=== PATIENT | female | born 1935 | race Caucasian/White ===

== ENCOUNTER 2021-03-13 18:01 | Inpatient (IN) | payer MEDICARE, BC ==
--- NOTE | 2021-03-13 18:26 | ED ---
General Adult HPI - General Chief complaint: Abdominal Pain Stated complaint: Abdominal Pain Time Seen by Provider: 03/13/21 18:02 Source: patient, RN/MD (Case discussed with Dr. Burnett), EMS, RN notes reviewed, old records reviewed (Review of report from outside facility) Mode of arrival: EMS Limitations: no limitations - History of Present Illness Initial comments: Patient is a pleasant 85-year-old female presenting to the emergency Department with abdominal discomfort. Patient does have history of chronic abdominal problems. Onset of symptoms this time was around 4 days ago. Patient did have some vomiting and diarrhea. Discomfort was somewhat severe earlier. Patient has received pain medication and states discomfort is significantly improved and rated 4/10. No nausea at this time. Patient denies ever having fevers. Patient was seen at outside facility with computed tomography scan concerning for ulceration lower portion of the stomach with some local fluid and foci of free intraperitoneal air. patient did receive Rocephin and Flagyl. Patient had white blood cell count of 13 and hemoglobin of 12. - Related Data Allergies Allergy/AdvReac Type Severity Reaction Status Date / Time Penicillins Allergy Rash/Hives Verified 03/13/21 18:25 Sulfa (Sulfonamide Allergy Swelling Verified 03/13/21 18:25 Antibiotics) Review of Systems ROS Statement: Those systems with pertinent positive or pertinent negative responses have been documented in the HPI. ROS Other: All systems not noted in ROS Statement are negative. Constitutional: Denies: fever Eyes: Denies: eye pain ENT: Denies: ear pain Respiratory: Denies: cough Cardiovascular: Denies: chest pain Endocrine: Denies: fatigue Gastrointestinal: Reports: as per HPI, abdominal pain, nausea, vomiting, diarrhea Genitourinary: Denies: dysuria Musculoskeletal: Denies: back pain Skin: Denies: rash Neurological: Denies: weakness Past Medical History Past Medical History: Cancer Additional Past Medical History / Comment(s): Collitis, bladder cancer History of Any Multi-Drug Resistant Organisms: None Reported Past Surgical History: No Surgical Hx Reported Smoking Status: Current every day smoker Past Alcohol Use History: Daily Past Drug Use History: None Reported General Exam Limitations: no limitations General appearance: alert, in no apparent distress Head exam: Present: normocephalic Eye exam: Present: normal appearance Neck exam: Present: normal inspection Respiratory exam: Present: normal lung sounds bilaterally Cardiovascular Exam: Present: regular rate, normal rhythm GI/Abdominal exam: Present: soft, tenderness (Mild to moderate epigastric tenderness), normal bowel sounds. Absent: distended, guarding, rebound, rigid, pulsatile mass Extremities exam: Present: normal inspection Neurological exam: Present: alert Psychiatric exam: Present: normal affect, normal mood Skin exam: Present: normal color Course Vital Signs 03/13/21 18:02 Temperature 99.4 F Pulse Rate 93 Respiratory 18 Rate Blood Pressure 152/66 O2 Sat by Pulse 94 L Oximetry Medical Decision Making - Medical Decision Making Patient updated on plan. Case was discussed with Dr. Alexander who will admit. He requests IV antibiotics, nothing by mouth Disposition Clinical Impression: Abdominal pain, Gastric perforation Disposition: ADMITTED IP TO THIS HOSP Is patient prescribed a controlled substance at d/c from ED?: No Referrals: Yina Mancuso DO [Primary Care Provider] - 1-2 days Decision Time: 18:29
[2021-03-13] MEDS ORDERED: NALOXONE 0.4 MG/ML 1 ML VIAL IV PRN (18:30)
[2021-03-13] MEDS: SODIUM CHLORIDE 0.9% 1,000 ML IV SCH (19:29)
[2021-03-13] MEDS: HYDROmorphone 0.5 MG/0.5 ML SYRINGE IVP PRN (19:34)
[2021-03-13] MEDS: PANTOPRAZOLE 40 MG/10 ML VIAL IV SCH (19:35)
[2021-03-14] MEDS: metroNIDAZOLE-NS PMX 500 MG in SALINE 1 100ML.BAG IVPB SCH ×4 (00:16→17:02)
[2021-03-14] MEDS: SODIUM CHLORIDE 0.9% 1,000 ML IV SCH ×3 (00:16→22:16)
[2021-03-14] MEDS: ONDANSETRON 4 MG/2 ML VIAL IVP PRN ×2 (03:36→22:15)
[2021-03-14] MEDS: PANTOPRAZOLE 40 MG/10 ML VIAL IV SCH (08:55)
[2021-03-14] MEDS: HYDROmorphone 0.5 MG/0.5 ML SYRINGE IVP PRN ×2 (08:58→20:16)
[2021-03-14 11:25] LABS: ALT 10 U/L (4-34); AST 18 U/L (14-36); African American GFR (CKD) >90 (>60 ml/min/1.73 sqM); Albumin 3.1 g/dL (3.5-5.0); Albumin/Globulin Ratio 1.1; Alkaline Phosphatase 55 U/L (38-126); Anion Gap 5 mmol/L; Blood Urea Nitrogen 27 mg/dL (7-17); Calcium 8.9 mg/dL (8.4-10.2); Carbon Dioxide 26 mmol/L (22-30); Chloride 109 mmol/L (98-107); Globulin 2.7 g/dL; Glucose 78 mg/dL (74-99); Non-African American GFR(CKD) 84 (>60 ml/min/1.73 sqM); Potassium 3.8 mmol/L (3.5-5.1); Sodium 140 mmol/L (137-145); Total Bilirubin 0.6 mg/dL (0.2-1.3); Total Protein 5.8 g/dL (6.3-8.2)
[2021-03-14 11:47] LABS: Basophils # (A) 0.03 X 10*3/uL (0.00-0.10); Basophils % (A) 0.3 %; Eosinophils # (A) 0.07 X 10*3/uL (0.04-0.35); Eosinophils % (A) 0.8 %; HCT 32.4 % (37.2-46.3); HGB 10.6 g/dL (12.0-15.0); Immature Grans, Automated 0.4 %; Lymphocytes % (A) 9.7 %; MCH 31.3 pg (27.0-32.0); MCHC 32.7 g/dL (32.0-37.0); MCV 95.6 fL (80.0-97.0); Mean Platelet Volume 8.9 fL (9.5-12.2); Monocytes # (A) 0.59 X 10*3/uL (0.20-1.00); Monocytes % (A) 6.4 %; NRBC Per 100 WBC 0 /100 WBCS (0.0-0.0); Neutrophils # (A) 7.61 X 10*3/uL (1.80-7.70); Neutrophils % (A) 82.4 %; Platelet Count 302 X 10*3/uL (140-440); RBC 3.39 X 10*6/uL (4.10-5.20); RDW 12.5 % (11.5-14.5); WBC 9.24 X 10*3/uL (4.50-10.00)
--- NOTE | 2021-03-14 12:58 | P.GSHP ---
History of Present Illness H&P Date: 03/14/21 Chief Complaint: Epigastric pain This 85-year-old female who was transferred to the hospital for complaints of epigastric pain. Apparently her CAT scan showed some inflammatory changes around stomach. Today the patient feels better. She states her pain is improved. Past Medical History Past Medical History: Cancer Additional Past Medical History / Comment(s): Collitis, bladder cancer History of Any Multi-Drug Resistant Organisms: None Reported Past Surgical History: No Surgical Hx Reported Past Anesthesia/Blood Transfusion Reactions: No Reported Reaction Past Psychological History: Depression Smoking Status: Current every day smoker Past Alcohol Use History: Daily Additional Past Alcohol Use History / Comment(s): DRINKS 1 GLASS OF RED WINE WITH SUPPER DAILY Past Drug Use History: None Reported - Past Family History Father History Unknown: Yes Medications and Allergies Home Medications Medication Instructions Recorded Confirmed Type Budesonide [Budesonide EC] 3 mg PO DAILY 03/13/21 03/13/21 History Cholecalciferol [Vitamin D3 (25 50 mcg PO DAILY 03/13/21 03/13/21 History Mcg = 1000 Iu)] Citalopram Hydrobromide [CeleXA] 40 mg PO DAILY 03/13/21 03/13/21 History Cyanocobalamin (Vitamin B-12) 1,000 mcg PO DAILY 03/13/21 03/13/21 History [Vitamin B-12] Multivit-Min/Iron/Folic/Lutein 1 tab PO DAILY 03/13/21 03/13/21 History [Centrum Silver Women Tablet] Spiriva Respimat 1.25 Mcg/Act 1 puff INHALATION RT-DAILY 03/13/21 03/13/21 History Inhaler traZODone HCL 50 mg PO HS 03/13/21 03/13/21 History Allergies Allergy/AdvReac Type Severity Reaction Status Date / Time Penicillins Allergy Rash/Hives Verified 03/13/21 18:25 Sulfa (Sulfonamide Allergy Swelling Verified 03/13/21 18:25 Antibiotics) Surgical - Exam Vital Signs Temp Pulse Resp BP Pulse Ox 99.4 F 93 18 152/66 94 L 03/13/21 18:02 03/13/21 18:02 03/13/21 18:02 03/13/21 18:02 03/13/21 18:02 - General well developed, well nourished, no distress - Eyes PERRL - ENT normal pinna - Neck no masses - Respiratory normal expansion - Cardiovascular Rhythm: regular - Abdomen Abdomen: soft, non tender Results - Labs 03/14/21 07:39 03/14/21 07:39 Abnormal Lab Results - Last 24 Hours (Table) 03/14/21 03/14/21 Range/Units 07:39 07:39 RBC 3.39 L (4.10-5.20) X 10*6/uL Hgb 10.6 L (12.0-15.0) g/dL Hct 32.4 L (37.2-46.3) % MPV 8.9 L (9.5-12.2) fL Chloride 109 H (98-107) mmol/L BUN 27 H (7-17) mg/dL Total Protein 5.8 L (6.3-8.2) g/dL Albumin 3.1 L (3.5-5.0) g/dL Diabetes panel 03/14/21 Range/Units 07:39 Sodium 140 (137-145) mmol/L Potassium 3.8 (3.5-5.1) mmol/L Chloride 109 H (98-107) mmol/L Carbon Dioxide 26 (22-30) mmol/L BUN 27 H (7-17) mg/dL Creatinine 0.60 (0.52-1.04) mg/dL Glucose 78 (74-99) mg/dL Calcium 8.9 (8.4-10.2) mg/dL AST 18 (14-36) U/L ALT 10 (4-34) U/L Alkaline Phosphatase 55 (38-126) U/L Total Protein 5.8 L (6.3-8.2) g/dL Albumin 3.1 L (3.5-5.0) g/dL Calcium panel 03/14/21 Range/Units 07:39 Calcium 8.9 (8.4-10.2) mg/dL Albumin 3.1 L (3.5-5.0) g/dL Pituitary panel 03/14/21 Range/Units 07:39 Sodium 140 (137-145) mmol/L Potassium 3.8 (3.5-5.1) mmol/L Chloride 109 H (98-107) mmol/L Carbon Dioxide 26 (22-30) mmol/L BUN 27 H (7-17) mg/dL Creatinine 0.60 (0.52-1.04) mg/dL Glucose 78 (74-99) mg/dL Calcium 8.9 (8.4-10.2) mg/dL Adrenal panel 03/14/21 Range/Units 07:39 Sodium 140 (137-145) mmol/L Potassium 3.8 (3.5-5.1) mmol/L Chloride 109 H (98-107) mmol/L Carbon Dioxide 26 (22-30) mmol/L BUN 27 H (7-17) mg/dL Creatinine 0.60 (0.52-1.04) mg/dL Glucose 78 (74-99) mg/dL Calcium 8.9 (8.4-10.2) mg/dL Total Bilirubin 0.6 (0.2-1.3) mg/dL AST 18 (14-36) U/L ALT 10 (4-34) U/L Alkaline Phosphatase 55 (38-126) U/L Total Protein 5.8 L (6.3-8.2) g/dL Albumin 3.1 L (3.5-5.0) g/dL Assessment and Plan Assessment: History of epigastric pain. Patient will undergo computed tomography scan to evaluate for inflammatory changes and stomach.
[2021-03-14] MEDS: NICOTINE 14MG/24HR PATCH TRANSDERM SCH (17:02)
[2021-03-15] MEDS: metroNIDAZOLE-NS PMX 500 MG in SALINE 1 100ML.BAG IVPB SCH ×4 (00:37→17:19)
[2021-03-15] MEDS: NICOTINE 14MG/24HR PATCH TRANSDERM SCH (08:17)
[2021-03-15] MEDS: IOPAMIDOL CONTRAST (ORAL USE) VIAL PO PRN ×2 (08:18→08:56)
[2021-03-15] MEDS: SODIUM CHLORIDE 0.9% 1,000 ML IV SCH (08:23)
[2021-03-15] MEDS: PANTOPRAZOLE 40 MG/10 ML VIAL IV SCH (08:25)
[2021-03-15 09:08] LABS: Basophils # (A) 0.06 X 10*3/uL (0.00-0.10); Basophils % (A) 0.7 %; Eosinophils # (A) 0.07 X 10*3/uL (0.04-0.35); Eosinophils % (A) 0.9 %; HCT 36.5 % (37.2-46.3); HGB 11.7 g/dL (12.0-15.0); Immature Grans, Automated 0.2 %; Lymphocytes # (A) 0.92 X 10*3/uL (0.90-5.00); Lymphocytes % (A) 11.2 %; MCH 30.6 pg (27.0-32.0); MCHC 32.1 g/dL (32.0-37.0); MCV 95.5 fL (80.0-97.0); Mean Platelet Volume 8.5 fL (9.5-12.2); Monocytes % (A) 6.1 %; NRBC Per 100 WBC 0 /100 WBCS (0.0-0.0); Neutrophils # (A) 6.63 X 10*3/uL (1.80-7.70); Neutrophils % (A) 80.9 %; Platelet Count 365 X 10*3/uL (140-440); RBC 3.82 X 10*6/uL (4.10-5.20); RDW 12.7 % (11.5-14.5)
--- NOTE | 2021-03-15 10:59 | CT ---
EXAMINATION TYPE: CT abdomen pelvis w con DATE OF EXAM: 03/15/2021 COMPARISON: CT from outside institution 03/13/2021 HISTORY: GASTRIC INFLAMMATION CT DLP: 533.1 mGycm Automated exposure control for dose reduction was used. TECHNIQUE: Helical acquisition of images from the lung bases through the pelvis have been completed. CONTRAST: Performed with Oral Contrast and with IV Contrast, patient injected with 100 mL of Isovue 300. FINDINGS: Lack of intra-abdominal fat may limit the exam. There are anasarca changes as noted on prio r CT. Suspect there may be a gastric diverticulum extending towards the region of the splenic hilum, cystic focus with associated air-fluid level is present at the level of the gastric fundus, difficult to ex clude an ulcer, consider upper endoscopy. Stomach shows some thickening of the wall possibly due to l ack of distention LUNG BASES: No significant abnormality is appreciated. AORTA: Dense atheromatous calcifications are present within the aorta. LIVER/GB: There is a level present within the gallbladder which may represent bile and vicarious excr etion of contrast within the gallbladder or tumefactive sludge. The liver shows no mass, there is per iportal HALO formation however. PANCREAS: No significant abnormality is seen. SPLEEN: No significant abnormality is seen. ADRENALS: No significant abnormality is seen. KIDNEYS: Cystic focus is present associated with the right kidney as on prior, some associated soft t issue extends medially at this level, lesion is indeterminate, appearance may represent obstructed up per pole duplicated system, there is some cortical atrophy is level, loss of normal parenchyma, lower pole excretes contrast. Cortical cyst also associated with the upper pole the left kidney REPRODUCTIVE ORGANS: No significant abnormality is seen BOWEL: Colonic wall thickening?)J. FREE AIR: No Free Air visible. ASCITES: Small amount present within the abdomen about the liver and spleen, within the abdomen and pelvis. PELVIC ADENOPATHY: None visualized. RETROPERITONEAL ADENOPATHY: No Retroperitoneal Adenopathy visible. URINARY BLADDER: Urinary bladder shows a thickened wall. OSSEOUS STRUCTURES: Degenerative disc changes, facet arthropathy noted in the visualized spine. IMPRESSION: PERIPORTAL HALO CAN BE SEEN IN SUCH ENTITIES CONGESTIVE HEART FAILURE, CHOLANGITIS, PYELONEPHRITIS , HEPATITIS INDETERMINATE CYSTIC FOCUS WITH AIR-FLUID LEVEL IS NOTED MAY BE ASSOCIATED WITH THE CEPHA LAD ASPECT OF THE STOMACH. 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 Correlate to exclude cystitis. There is some mild ascites, anasarca change, additional finding s above
--- NOTE | 2021-03-15 12:26 | P.PN ---
Progress Note - Text Progress Note Date: 03/15/21 Patient maintained stable. She has some mild epigastric pain. CAT scan performed suspicious for a gastric ulcer. On exam vital signs are stable. Abdomen is soft. Patient undergo EGD in the a.m.
[2021-03-15] MEDS: HYDROmorphone 0.5 MG/0.5 ML SYRINGE IVP PRN (13:06)
[2021-03-15] MEDS ORDERED: IPRATROPIUM-ALBUTEROL 3 ML NEB INHALATION PRN (13:08)
--- NOTE | 2021-03-15 13:20 | P.CONS ---
History of Present Illness - Reason for Consult Hypertension management - History of Present Illness 85-year-old the a pleasant female came in with compensative diffuse abdominal pain sharp in nature along with the nausea has been going on for couple days, patient denied any diarrhea. Patient doesn't have any fever chills doesn't have any leukocytosis patient has a CT of the abdomen which showed some a proximal to the stomach because of which patient was admitted to general surgery and patient is presently on metronidazole and levofloxacin. Concern for peptic ulcer disease and perforation. Patient pain significant improved. Patient blood pressure is bit elevated today. Patient will undergo upper GI endoscopy tomorrow. REVIEW OF SYSTEMS: CONSTITUTIONAL: No fever, no malaise, no fatigue. HEENT: No recent visual problems or hearing problems. Denied any sore throat. CARDIOVASCULAR: No chest pain, orthopnea, PND, no palpitations, no syncope. PULMONARY: No shortness of breath, no cough, no hemoptysis. GASTROINTESTINAL: As mentioned in HPI NEUROLOGICAL: No headaches, no weakness, no numbness. HEMATOLOGICAL: Denies any bleeding or petechiae. GENITOURINARY: Denies any burning micturition, frequency, or urgency. MUSCULOSKELETAL/RHEUMATOLOGICAL: Denies any joint pain, swelling, or any muscle pain. ENDOCRINE: Denies any polyuria or polydipsia. The rest of the 14-point review of systems is negative. PHYSICAL EXAMINATION: GENERAL: The patient is alert and oriented x3, not in any acute distress. Well developed, well nourished. HEENT: Pupils are round and equally reacting to light. EOMI. No scleral icterus. No conjunctival pallor. Normocephalic, atraumatic. No pharyngeal erythema. No thyromegaly. CARDIOVASCULAR: S1 and S2 present. No murmurs, rubs, or gallops. PULMONARY: Chest is clear to auscultation, no wheezing or crackles. ABDOMEN: Firm minimal diffuse tenderness, nondistended, normoactive bowel sounds. No palpable organomegaly. MUSCULOSKELETAL: No joint swelling or deformity. EXTREMITIES: No cyanosis, clubbing, or pedal edema. NEUROLOGICAL: Gross neurological examination did not reveal any focal deficits. SKIN: No rashes. Assessment and plan -Possible peptic ulcer disease with concerns of present perforation: Continue present antibiotics rest of the management as per Gen. surgery -Hypertension patient was started on oral hydralazine -COPD without any acute exacerbation continue with albuterol inhalational -Continued nicotine use: Counseling was provided DVT prophylaxis: As per primary service Past Medical History Past Medical History: Cancer Additional Past Medical History / Comment(s): Collitis, bladder cancer History of Any Multi-Drug Resistant Organisms: None Reported Past Surgical History: No Surgical Hx Reported Past Anesthesia/Blood Transfusion Reactions: No Reported Reaction Past Psychological History: Depression Smoking Status: Current every day smoker Past Alcohol Use History: Daily Additional Past Alcohol Use History / Comment(s): DRINKS 1 GLASS OF RED WINE WITH SUPPER DAILY Past Drug Use History: None Reported - Past Family History Father History Unknown: Yes Medications and Allergies Home Medications Medication Instructions Recorded Confirmed Type Budesonide [Budesonide EC] 3 mg PO DAILY 03/13/21 03/13/21 History Cholecalciferol [Vitamin D3 (25 50 mcg PO DAILY 03/13/21 03/13/21 History Mcg = 1000 Iu)] Citalopram Hydrobromide [CeleXA] 40 mg PO DAILY 03/13/21 03/13/21 History Cyanocobalamin (Vitamin B-12) 1,000 mcg PO DAILY 03/13/21 03/13/21 History [Vitamin B-12] Multivit-Min/Iron/Folic/Lutein 1 tab PO DAILY 03/13/21 03/13/21 History [Centrum Silver Women Tablet] Spiriva Respimat 1.25 Mcg/Act 1 puff INHALATION RT-DAILY 03/13/21 03/13/21 History Inhaler traZODone HCL 50 mg PO HS 03/13/21 03/13/21 History Allergies Allergy/AdvReac Type Severity Reaction Status Date / Time Penicillins Allergy Rash/Hives Verified 03/13/21 18:25 Sulfa (Sulfonamide Allergy Swelling Verified 03/13/21 18:25 Antibiotics) Physical Exam Vitals: Vital Signs Temp Pulse Resp BP Pulse Ox 03/15/21 08:27 97.7 F 81 18 198/91 97 03/15/21 02:02 97.2 F L 79 17 179/84 94 L 03/14/21 20:06 97.5 F L 76 17 177/83 94 L 03/14/21 13:18 97.9 F 80 17 153/73 90 L Intake and Output 03/14/21 03/15/21 03/15/21 22:59 06:59 14:59 Intake Total 1320 Balance 1320 Intake: Intake, IV Titration 1320 Amount Sodium Chloride 0.9% 1, 1170 000 ml @ 130 mls/hr IV . Q7H42M REPLACED BY [facility] Rx#:[id number] cefTRIAXone 2 gm In 50 Sodium Chloride 0.9% 50 ml @ 100 mls/hr IVPB Q12HR [facility] Rx#:[id number] metroNIDAZOLE-NS PMX 500 100 mg In Saline 1 100ml.bag @ 100 mls/hr IVPB Q6HR REPLACED BY [facility] Rx#:[id number] Other: Voiding Method Toilet Toilet # Voids 3 Results CBC & Chem 7: 03/15/21 06:29 03/14/21 07:39 Labs: Abnormal Lab Results - Last 24 Hours (Table) 03/15/21 Range/Units 06:29 RBC 3.82 L (4.10-5.20) X 10*6/uL Hgb 11.7 L (12.0-15.0) g/dL Hct 36.5 L (37.2-46.3) % MPV 8.5 L (9.5-12.2) fL
[2021-03-15] MEDS: IPRATROPIUM 0.5 MG/2.5 ML NEBU INHALATION SCH ×2 (15:42→19:07)
[2021-03-15] MEDS ORDERED: hydrALAZINE HCL 25 MG TAB PO SCH (16:00)
[2021-03-15] MEDS: hydrALAZINE HCL 25 MG TAB PO SCH ×2 (17:21→19:31)
[2021-03-15] MEDS: traZODone HCL 50 MG TAB PO SCH (21:55)
[2021-03-16] MEDS: metroNIDAZOLE-NS PMX 500 MG in SALINE 1 100ML.BAG IVPB SCH ×5 (01:04→23:44)
[2021-03-16] MEDS: SODIUM CHLORIDE 0.9% 1,000 ML IV SCH ×5 (02:18→23:44)
[2021-03-16] MEDS: hydrALAZINE HCL 25 MG TAB PO SCH ×3 (08:24→22:29)
[2021-03-16] MEDS: CITALOPRAM HYDROBROMIDE 20 MG TAB PO SCH (08:24)
[2021-03-16] MEDS: NICOTINE 14MG/24HR PATCH TRANSDERM SCH (08:24)
[2021-03-16] MEDS: PANTOPRAZOLE 40 MG/10 ML VIAL IV SCH (08:25)
[2021-03-16] MEDS: IPRATROPIUM 0.5 MG/2.5 ML NEBU INHALATION SCH ×4 (08:54→20:01)
[2021-03-16 13:14] VITALS: BMI 17.9
[2021-03-16] MEDS ORDERED: PROPOFOL 10 MG/ML 20 ML VIAL IV ONE (14:13)
[2021-03-16] MEDS ORDERED: LIDOCAINE 1% INJ 10MG/ML (20 ML MDV) ONE (14:13)
[2021-03-16] MEDS ORDERED: IV FLUID CONTINUATION 1,000 ML IV ONE (14:14)
--- NOTE | 2021-03-16 14:28 | P.OP ---
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 She received IV sedation. The gastroscope placed oropharynx passed in the esophagus and stomach. Scope was placed into the antrum. In the midportion of the stomach there was a large ulcer seen. The ulcer was penetrated. There was a tunnel visualized from the ulcer. The area ulcer was biopsied. The scope was then withdrawn. Patient tolerated procedure well.
--- NOTE | 2021-03-16 14:29 | P.PN ---
Progress Note - Text Progress Note Date: 03/16/21 Large penetrating ulcer seen on EGD. The patient has a large tunnel within the ulcer. The patient will need partial gastrectomy due to the ulcer disease.
[2021-03-16] MEDS: HYDROmorphone 0.5 MG/0.5 ML SYRINGE IVP PRN (16:45)
[2021-03-16] MEDS ORDERED: hydrALAZINE HCL 25 MG TAB PO ONE (22:00)
[2021-03-16] MEDS: traZODone HCL 50 MG TAB PO SCH (22:28)
--- NOTE | 2021-03-17 00:30 | P.PN ---
Subjective Progress Note Date: 03/16/21 - Reason for Consult Hypertension management - History of Present Illness 85-year-old the a pleasant female came in with compensative diffuse abdominal pain sharp in nature along with the nausea has been going on for couple days, patient denied any diarrhea. Patient doesn't have any fever chills doesn't have any leukocytosis patient has a CT of the abdomen which showed some a proximal to the stomach because of which patient was admitted to general surgery and patient is presently on metronidazole and levofloxacin. Concern for peptic ulcer disease and perforation. Patient pain significant improved. Patient blood pressure is bit elevated today. Patient will undergo upper GI endoscopy tomorro w. 03/16/2021 Patient is seen in follow up this morning and continues with abdominal pain. General surgery as attending plans on EGD today and patient is currently NPO. Patient denies any nausea or vomiting. Patient reports to passing gas and having bowel movements and denies blood in the stool. Patient is continued on IV ceftriaxone and flagyl for concern for possible perforation. No new labs today and will repeat in the am. Review of systems: CONSTITUTIONAL: No fever, no malaise, no fatigue. CARDIOVASCULAR: No chest pain, orthopnea, PND, no palpitations, no syncope. PULMONARY: No shortness of breath, no cough, no hemoptysis. GASTROINTESTINAL: As mentioned in HPI NEUROLOGICAL: No headaches, no weakness, no numbness. GENITOURINARY: Denies any burning micturition, frequency, or urgency. MUSCULOSKELETAL/RHEUMATOLOGICAL: Denies any joint pain, swelling, or any muscle pain. Active Medications Albuterol/Ipratropium (Ipratropium-Albuterol 3 Ml Neb) 3 ml INHALATION RT-QID PRN PRN Reason: Shortness Of Breath Or Wheezing Citalopram Hydrobromide (Citalopram Hydrobromide 20 Mg Tab) 40 mg PO DAILY [facility] Last Admin: 03/16/21 08:24 Dose: 40 mg Documented by: Hydralazine HCl (Hydralazine Hcl 25 Mg Tab) 25 mg PO TID [facility] Last Admin: 03/16/21 22:29 Dose: Not Given Documented by: Hydromorphone HCl (Hydromorphone 0.5 Mg/0.5 Ml Syringe) 0.5 mg IVP Q3HR PRN PRN Reason: Moderate Pain Last Admin: 03/16/21 16:45 Dose: 0.5 mg Documented by: Ceftriaxone Sodium 2 gm/ (Sodium Chloride) 50 mls @ 100 mls/hr IVPB Q12HR [facility] Last Admin: 03/16/21 23:06 Dose: 100 mls/hr Documented by: Metronidazole 500 mg/ IV (Solution) 100 mls @ 100 mls/hr IVPB Q6HR [facility] Last Admin: 03/16/21 23:44 Dose: 100 mls/hr Documented by: Sodium Chloride (Saline 0.9%) 1,000 mls @ 75 mls/hr IV .[id number] [facility] Last Admin: 03/16/21 23:44 Dose: 75 mls/hr Documented by: Ipratropium [place] (Ipratropium 0.5 Mg/2.5 Ml Nebu) 0.5 mg INHALATION RT-QID [facility] Last Admin: 03/16/21 20:01 Dose: Not Given Documented by: Naloxone HCl (Naloxone 0.4 Mg/Ml 1 Ml Vial) 0.2 mg IV Q2M PRN PRN Reason: Opioid Reversal Nicotine (Nicotine 14mg/24hr Patch) 1 patch TRANSDERM DAILY [facility] Last Admin: 03/16/21 08:24 Dose: 1 patch Documented by: Ondansetron HCl (Ondansetron 4 Mg/2 Ml Vial) 4 mg IVP Q8HR PRN PRN Reason: Nausea And Vomiting Last Admin: 03/14/21 22:15 Dose: 4 mg Documented by: Pantoprazole Sodium (Pantoprazole 40 Mg/10 Ml Vial) 40 mg IV DAILY [facility] Last Admin: 03/16/21 08:25 Dose: 40 mg Documented by: Trazodone HCl (Trazodone Hcl 50 Mg Tab) 50 mg PO HS [facility] Last Admin: 03/16/21 22:28 Dose: 50 mg Documented by: PHYSICAL EXAMINATION: GENERAL: The patient is alert and oriented x3, not in any acute distress. Well developed, well nourished. HEENT: Pupils are round and equally reacting to light. EOMI. No scleral icterus. No conjunctival pallor. Normocephalic, atraumatic. No pharyngeal erythema. No thyromegaly. CARDIOVASCULAR: S1 and S2 present. No murmurs, rubs, or gallops. PULMONARY: Chest is clear to auscultation, no wheezing or crackles. ABDOMEN: Firm minimal diffuse tenderness, nondistended, normoactive bowel sounds. No palpable organomegaly. MUSCULOSKELETAL: No joint swelling or deformity. EXTREMITIES: No cyanosis, clubbing, or pedal edema. NEUROLOGICAL: Gross neurological examination did not reveal any focal deficits. SKIN: No rashes. Assessment and plan: -Possible peptic ulcer disease with concerns of possible perforation: Continue present antibiotics rest of the management as per Gen. surgery -status post EGD showing large penetrating ulcer with large tunneling within the ulcer. Patient is scheduled for partial gastrectomy on 03/18/21 -Hypertension patient continued on oral hydralazine -COPD without any acute exacerbation continue with albuterol inhalational treatments -Continued nicotine use: Counseling was provided -DVT prophylaxis: As per primary service -GI prophylaxis -Full code, no intubation Plan: Recommend to continue with current medication management. Continue gentle IV hydration and will repeat am labs. Continue IV antibiotics. Patient resumed on clear liquid diet and scheduled for partial gastrectomy on 03/18 secondary to peptic ulcer disease. Will continue to follow along with surgery during hospitalization. Thank you for this consultation. Objective - Vital Signs Vital signs: Vital Signs Temp 97.8 F 03/16/21 07:19 Pulse 80 03/16/21 07:19 Resp 19 03/16/21 07:19 BP 153/76 03/16/21 07:19 Pulse Ox 92 L 03/16/21 07:19 Intake & Output 03/15/21 03/16/21 03/16/21 18:59 06:59 18:59 Intake Total 150 Balance 150 Intake: Intake, IV Titration 150 Amount cefTRIAXone 2 gm In 50 Sodium Chloride 0.9% 50 ml @ 100 mls/hr IVPB Q12HR [facility] Rx#:[id number] metroNIDAZOLE-NS PMX 500 100 mg In Saline 1 100ml.bag @ 100 mls/hr IVPB Q6HR [facility] Rx#:[id number] Other: Voiding Method Toilet Toilet # Bowel Movements 1 - Labs CBC & Chem 7: 03/15/21 06:29 03/14/21 07:39 Labs: Abnormal Lab Results - Last 24 Hours (Table) 03/15/21 Range/Units 06:29 RBC 3.82 L (4.10-5.20) X 10*6/uL Hgb 11.7 L (12.0-15.0) g/dL Hct 36.5 L (37.2-46.3) % MPV 8.5 L (9.5-12.2) fL
[2021-03-17 06:24] LABS: Basophils % (A) 1 %; Eosinophils # (A) 0.1 k/uL (0-0.7); Eosinophils % (A) 2 %; HCT 38.8 % (34.0-46.0); Lymphocytes % (A) 13 %; MCH 31.9 pg (25.0-35.0); MCHC 33.5 g/dL (31.0-37.0); MCV 95.3 fL (80.0-100.0); Monocytes # (A) 0.5 k/uL (0-1.0); Monocytes % (A) 6 %; Neutrophils # (A) 5.8 k/uL (1.3-7.7); Neutrophils % (A) 77 %; Platelet Count 411 k/uL (150-450); RBC 4.07 m/uL (3.80-5.40); RDW 12.2 % (11.5-15.5); WBC 7.5 k/uL (3.8-10.6)
[2021-03-17] MEDS: metroNIDAZOLE-NS PMX 500 MG in SALINE 1 100ML.BAG IVPB SCH ×5 (06:28→23:41)
[2021-03-17 06:45] LABS: African American GFR (CKD) >90 (>60 ml/min/1.73 sqM); Anion Gap 4 mmol/L; Blood Urea Nitrogen 16 mg/dL (7-17); Calcium 8.5 mg/dL (8.4-10.2); Carbon Dioxide 23 mmol/L (22-30); Chloride 108 mmol/L (98-107); Glucose 79 mg/dL (74-99); Non-African American GFR(CKD) 89 (>60 ml/min/1.73 sqM); Potassium 3.5 mmol/L (3.5-5.1); Sodium 135 mmol/L (137-145)
[2021-03-17] MEDS: NICOTINE 14MG/24HR PATCH TRANSDERM SCH (08:26)
[2021-03-17] MEDS: hydrALAZINE HCL 25 MG TAB PO SCH (08:26)
[2021-03-17] MEDS: PANTOPRAZOLE 40 MG/10 ML VIAL IV SCH (08:27)
[2021-03-17] MEDS: CITALOPRAM HYDROBROMIDE 20 MG TAB PO SCH (08:27)
[2021-03-17] MEDS: IPRATROPIUM 0.5 MG/2.5 ML NEBU INHALATION SCH ×4 (09:34→20:20)
[2021-03-17] MEDS: hydrALAZINE HCL 50 MG TAB PO SCH ×3 (10:15→21:33)
--- NOTE | 2021-03-17 11:21 | P.PN ---
Subjective Progress Note Date: 03/17/21 - Reason for Consult Hypertension management - History of Present Illness 85-year-old the a pleasant female came in with compensative diffuse abdominal pain sharp in nature along with the nausea has been going on for couple days, patient denied any diarrhea. Patient doesn't have any fever chills doesn't have any leukocytosis patient has a CT of the abdomen which showed some a proximal to the stomach because of which patient was admitted to general surgery and patient is presently on metronidazole and levofloxacin. Concern for peptic ulcer disease and perforation. Patient pain significant improved. Patient blood pressure is bit elevated today. Patient will undergo upper GI endoscopy tomorro w. 03/16/2021 Patient is seen in follow up this morning and continues with abdominal pain. General surgery as attending plans on EGD today and patient is currently NPO. Patient denies any nausea or vomiting. Patient reports to passing gas and having bowel movements and denies blood in the stool. Patient is continued on IV ceftriaxone and flagyl for concern for possible perforation. No new labs today and will repeat in the am. 03/17/2021 Patient is seen and evaluated in follow-up and continues with abdominal pain. Patient underwent EGD yesterday which shows a large ulcer with tunneling and is scheduled to undergo partial gastrectomy with Dr. Santos. Plans were for surgery on Tuesday although patient is having large amounts of bloody stools and will be going to surgery today. Patient was made nothing by mouth. Risks versus benefits were discussed with the patient and patient is willing to proceed with intervention. Patient is an intermediate risk given her long extensive history of continued tobacco abuse although given the new findings and urgency with bleeding patient should go for surgical intervention today. Patient denies any chest pain or shortness of breath. Patient is afebrile. No reports of nausea or vomiting and patient is nothing by mouth for the procedure. Labs: WBC is 7.5, hemoglobin is 13.0, platelets are 411, sodium is 135, potassium is 3.5, BUN is 16, creatinine is 0.5, calcium is 8.5, C. diff testing was negative. Review of systems: CONSTITUTIONAL: No fever, no malaise, no fatigue. CARDIOVASCULAR: No chest pain, orthopnea, PND, no palpitations, no syncope. PULMONARY: No shortness of breath, no cough, no hemoptysis. GASTROINTESTINAL: As mentioned in HPI NEUROLOGICAL: No headaches, no weakness, no numbness. GENITOURINARY: Denies any burning micturition, frequency, or urgency. MUSCULOSKELETAL/RHEUMATOLOGICAL: Denies any joint pain, swelling, or any muscle pain. Active Medications Albuterol/Ipratropium (Ipratropium-Albuterol 3 Ml Neb) 3 ml INHALATION RT-QID PRN PRN Reason: Shortness Of Breath Or Wheezing Citalopram Hydrobromide (Citalopram Hydrobromide 20 Mg Tab) 40 mg PO DAILY [facility] Last Admin: 03/17/21 08:27 Dose: 40 mg Documented by: Hydralazine HCl (Hydralazine Hcl 50 Mg Tab) 50 mg PO TID [facility] Last Admin: 03/17/21 10:15 Dose: Not Given Documented by: Hydromorphone HCl (Hydromorphone 0.5 Mg/0.5 Ml Syringe) 0.5 mg IVP Q3HR PRN PRN Reason: Moderate Pain Last Admin: 03/16/21 16:45 Dose: 0.5 mg Documented by: Ceftriaxone Sodium 2 gm/ (Sodium Chloride) 50 mls @ 100 mls/hr IVPB Q12HR [facility] Last Admin: 03/17/21 08:27 Dose: 100 mls/hr Documented by: Metronidazole 500 mg/ IV (Solution) 100 mls @ 100 mls/hr IVPB Q6HR [facility] Last Admin: 03/17/21 06:28 Dose: 100 mls/hr Documented by: Sodium Chloride (Saline 0.9%) 1,000 mls @ 75 mls/hr IV .[id number] [facility] Last Admin: 03/16/21 23:44 Dose: 75 mls/hr Documented by: Ipratropium [place] (Ipratropium 0.5 Mg/2.5 Ml Nebu) 0.5 mg INHALATION RT-QID [facility] Last Admin: 03/17/21 09:34 Dose: Not Given Documented by: Naloxone HCl (Naloxone 0.4 Mg/Ml 1 Ml Vial) 0.2 mg IV Q2M PRN PRN Reason: Opioid Reversal Nicotine (Nicotine 14mg/24hr Patch) 1 patch TRANSDERM DAILY [facility] Last Admin: 03/17/21 08:26 Dose: 1 patch Documented by: Ondansetron HCl (Ondansetron 4 Mg/2 Ml Vial) 4 mg IVP Q8HR PRN PRN Reason: Nausea And Vomiting Last Admin: 03/14/21 22:15 Dose: 4 mg Documented by: Pantoprazole Sodium (Pantoprazole 40 Mg/10 Ml Vial) 40 mg IV DAILY [facility] Last Admin: 03/17/21 08:27 Dose: 40 mg Documented by: Trazodone HCl (Trazodone Hcl 50 Mg Tab) 50 mg PO HS [facility] Last Admin: 03/16/21 22:28 Dose: 50 mg Documented by: PHYSICAL EXAMINATION: GENERAL: The patient is alert and oriented x3, not in any acute distress. Well developed, well nourished. HEENT: Pupils are round and equally reacting to light. EOMI. No scleral icterus. No conjunctival pallor. Normocephalic, atraumatic. No pharyngeal erythema. No thyromegaly. CARDIOVASCULAR: S1 and S2 present. No murmurs, rubs, or gallops. PULMONARY: Chest is clear to auscultation, no wheezing or crackles. ABDOMEN: Firm minimal diffuse tenderness, nondistended, normoactive bowel sounds. No palpable organomegaly. MUSCULOSKELETAL: No joint swelling or deformity. EXTREMITIES: No cyanosis, clubbing, or pedal edema. NEUROLOGICAL: Gross neurological examination did not reveal any focal deficits. SKIN: No rashes. Assessment and plan: -Possible peptic ulcer disease with concerns of possible perforation: Continue present antibiotics rest of the management as per Gen. surgery. Plan is for partial gastrectomy today and patient is nothing by mouth -status post EGD showing large penetrating ulcer with large tunneling within the ulcer. Patient is scheduled for partial gastrectomy on 03/18/21 -Hypertension patient continued on oral hydralazine -COPD without any acute exacerbation continue with albuterol inhalational treatments -Continued nicotine use: Counseling was provided -DVT prophylaxis: As per primary service -GI prophylaxis -Full code, no intubation Plan: Recommend to continue with current medication management. Continue gentle IV hydration and will repeat am labs. Continue IV antibiotics. Per nursing staff patient having large bloody stools and is made nothing by mouth and is being scheduled for partial gastrectomy today with Dr. santos. Patient is intermediate risk given her extensive history of ongoing nicotine abuse although given the urgency and continued bleeding risk versus benefits were explained with the patient and patient is willing to proceed with the procedure. Patient should go for surgical intervention today. Will repeat a.m. labs and continue to monitor closely. Will continue to follow along with surgery during hospitalization. Thank you for this consultation. Objective - Vital Signs Vital signs: Vital Signs Temp 97.5 F L 03/17/21 08:00 Pulse 76 03/17/21 08:00 Resp 16 03/17/21 08:00 BP 173/79 03/17/21 08:00 Pulse Ox 94 L 03/17/21 08:00 Intake & Output 03/16/21 03/17/21 03/17/21 18:59 06:59 18:59 Intake Total 100 Balance 100 Weight 43.091 kg Intake: IV 100 Other: Voiding Method Toilet Toilet # Voids 2 1 # Bowel Movements 1 - Labs CBC & Chem 7: 03/17/21 05:03 03/17/21 05:03 Labs: Abnormal Lab Results - Last 24 Hours (Table) 03/17/21 03/17/21 Range/Units 03:00 05:03 Sodium 135 L (137-145) mmol/L Chloride 108 H (98-107) mmol/L Creatinine 0.50 L (0.52-1.04) mg/dL Stool Occult Blood Positive H (Negative)
--- NOTE | 2021-03-17 15:00 | ECHOF ---
Referral Reason:routine MEASUREMENTS -------- HEIGHT: 154.9 cm WEIGHT: 43.1 kg BP: 141/78 IVSd: 1.0 cm (0.6 - 1.1) LVIDd: 4.1 cm (3.9 - 5.3) LVPWd: 1.1 cm (0.6 - 1.1) EDV(Teich): 76 ml IVSs: 1.5 cm LVIDs: 3.0 cm LVPWs: 1.6 cm %IVS Thck: 40 % ESV(Teich): 35 ml EF(Teich): 54 % %FS: 28 % SV(Teich): 41 ml LA Diam: 3.1 cm (2.7 - 3.8) RVIDd: 2.3 cm (< 3.3) LALs A4C: 3.6 cm LAAs A4C: 10.8 cm LAESV A-L A4C: 28 ml LAESV MOD A4C: 23 ml LALs A2C: 5.1 cm LAAs A2C: 14.6 cm LAESV A-L A2C: 36 ml LAESV MOD A2C: 34 ml LAESV(A-L): 37 ml LAESV Index (A-L): 27.16 ml/m Ao Diam: 2.9 cm (2.0 - 3.7) AV Cusp: 1.9 cm (1.5 - 2.6) EPSS: 1.0 cm MV E David: 0.52 m/s MV DecT: 381 ms MV Dec [place]: 1.4 m/s MV A David: 1.00 m/s MV E/A Ratio: 0.52 MV PHT: 110 ms AV Vmax: 1.31 m/s AV maxP.82 mmHg AR Vmax: 3.24 m/s AR maxP.98 mmHg AR PHT: 494 ms AR Dec Time: 1704 ms AR Dec [place]: 1.9 m/s TR Vmax: 2.77 m/s TR maxP.69 mmHg RAP: 5.00 mmHg RVSP: 35.69 mmHg MV EF SLOPE: 46.16 mm/s (70 - 150) MV EXCURSION: 5.21 mm (> 18.000) FINDINGS -------- Sinus rhythm. This was a technically good study. The left ventricular size is normal. Left ventricular wall thickness is normal. Overall left vent ricular systolic function is normal with, an EF between 55 - 60 %. The right ventricle is normal in size. Normal LA size by volume 22+/-6 ml/m2. The right atrium is normal in size. Interatrial and interventricular septum intact. There is mild aortic regurgitation. There is trace to mild mitral regurgitation. Mild tricuspid regurgitation present. There is mild pulmonary hypertension. The right ventricular systolic pressure, as measured by Doppler, is 35.69mmHg. Trace/mild (physiologic) pulmonic regurgitation. The aortic root, ascending aorta and aortic arch are normal. Normal inferior vena cava with normal inspiratory collapse consistent with estimated right atrial pre ssure of 5 mmHg. There is no pericardial effusion. Small Pleural Effusion. CONCLUSIONS -------- 1. The left ventricular size is normal. 2. Left ventricular wall thickness is normal. 3. Overall left ventricular systolic function is normal with, an EF between 55 - 60 %. 4. There is mild aortic regurgitation. 5. There is trace to mild mitral regurgitation. 6. Mild tricuspid regurgitation present. 7. There is mild pulmonary hypertension. 8. The right ventricular systolic pressure, as measured by Doppler, is 35.69mmHg. 9. Trace/mild (physiologic) pulmonic regurgitation. 10. There is no pericardial effusion. 11. Small Pleural Effusion. [employer]ANT CON[employer]CTION WORKER: Naida Hagen RDCS
[2021-03-17] MEDS ORDERED: LACTATED RINGERS 1,000 ML IV ONE ×2 (16:46→18:44)
[2021-03-17] MEDS ORDERED: DEXAMETHASONE SOD PHOSPHATE 4 MG/ML 1 ML VIAL IV ONE (17:30)
[2021-03-17] MEDS ORDERED: ONDANSETRON 4 MG/2 ML VIAL IVP ONE (17:30)
[2021-03-17] MEDS ORDERED: ROCURONIUM 10 MG/ML (5 ML VIAL) IV ONE (17:36)
[2021-03-17] MEDS ORDERED: GLYCOPYRROLATE 0.2 MG/ML 2 ML VIAL ONE (17:36)
[2021-03-17] MEDS ORDERED: HYDROmorphone (PF) 1 MG/ML ONE (17:36)
[2021-03-17] MEDS ORDERED: fentaNYL (PF) 50 MCG/ML 2 ML AMP ONE (17:36)
[2021-03-17] MEDS ORDERED: PROPOFOL 10 MG/ML 20 ML VIAL IV ONE (17:36)
[2021-03-17] MEDS ORDERED: SUCCINYLCHOLINE CHLORIDE 100 MG/5 ML SYR IV ONE (17:36)
[2021-03-17] MEDS ORDERED: LIDOCAINE 1% INJ 10MG/ML (20 ML MDV) ONE (17:36)
[2021-03-17] MEDS ORDERED: NEOSTIGMINE 1 MG/ML 10 ML VIAL ONE (17:36)
[2021-03-17] MEDS: SODIUM CHLORIDE 0.9% 1,000 ML IV SCH ×2 (18:47→23:43)
--- NOTE | 2021-03-17 18:51 | P.PN ---
Progress Note - Text Progress Note Date: 03/17/21 Patient was seen on rounds today. She has increased complaints of epigastric pain. On exam vital signs are stable. Abdomen soft. There is tenderness throughout the epigastric area. This is increased compared to yesterday. Patient most likely has a perforated gastric ulcer. The patient will be taken to OR today for exploration for gastric perforation. I did explain to the patient that I'm not sure was causing ulcer. This could be a gastric cancer. All her questions were answered.
--- NOTE | 2021-03-17 18:56 | P.OP ---
Date of Procedure: 03/17/21 Preoperative Diagnosis: Gastric perforation Postoperative Diagnosis: Perforated gastric ulcer with penetration into the lesser sac Procedure(s) Performed: Exploratory laparotomy Distal gastrectomy with gastrojejunostomy Anesthesia: MACIEJ Surgeon: Lance Alexander Estimated Blood Loss (ml): 25 Pathology: other (Stomach) Condition: stable Disposition: PACU Description of Procedure: The patient's placed in the operative table in the supine position. She received general endotracheal tube anesthesia. Her abdomen was prepped and draped usual fashion. And was entered through midline incision. The Bookwalter retractor was used for retraction. The stomach was visualized. The stone was palpated. In the mid body of stomach appeared to be a irregular mass. The lesser sac was opened this is where the gastric perforation was. Decided perform a distal gastrectomy. It was unsure if this was a gastric cancer. The lesser curvature of the stomach was divided with the Enseal device and the greater curvature stomach without incident device. The linear stapler was then placed across stomach and fired. The duodenum was immobilized. The stapler was then fired across the duodenum. The specimen sent to pathology. The duodenal stump was oversewn with 3-0 GI silk suture. A looped gastrojejunostomy brought up on the anterior wall the stomach. A [id number] anastomosis was then created using the JACQUELINE and TA stapler. 3-0 GI silk sutures as a crotch stitch. The abdomen was area there is no bleeding seen. The fascia was then closed in looped #1 PDS suture. Skin was closed kandace. Patient top she will was sent to recovery room in stable condition.
[2021-03-17] MEDS: HYDROmorphone 0.5 MG/0.5 ML SYRINGE IVP ONE ×2 (19:06→19:21)
[2021-03-17] MEDS ORDERED: HYDROmorphone 1 MG/ML 1 ML SYRINGE IM PRN (19:16)
[2021-03-17] MEDS: hydrALAZINE HCL 20 MG/ML 1 ML VIAL IVP ONE ×3 (20:36→20:56)
[2021-03-17] MEDS: traZODone HCL 50 MG TAB PO SCH (21:32)
[2021-03-17] MEDS: HYDROmorphone 0.5 MG/0.5 ML SYRINGE IVP PRN (21:35)
[2021-03-17] MEDS ORDERED: hydrALAZINE HCL 20 MG/ML 1 ML VIAL IVP PRN (22:09)
[2021-03-18] MEDS: HYDROmorphone 0.5 MG/0.5 ML SYRINGE IVP PRN ×3 (02:38→10:25)
[2021-03-18] MEDS: metroNIDAZOLE-NS PMX 500 MG in SALINE 1 100ML.BAG IVPB SCH ×4 (05:14→23:46)
[2021-03-18 05:45] LABS: Basophils % (A) 0 %; Eosinophils % (A) 0 %; HCT 42.6 % (34.0-46.0); HGB 13.6 gm/dL (11.4-16.0); Lymphocytes # (A) 0.7 k/uL (1.0-4.8); Lymphocytes % (A) 4 %; MCH 30.9 pg (25.0-35.0); MCHC 31.9 g/dL (31.0-37.0); MCV 96.7 fL (80.0-100.0); Mean Platelet Volume 6.7; Monocytes # (A) 0.7 k/uL (0-1.0); Monocytes % (A) 4 %; Neutrophils # (A) 14.6 k/uL (1.3-7.7); Neutrophils % (A) 91 %; Platelet Count 478 k/uL (150-450); WBC 16.1 k/uL (3.8-10.6)
[2021-03-18 06:02] LABS: African American GFR (CKD) >90 (>60 ml/min/1.73 sqM); Anion Gap 7 mmol/L; Blood Urea Nitrogen 17 mg/dL (7-17); Calcium 8.7 mg/dL (8.4-10.2); Carbon Dioxide 23 mmol/L (22-30); Chloride 108 mmol/L (98-107); Glucose 126 mg/dL (74-99); Non-African American GFR(CKD) 88 (>60 ml/min/1.73 sqM); Potassium 3.6 mmol/L (3.5-5.1); Sodium 138 mmol/L (137-145)
[2021-03-18] MEDS: IPRATROPIUM 0.5 MG/2.5 ML NEBU INHALATION SCH ×4 (08:26→20:47)
[2021-03-18] MEDS: ENOXAPARIN 40 MG/0.4 ML SYRINGE SQ SCH (08:46)
[2021-03-18] MEDS: PANTOPRAZOLE 40 MG/10 ML VIAL IV SCH (08:46)
[2021-03-18] MEDS: NICOTINE 14MG/24HR PATCH TRANSDERM SCH (08:46)
[2021-03-18] MEDS: CITALOPRAM HYDROBROMIDE 20 MG TAB PO SCH (08:47)
[2021-03-18] MEDS: ACETAMINOPHEN IV (For NPO) 1,000 MG in EMPTY BAG 1 BAG IVPB SCH ×3 (11:40→23:36)
[2021-03-18] MEDS: SODIUM CHLORIDE 0.9% 1,000 ML IV SCH ×2 (11:42→20:35)
--- NOTE | 2021-03-18 13:28 | P.PN ---
Subjective Progress Note Date: 03/18/21 CHIEF COMPLAINT: Gastric perforation HISTORY OF PRESENT ILLNESS: Patient is status post exploratory laparotomy, distal gastrectomy with gastrojejunostomy. Postop day #1. Patient reports that her pain is not controlled. She had not been receiving the IV Dilaudid. Patient complains of abdominal plain as well as a headache. Her blood pressure is elevated. Medicine service has added hydralazine IV. She also feels dry and thirsty. And complaints of feeling just weak all over. She denies any nausea or vomiting. Denies any flatus. Afebrile. WBC is up to 16.1 hemoglobin 13.6 platelets 478 PHYSICAL EXAM: VITAL SIGNS: Reviewed. GENERAL: Well-developed in no acute distress. HEENT: No sclera icterus. Extraocular movements grossly intact. Moist buccal mucosa. Head is atraumatic, normocephalic. ABDOMEN: Soft. Mild tenderness with palpation of the incision. Nondistended. Dressing small area of saturation towards the distal aspect of the dressing. NEUROLOGIC: Alert and oriented. Cranial nerves II through XII grossly intact. ASSESSMENT: 1. Perforated gastric ulcer with penetration into the lesser sac status post exploratory laparotomy, distal gastrectomy with gastrojejunostomy PLAN: -Keep patient nothing by mouth -Consult interventional radiology for PICC line placement for TPN -Consult dietitian to initiate TPN -Increase IV fluids 125 mL per hour -Adjust pain medication to Dilaudid 1 mg IV every 3 hours as needed and 0.5 mg IV every 3 as needed -IV Tylenol added -Continue IV Protonix -Continue antibiotics -DVT prophylaxis Lovenox Physician Television Script Writer note has been reviewed by physician. Signing provider agrees with the documented findings, assessment, and plan of care. Objective - Vital Signs Vital signs: Vital Signs Temp 98.1 F 03/18/21 08:00 Pulse 90 03/18/21 09:40 Resp 18 03/18/21 08:00 BP 160/55 03/18/21 09:40 Pulse Ox 99 03/18/21 08:27 Intake & Output 03/17/21 03/18/21 03/18/21 18:59 06:59 18:59 Intake Total 1100 300 Output Total 60 300 Balance 1040 0 Weight 43.091 kg Intake: IV 1100 300 Oral 0 Output: Urine 35 300 Estimated Blood Loss 25 Other: Voiding Method Toilet Indwelling Catheter Indwelling Catheter # Voids 1 # Bowel Movements 1 0 - Labs CBC & Chem 7: 03/18/21 04:34 03/18/21 04:34 Labs: Abnormal Lab Results - Last 24 Hours (Table) 03/18/21 03/18/21 Range/Units 04:34 04:34 WBC 16.1 H (3.8-10.6) k/uL Plt Count 478 H (150-450) k/uL Neutrophils # 14.6 H (1.3-7.7) k/uL Lymphocytes # 0.7 L (1.0-4.8) k/uL Chloride 108 H (98-107) mmol/L Glucose 126 H (74-99) mg/dL Microbiology - Last 24 Hours (Table) 03/17/21 05:45 Stool Culture - Preliminary Stool
[2021-03-18 15:00] LABS: INR 1.2 (<1.2); Prothrombin Time 12.6 sec (9.0-12.0)
--- NOTE | 2021-03-18 15:06 | IR ---
EXAMINATION TYPE: IR cvc insert >=5 years DATE OF EXAM: 03/18/2021 COMPARISON: NONE CLINICAL HISTORY: Perforated gastric ulcer Needs long-term intravenous access for therapy. PROCEDURE: Hand hygiene obtained with soap and water and alcohol-based hand rub. After informed consent, the skin overlying the left brachial vein was localized with ultrasound and n oted to be compressible and patent. An ultrasound image was obtained and submitted on the patient's chart. The overlying skin was prepped and draped and Lidocaine was used for local anesthesia. A ski n norberto was made with a scalpel. Access was gained to the vein under ultrasound guidance with a 21 ga uge needle and a 0.018 inch wire was advanced. Access site was dilated with Peel-Away sheath and cat heter tailored to the appropriate length and advanced such that the distal tip is at the cavoatrial j unction. Spot image was obtained verifying placement. Catheter was fixed to the skin and a sterile dressing was placed following hemostasis. Catheter was aspirated and flushed with saline. Patient w as discharged in stable condition without complication.Maximal barrier technique is utilized. Ultras ound image is documented on the chart. Ultrasound used with sterile technique. Fluoro time and fluoroscopic images submitted to document procedure: 9 intraoperative C-arm images do cument the procedure, 0.2 minutes fluoroscopy time IMPRESSION: STATUS POST ULTRASOUND AND FLUOROSCOPIC GUIDED PICC LINE PLACEMENT, READY FOR USE. THIS PROCEDURE WAS PERFORMED BY THE UNDERSIGNED.
[2021-03-18] MEDS: hydrALAZINE HCL 20 MG/ML 1 ML VIAL IVP PRN ×2 (15:39→20:34)
[2021-03-18] MEDS: HYDROmorphone 1 MG/ML 1 ML SYRINGE IVP PRN ×2 (15:39→20:36)
[2021-03-18 15:55] LABS: Magnesium 1.6 mg/dL (1.6-2.3); Phosphorus 3.5 mg/dL (2.5-4.5)
[2021-03-18] MEDS ORDERED: MVI, ADULT NO.4 WITH VIT K 10 ML, TRACE (CONC-1ML/DOSE) 1 ML in AMINO ACID 5%-D15W+LYTE... IV SCH ×3 (18:00)
[2021-03-18] MEDS: traZODone HCL 50 MG TAB PO SCH (19:53)
--- NOTE | 2021-03-19 00:01 | P.PN ---
Subjective Progress Note Date: 03/18/21 - Reason for Consult Hypertension management - History of Present Illness 85-year-old the a pleasant female came in with compensative diffuse abdominal pain sharp in nature along with the nausea has been going on for couple days, patient denied any diarrhea. Patient doesn't have any fever chills doesn't have any leukocytosis patient has a CT of the abdomen which showed some a proximal to the stomach because of which patient was admitted to general surgery and patient is presently on metronidazole and levofloxacin. Concern for peptic ulcer disease and perforation. Patient pain significant improved. Patient blood pressure is bit elevated today. Patient will undergo upper GI endoscopy tomorro w. 03/16/2021 Patient is seen in follow up this morning and continues with abdominal pain. General surgery as attending plans on EGD today and patient is currently NPO. Patient denies any nausea or vomiting. Patient reports to passing gas and having bowel movements and denies blood in the stool. Patient is continued on IV ceftriaxone and flagyl for concern for possible perforation. No new labs today and will repeat in the am. 03/17/2021 Patient is seen and evaluated in follow-up and continues with abdominal pain. Patient underwent EGD yesterday which shows a large ulcer with tunneling and is scheduled to undergo partial gastrectomy with Dr. Alexander. Plans were for surgery on Tuesday although patient is having large amounts of bloody stools and will be going to surgery today. Patient was made nothing by mouth. Risks versus benefits were discussed with the patient and patient is willing to proceed with intervention. Patient is an intermediate risk given her long extensive history of continued tobacco abuse although given the new findings and urgency with bleeding patient should go for surgical intervention today. Patient denies any chest pain or shortness of breath. Patient is afebrile. No reports of nausea or vomiting and patient is nothing by mouth for the procedure. 03/18/2021 Patient is seen in follow up this morning and is status post exploratory laparotomy, distal gastrectomy with gastrojejunostomy and is being closely monitored. Patient is lethargic but easily arousable. Surgical dressing is dry and intact and patient continues with abdominal pain and binder is in place. Patient also continues with NG tube and is NPO requesting ice chips. Dietitian also consulted and patient to receive PICC line to initiate TPN. WBC increased to 16.1 most likely reactive and will monitor closely. Patient is afebrile and denies chest pain or shortness of breath. Labs: WBC is 16.1, hemoglobin is 13.6, platelets are 476, sodium is 138, potassium is 3.6, BUN is 17, creatinine is 0.53, calcium is 8.7 Review of systems: CONSTITUTIONAL: No fever, no malaise, generalized fatigue. CARDIOVASCULAR: No chest pain, orthopnea, PND, no palpitations, no syncope. PULMONARY: No shortness of breath, no cough, no hemoptysis. GASTROINTESTINAL: As mentioned in HPI, no reports of gas or bowel movement NEUROLOGICAL: No headaches, no weakness, no numbness. GENITOURINARY: Denies any burning micturition, frequency, or urgency. MUSCULOSKELETAL/RHEUMATOLOGICAL: Denies any joint pain, swelling, or any muscle pain. Active Medications Albuterol/Ipratropium (Ipratropium-Albuterol 3 Ml Neb) 3 ml INHALATION RT-QID PRN PRN Reason: Shortness Of Breath Or Wheezing Citalopram Hydrobromide (Citalopram Hydrobromide 20 Mg Tab) 40 mg PO DAILY [facility] Last Admin: 03/18/21 08:47 Dose: 40 mg Documented by: Enoxaparin Sodium (Enoxaparin 40 Mg/0.4 Ml Syringe) 40 mg SQ DAILY [facility] Last Admin: 03/18/21 08:46 Dose: 40 mg Documented by: Hydralazine HCl (Hydralazine Hcl 20 Mg/Ml 1 Ml Vial) 10 mg IVP Q4HR PRN PRN Reason: Blood Pressure - High Last Admin: 03/18/21 20:34 Dose: 10 mg Documented by: Hydromorphone HCl (Hydromorphone 1 Mg/Ml 1 Ml Syringe) 1 mg IVP Q3HR PRN PRN Reason: Pain Last Admin: 03/18/21 20:36 Dose: 1 mg Documented by: Hydromorphone HCl (Hydromorphone 0.5 Mg/0.5 Ml Syringe) 0.5 mg IVP Q2HR PRN PRN Reason: Moderate Pain Ceftriaxone Sodium 2 gm/ (Sodium Chloride) 50 mls @ 100 mls/hr IVPB Q12HR [facility] Last Admin: 03/18/21 20:35 Dose: 100 mls/hr Documented by: Metronidazole 500 mg/ IV (Solution) 100 mls @ 100 mls/hr IVPB Q6HR [facility] Last Admin: 03/18/21 23:46 Dose: 100 mls/hr Documented by: Sodium Chloride (Saline 0.9%) 1,000 mls @ 125 mls/hr IV .Q8H [facility] Last Admin: 03/18/21 20:35 Dose: 125 mls/hr Documented by: Acetaminophen 1,000 mg/ IV (Solution) 100 mls @ 400 mls/hr IVPB Q6HR [facility] Stop: 03/19/21 06:14 Last Admin: 03/18/21 23:36 Dose: 400 mls/hr Documented by: Parenteral Vitamin Supplement 10 ml/ Zinc/Copper/Manganese/Selenium 1 ml/ Amino Ac/Electrol/Dextrose/Calcium 1,011 mls @ 30 mls/hr IV .Q24H [facility] Stop: 03/19/21 17:59 Last Admin: 03/18/21 18:24 Dose: 30 mls/hr Documented by: Amino Ac/Electrol/Dextrose/Calcium (Clinimix E 5%-D15% Solution) 1,000 mls @ 65 mls/hr IV .BY DURATION [facility] Parenteral Vitamin Supplement 10 ml/ Zinc/Copper/Manganese/Selenium 1 ml/ Amino Ac/Electrol/Dextrose/Calcium 1,011 mls @ 65 mls/hr IV .BY DURATION [facility] Ipratropium [place] (Ipratropium 0.5 Mg/2.5 Ml Nebu) 0.5 mg INHALATION RT-QID [facility] Last Admin: 03/18/21 20:47 Dose: Not Given Documented by: Naloxone HCl (Naloxone 0.4 Mg/Ml 1 Ml Vial) 0.2 mg IV Q2M PRN PRN Reason: Opioid Reversal Nicotine (Nicotine 14mg/24hr Patch) 1 patch TRANSDERM DAILY [facility] Last Admin: 03/18/21 08:46 Dose: 1 patch Documented by: Ondansetron HCl (Ondansetron 4 Mg/2 Ml Vial) 4 mg IVP Q8HR PRN PRN Reason: Nausea And Vomiting Last Admin: 03/14/21 22:15 Dose: 4 mg Documented by: Pantoprazole Sodium (Pantoprazole 40 Mg/10 Ml Vial) 40 mg IV DAILY [facility] Last Admin: 03/18/21 08:46 Dose: 40 mg Documented by: Sodium Chloride (Sodium Chloride 0.9% Flush 10 Ml Syringe) 10 ml IV Q4HR PRN PRN Reason: PICC Line Sodium Chloride (Sodium Chloride 0.9% Flush 10 Ml Syringe) 10 ml IV WEEKLY [facility] Sodium Chloride (Sodium Chloride 0.9% Flush 10 Ml Syringe) 20 ml IV Q4HR PRN PRN Reason: PICC Line Trazodone HCl (Trazodone Hcl 50 Mg Tab) 50 mg PO HS [facility] Last Admin: 03/18/21 19:53 Dose: Not Given Documented by: PHYSICAL EXAMINATION: GENERAL: The patient is alert and oriented x3, not in any acute distress. lethargic although easily arousable. Well developed, well nourished. HEENT: Pupils are round and equally reacting to light. EOMI. No scleral icterus. No conjunctival pallor. Normocephalic, atraumatic. No pharyngeal erythema. No thyromegaly. CARDIOVASCULAR: S1 and S2 present. No murmurs, rubs, or gallops. PULMONARY: Chest is clear to auscultation, no wheezing or crackles. ABDOMEN: Firm minimal diffuse tenderness, nondistended, normoactive bowel sounds. No palpable organomegaly. surgical dressing is dry and intact with minimal old blood noted since surgery. abdominal binder noted. MUSCULOSKELETAL: No joint swelling or deformity. EXTREMITIES: No cyanosis, clubbing, or pedal edema. NEUROLOGICAL: Gross neurological examination did not reveal any focal deficits. generalized weakness SKIN: No rashes. Assessment and plan: -Possible peptic ulcer disease with concerns of possible perforation: Continue present antibiotics rest of the management as per Gen. surgery. Patient is st atus post exploratory laparotomy, distal gastrectomy with gastrojejunostomy and continues with NPO and receiving picc line for TPN initiation -status post EGD showing large penetrating ulcer with large tunneling within the ulcer. Patient underwent distal gastrectomy yesterday -leukocytosis most likely reactive from recent surgery. 16.1 today. Will repeat labs. -Hypertension patient continued on IV hydralazine for now as patient is NPO -COPD without any acute exacerbation continue with albuterol inhalational treatments -Continued nicotine use: Counseling was provided -DVT prophylaxis: As per primary service -GI prophylaxis -Full code, no intubation Plan: Recommend to continue with current medication management. Continue IV hydration and will repeat am labs. Continue IV antibiotics. Patient is status post exploratory laparotomy, distal gastrectomy with gastrojejunostomy and continues to be NPO with NG tube and receiving PICC line for TPN initiation. MIld leukocytosis which is most likely reactive although will monitor closely. Patient is afebrile. Will repeat a.m. labs and continue to monitor closely. Will continue to follow along with surgery during hospitalization. Thank you for this consultation. Objective - Vital Signs Vital signs: Vital Signs Temp 98.1 F 03/18/21 08:00 Pulse 95 03/18/21 08:00 Resp 18 03/18/21 08:00 BP 193/80 03/18/21 08:00 Pulse Ox 99 03/18/21 08:27 Intake & Output 03/17/21 03/18/21 03/18/21 18:59 06:59 18:59 Intake Total 1100 300 Output Total 60 300 Balance 1040 0 Weight 43.091 kg Intake: IV 1100 300 Oral 0 Output: Urine 35 300 Estimated Blood Loss 25 Other: Voiding Method Toilet Indwelling Catheter # Voids 1 # Bowel Movements 1 0 - Labs CBC & Chem 7: 03/18/21 04:34 03/18/21 04:34 Labs: Abnormal Lab Results - Last 24 Hours (Table) 03/18/21 03/18/21 Range/Units 04:34 04:34 WBC 16.1 H (3.8-10.6) k/uL Plt Count 478 H (150-450) k/uL Neutrophils # 14.6 H (1.3-7.7) k/uL Lymphocytes # 0.7 L (1.0-4.8) k/uL Chloride 108 H (98-107) mmol/L Glucose 126 H (74-99) mg/dL Microbiology - Last 24 Hours (Table) 03/17/21 05:45 Stool Culture - Preliminary Stool
[2021-03-19] MEDS: HYDROmorphone 1 MG/ML 1 ML SYRINGE IVP PRN ×3 (01:43→10:54)
[2021-03-19 03:40] LABS: Triglycerides 57.3 mg/dL (0.00-149.00)
[2021-03-19] MEDS: SODIUM CHLORIDE 0.9% 1,000 ML IV SCH ×2 (05:19→10:58)
[2021-03-19] MEDS: metroNIDAZOLE-NS PMX 500 MG in SALINE 1 100ML.BAG IVPB SCH ×3 (05:20→18:27)
[2021-03-19 06:19] LABS: Ionized Calcium 5.2 mg/dL (4.5-5.3)
[2021-03-19] MEDS: ACETAMINOPHEN IV (For NPO) 1,000 MG in EMPTY BAG 1 BAG IVPB SCH (06:22)
[2021-03-19 06:47] LABS: ALT 15 U/L (4-34); AST 32 U/L (14-36); African American GFR (CKD) >90 (>60 ml/min/1.73 sqM); Albumin 2.6 g/dL (3.5-5.0); Alkaline Phosphatase 38 U/L (38-126); Anion Gap 4 mmol/L; Blood Urea Nitrogen 16 mg/dL (7-17); Calcium 8.6 mg/dL (8.4-10.2); Carbon Dioxide 25 mmol/L (22-30); Chloride 112 mmol/L (98-107); Globulin 2.7 g/dL; Glucose 172 mg/dL (74-99); Magnesium 1.8 mg/dL (1.6-2.3); Non-African American GFR(CKD) >90 (>60 ml/min/1.73 sqM); Phosphorus 2.3 mg/dL (2.5-4.5); Potassium 3.4 mmol/L (3.5-5.1); Sodium 141 mmol/L (137-145); Total Bilirubin 0.4 mg/dL (0.2-1.3); Total Protein 5.3 g/dL (6.3-8.2)
[2021-03-19] MEDS: PANTOPRAZOLE 40 MG/10 ML VIAL IV SCH (08:00)
[2021-03-19] MEDS: ENOXAPARIN 40 MG/0.4 ML SYRINGE SQ SCH (08:00)
[2021-03-19] MEDS: NICOTINE 14MG/24HR PATCH TRANSDERM SCH (08:00)
[2021-03-19] MEDS: CITALOPRAM HYDROBROMIDE 20 MG TAB PO SCH (08:00)
[2021-03-19] MEDS: IPRATROPIUM 0.5 MG/2.5 ML NEBU INHALATION SCH ×4 (08:17→19:50)
[2021-03-19 08:45] LABS: Basophils # (A) 0.1 k/uL (0-0.2); Basophils % (A) 0 %; Eosinophils # (A) 0.1 k/uL (0-0.7); Eosinophils % (A) 1 %; HCT 40.4 % (34.0-46.0); HGB 13.1 gm/dL (11.4-16.0); Lymphocytes # (A) 0.7 k/uL (1.0-4.8); Lymphocytes % (A) 5 %; MCH 31.5 pg (25.0-35.0); MCHC 32.4 g/dL (31.0-37.0); MCV 97.2 fL (80.0-100.0); Mean Platelet Volume 7.2; Monocytes # (A) 0.7 k/uL (0-1.0); Monocytes % (A) 4 %; Neutrophils # (A) 13.1 k/uL (1.3-7.7); Neutrophils % (A) 89 %; Platelet Count 467 k/uL (150-450); RBC 4.16 m/uL (3.80-5.40); RDW 12.7 % (11.5-15.5); WBC 14.7 k/uL (3.8-10.6)
[2021-03-19] MEDS: MAGNESIUM SULFATE-D5W PMX 1 GM in DEXTROSE/WATER 1 100ML.BAG IVPB SCH ×2 (08:52→10:13)
[2021-03-19] MEDS ORDERED: POTASSIUM CHLORIDE 20 MEQ in WATER FOR INJECTION 1 100ML.BAG IVPB STA (09:03)
[2021-03-19] MEDS: hydrALAZINE HCL 20 MG/ML 1 ML VIAL IVP PRN ×3 (10:16→20:53)
--- NOTE | 2021-03-19 10:36 | P.PN ---
Subjective Progress Note Date: 03/19/21 CHIEF COMPLAINT: Gastric perforation HISTORY OF PRESENT ILLNESS: Patient is status post exploratory laparotomy, distal gastrectomy with gastrojejunostomy. Postop day #2. Patient reports that her pain is better controlled today. She denies any nausea. She denies any flatus or bowel movement. Patient has NG tube in place. Minimal output. Patient has PICC line and has started TPN Afebrile. Elevated BP. Receiving IV hydralazine. WBC 14.7 potassium 3.4 magnesium 1.8 creatinine 0.45 PHYSICAL EXAM: VITAL SIGNS: Reviewed. GENERAL: Well-developed in no acute distress. HEENT: No sclera icterus. Extraocular movements grossly intact. Moist buccal mucosa. Head is atraumatic, normocephalic. ABDOMEN: Soft. Mild tenderness with palpation of the incision. Nondistended. Dressing small area of saturation towards the distal aspect of the dressing. Abdominal binder in place NEUROLOGIC: Alert and oriented. Cranial nerves II through XII grossly intact. ASSESSMENT: 1. Perforated gastric ulcer with penetration into the lesser sac status post exploratory laparotomy, distal gastrectomy with gastrojejunostomy PLAN: -Keep patient nothing by mouth -NG tube for decompression -Continue TPN for nutrition support -Continue IV fluids -Continue pain medication as needed -Continue IV Protonix -Continue antibiotics -Encourage patient to increase activity -Encourage patient to use incentive spirometer -DVT prophylaxis Lovenox Physician Wire [employer]ness Design Engineer note has been reviewed by physician. Signing provider agrees with the documented findings, assessment, and plan of care. Objective - Vital Signs Vital signs: Vital Signs Temp 98 F 03/19/21 08:00 Pulse 89 03/19/21 08:00 Resp 16 03/19/21 08:00 BP 174/80 03/19/21 08:00 Pulse Ox 92 L 03/19/21 08:00 Intake & Output 03/18/21 03/19/21 03/19/21 18:59 06:59 18:59 Intake Total 0 Output Total 600 500 Balance -600 -500 Weight 43.091 kg Intake: Oral 0 Output: Urine 600 500 Uretheral (Bautista) 300 Other: Voiding Method Indwelling Catheter Indwelling Catheter # Bowel Movements 0 - Labs CBC & Chem 7: 03/19/21 05:52 03/19/21 05:52 Labs: Abnormal Lab Results - Last 24 Hours (Table) 01/03/19/21 03/19/21 Range/Units 14:43 05:52 05:52 WBC 14.7 H (3.8-10.6) k/uL Plt Count 467 H (150-450) k/uL Neutrophils # 13.1 H (1.3-7.7) k/uL Lymphocytes # 0.7 L (1.0-4.8) k/uL PT 12.6 H (9.0-12.0) sec INR 1.2 H (<1.2) Potassium 3.4 L (3.5-5.1) mmol/L Chloride 112 H (98-107) mmol/L Creatinine 0.45 L (0.52-1.04) mg/dL Glucose 172 H (74-99) mg/dL Phosphorus 2.3 L (2.5-4.5) mg/dL Total Protein 5.3 L (6.3-8.2) g/dL Albumin 2.6 L (3.5-5.0) g/dL Microbiology - Last 24 Hours (Table) 03/17/21 05:45 Stool Culture - Preliminary Stool
[2021-03-19] MEDS ORDERED: WATER IV ONE ×2 (11:00)
[2021-03-19] MEDS ORDERED: POTASSIUM PHOSPHATE IV ONE ×2 (11:00)
[2021-03-19] MEDS ORDERED: DEXTROSE 5% IV ONE ×2 (11:00)
--- NOTE | 2021-03-19 15:25 | P.PN ---
Subjective Progress Note Date: 03/19/21 - Reason for Consult Hypertension management - History of Present Illness 85-year-old the a pleasant female came in with compensative diffuse abdominal pain sharp in nature along with the nausea has been going on for couple days, patient denied any diarrhea. Patient doesn't have any fever chills doesn't have any leukocytosis patient has a CT of the abdomen which showed some a proximal to the stomach because of which patient was admitted to general surgery and patient is presently on metronidazole and levofloxacin. Concern for peptic ulcer disease and perforation. Patient pain significant improved. Patient blood pressure is bit elevated today. Patient will undergo upper GI endoscopy tomorro w. 03/16/2021 Patient is seen in follow up this morning and continues with abdominal pain. General surgery as attending plans on EGD today and patient is currently NPO. Patient denies any nausea or vomiting. Patient reports to passing gas and having bowel movements and denies blood in the stool. Patient is continued on IV ceftriaxone and flagyl for concern for possible perforation. No new labs today and will repeat in the am. 03/17/2021 Patient is seen and evaluated in follow-up and continues with abdominal pain. Patient underwent EGD yesterday which shows a large ulcer with tunneling and is scheduled to undergo partial gastrectomy with Dr. Alexander. Plans were for surgery on Tuesday although patient is having large amounts of bloody stools and will be going to surgery today. Patient was made nothing by mouth. Risks versus benefits were discussed with the patient and patient is willing to proceed with intervention. Patient is an intermediate risk given her long extensive history of continued tobacco abuse although given the new findings and urgency with bleeding patient should go for surgical intervention today. Patient denies any chest pain or shortness of breath. Patient is afebrile. No reports of nausea or vomiting and patient is nothing by mouth for the procedure. 03/18/2021 Patient is seen in follow up this morning and is status post exploratory laparotomy, distal gastrectomy with gastrojejunostomy and is being closely monitored. Patient is lethargic but easily arousable. Surgical dressing is dry and intact and patient continues with abdominal pain and binder is in place. Patient also continues with NG tube and is NPO requesting ice chips. Dietitian also consulted and patient to receive PICC line to initiate TPN. WBC increased to 16.1 most likely reactive and will monitor closely. Patient is afebrile and denies chest pain or shortness of breath. 03/19/2021 Patient is seen in follow-up today continues to have some abdominal pain although denies any worsening pain. Patient is continued nothing by mouth with NG tube and is receiving TPN. Patient denies any chest pain or shortness of breath. Patient states she does have a cough which is most likely chronic because she is continued ongoing nicotine use. Patient continues on IV ceftriaxone along with Flagyl and will continue. Patient is afebrile. Patient continues to be hypertensive and currently nothing by mouth so will continue with IV hydralazine and monitor closely. Patients potassium mildly low at 3.4 and does have potassium in the TPN and fluids although will replace and repeat labs recommended. Labs: WBC is 14.7, hemoglobin is 13.1, platelets are 467, sodium is 141, potassium is 3.4, BUN 16, creatinine 0.45, calcium is 8.6, magnesium 1.8 Review of systems: CONSTITUTIONAL: No fever, no malaise, generalized fatigue. CARDIOVASCULAR: No chest pain, orthopnea, PND, no palpitations, no syncope. PULMONARY: No shortness of breath, no cough, no hemoptysis. GASTROINTESTINAL: As mentioned in HPI, no reports of gas or bowel movement NEUROLOGICAL: No headaches, no weakness, no numbness. GENITOURINARY: Denies any burning micturition, frequency, or urgency. MUSCULOSKELETAL/RHEUMATOLOGICAL: Denies any joint pain, swelling, or any muscle pain. Active Medications Albuterol/Ipratropium (Ipratropium-Albuterol 3 Ml Neb) 3 ml INHALATION RT-QID PRN PRN Reason: Shortness Of Breath Or Wheezing Citalopram Hydrobromide (Citalopram Hydrobromide 20 Mg Tab) 40 mg PO DAILY [facility] Last Admin: 03/19/21 08:00 Dose: Not Given Documented by: Enoxaparin Sodium (Enoxaparin 40 Mg/0.4 Ml Syringe) 40 mg SQ DAILY [facility] Last Admin: 03/19/21 08:00 Dose: 40 mg Documented by: Hydralazine HCl (Hydralazine Hcl 20 Mg/Ml 1 Ml Vial) 10 mg IVP Q4HR PRN PRN Reason: Blood Pressure - High Last Admin: 03/19/21 10:16 Dose: 10 mg Documented by: Hydromorphone HCl (Hydromorphone 1 Mg/Ml 1 Ml Syringe) 1 mg IVP Q3HR PRN PRN Reason: Pain Last Admin: 03/19/21 10:54 Dose: 1 mg Documented by: Hydromorphone HCl (Hydromorphone 0.5 Mg/0.5 Ml Syringe) 0.5 mg IVP Q2HR PRN PRN Reason: Moderate Pain Ceftriaxone Sodium 2 gm/ (Sodium Chloride) 50 mls @ 100 mls/hr IVPB Q12HR COUNT [facility] Last Admin: 03/19/21 08:09 Dose: 100 mls/hr Documented by: Metronidazole 500 mg/ IV (Solution) 100 mls @ 100 mls/hr IVPB Q6HR COUNT [facility] Last Admin: 03/19/21 12:46 Dose: 100 mls/hr Documented by: Sodium Chloride (Saline 0.9%) 1,000 mls @ 125 mls/hr IV .Q8H COUNT [facility]CLUDES [facility] Last Admin: 03/19/21 10:58 Dose: 125 mls/hr Documented by: Parenteral Vitamin Supplement 10 ml/ Zinc/Copper/Manganese/Selenium 1 ml/ Amino Ac/Electrol/Dextrose/Calcium 1,011 mls @ 30 mls/hr IV .Q24H COUNT [facility]CLUDES [facility] Stop: 03/19/21 17:59 Last Admin: 03/18/21 18:24 Dose: 30 mls/hr Documented by: Parenteral Vitamin Supplement 10 ml/ Zinc/Copper/Manganese/Selenium 1 ml/ Potassium Phosphate 15 mmol/ Sodium Acetate 30 meq/ Magnesium Sulfate 1 gm/ Calcium Gluconate 1 gm/ Amino Acids/Dextrose 1,043 mls @ 65 mls/hr IV .BY DURATION COUNT INCLUDES THE [facility] Potassium Phosphate 15 mmol/Sodium Acetate 30 meq/Magnesium Sulfate 1 gm/Calcium Gluconate 1 gm/ Amino Acids/Dextrose 1,032 mls @ 65 mls/hr IV .BY DURATION COUNT INCLUDES THE [facility] Fat Emulsion Intravenous 500 (ml/ IV Solution) 500 mls @ 42 mls/hr IV Q7D COUNT INCLUDES THE [facility] Ipratropium [place] (Ipratropium 0.5 Mg/2.5 Ml Nebu) 0.5 mg INHALATION RT-QID COUNT INCLUDES THE [facility] Last Admin: 03/19/21 11:43 Dose: Not Given Documented by: Naloxone HCl (Naloxone 0.4 Mg/Ml 1 Ml Vial) 0.2 mg IV Q2M PRN PRN Reason: Opioid Reversal Nicotine (Nicotine 14mg/24hr Patch) 1 patch TRANSDERM DAILY COUNT [facility]CLUD[facility] Last Admin: 03/19/21 08:00 Dose: 1 patch Documented by: Ondansetron HCl (Ondansetron 4 Mg/2 Ml Vial) 4 mg IVP Q8HR PRN PRN Reason: Nausea And Vomiting Last Admin: 03/14/21 22:15 Dose: 4 mg Documented by: Pantoprazole Sodium (Pantoprazole 40 Mg/10 Ml Vial) 40 mg IV DAILY COUNT [facility] Last Admin: 03/19/21 08:00 Dose: 40 mg Documented by: Sodium Chloride (Sodium Chloride 0.9% Flush 10 Ml Syringe) 10 ml IV Q4HR PRN PRN Reason: PICC Line Sodium Chloride (Sodium Chloride 0.9% Flush 10 Ml Syringe) 10 ml IV WEEKLY COUNT [facility]CLUDES [facility] Sodium Chloride (Sodium Chloride 0.9% Flush 10 Ml Syringe) 20 ml IV Q4HR PRN PRN Reason: PICC Line Trazodone HCl (Trazodone Hcl 50 Mg Tab) 50 mg PO HS COUNT [facility]CLUDES [facility] Last Admin: 03/18/21 19:53 Dose: Not Given Documented by: PHYSICAL EXAMINATION: GENERAL: The patient is alert and oriented x3, not in any acute distress. lethargic although easily arousable. Well developed, well nourished. HEENT: Pupils are round and equally reacting to light. EOMI. No scleral icterus. No conjunctival pallor. Normocephalic, atraumatic. No pharyngeal erythema. No thyromegaly. CARDIOVASCULAR: S1 and S2 present. No murmurs, rubs, or gallops. PULMONARY: Chest is clear to auscultation, no wheezing or crackles. ABDOMEN: Soft, minimal diffuse tenderness, nondistended, sluggish bowel sounds. No palpable organomegaly. surgical dressing is dry and intact with minimal old blood noted since surgery. abdominal binder noted. MUSCULOSKELETAL: No joint swelling or deformity. EXTREMITIES: No cyanosis, clubbing, or pedal edema. NEUROLOGICAL: Gross neurological examination did not reveal any focal deficits. generalized weakness SKIN: No rashes. Assessment and plan: -Possible peptic ulcer disease with concerns of possible perforation: Continue present antibiotics rest of the management as per Gen. surgery. Patient is status post exploratory laparotomy, distal gastrectomy with gastrojejunostomy and continues with NPO and received picc line for TPN and tolerating thus far -status post EGD showing large penetrating ulcer with large tunneling within the ulcer. Patient underwent distal gastrectomy yesterday -leukocytosis most likely reactive from recent surgery. Trending down and is currently 14.7 and will monitor and repeat labs -Hypertension patient continued on IV hydralazine for now as patient is NPO -COPD without any acute exacerbation continue with albuterol inhalational treatments -Continued nicotine use: Counseling was provided -DVT prophylaxis: As per primary service -GI prophylaxis -Full code, no intubation Plan: Recommend to continue with current medication management. Continue IV hydration and will repeat am labs. Continue IV antibiotics. Patient is status post exploratory laparotomy, distal gastrectomy with gastrojejunostomy and continues to be NPO with NG tube and has received a PICC line for TPN. MIld leukocytosis which is most likely reactive although will monitor closely. WBC trending down and will continue to monitor. Patient is afebrile. Will repeat a.m. labs and continue to monitor closely. Will continue to follow along with surgery during hospitalization. Thank you for this consultation. Objective - Vital Signs Vital signs: Vital Signs Temp 98 F 03/19/21 08:00 Pulse 89 03/19/21 08:00 Resp 16 03/19/21 08:00 BP 174/80 03/19/21 08:00 Pulse Ox 92 L 03/19/21 08:00 Intake & Output 03/18/21 03/19/21 03/19/21 18:59 06:59 18:59 Intake Total 0 Output Total 600 500 Balance -600 -500 Weight 43.091 kg Intake: Oral 0 Output: Urine 600 500 Uretheral (Bautista) 300 Other: Voiding Method Indwelling Catheter Indwelling Catheter # Bowel Movements 0 - Labs CBC & Chem 7: 03/19/21 05:52 03/19/21 05:52 Labs: Abnormal Lab Results - Last 24 Hours (Table) 03/18/21 03/19/21 03/19/21 Range/Units 14:43 05:52 05:52 WBC 14.7 H (3.8-10.6) k/uL Plt Count 467 H (150-450) k/uL Neutrophils # 13.1 H (1.3-7.7) k/uL Lymphocytes # 0.7 L (1.0-4.8) k/uL PT 12.6 H (9.0-12.0) sec INR 1.2 H (<1.2) Potassium 3.4 L (3.5-5.1) mmol/L Chloride 112 H (98-107) mmol/L Creatinine 0.45 L (0.52-1.04) mg/dL Glucose 172 H (74-99) mg/dL Phosphorus 2.3 L (2.5-4.5) mg/dL Total Protein 5.3 L (6.3-8.2) g/dL Albumin 2.6 L (3.5-5.0) g/dL Microbiology - Last 24 Hours (Table) 03/17/21 05:45 Stool Culture - Preliminary Stool
[2021-03-19] MEDS: HYDROmorphone 0.5 MG/0.5 ML SYRINGE IVP PRN ×2 (15:34→21:05)
[2021-03-19] MEDS ORDERED: FAT EMULSION 20% 500 ML in EMPTY BAG 1 BAG IV SCH (18:00)
[2021-03-19] MEDS: traZODone HCL 50 MG TAB PO SCH (21:03)
[2021-03-20] MEDS: SODIUM CHLORIDE 0.9% 1,000 ML IV SCH ×2 (00:12→11:10)
[2021-03-20] MEDS: metroNIDAZOLE-NS PMX 500 MG in SALINE 1 100ML.BAG IVPB SCH ×4 (00:15→17:11)
[2021-03-20] MEDS: HYDROmorphone 1 MG/ML 1 ML SYRINGE IVP PRN ×2 (00:16→09:17)
[2021-03-20] MEDS: hydrALAZINE HCL 20 MG/ML 1 ML VIAL IVP PRN ×3 (02:49→12:36)
[2021-03-20] MEDS: ONDANSETRON 4 MG/2 ML VIAL IVP PRN (05:20)
[2021-03-20 06:13] LABS: African American GFR (CKD) >90 (>60 ml/min/1.73 sqM); Anion Gap 4 mmol/L; Blood Urea Nitrogen 18 mg/dL (7-17); Calcium 8.6 mg/dL (8.4-10.2); Carbon Dioxide 24 mmol/L (22-30); Chloride 113 mmol/L (98-107); Glucose 163 mg/dL (74-99); Non-African American GFR(CKD) >90 (>60 ml/min/1.73 sqM); Potassium 3.7 mmol/L (3.5-5.1); Sodium 141 mmol/L (137-145)
[2021-03-20 06:51] LABS: Phosphorus 1.8 mg/dL (2.5-4.5)
[2021-03-20] MEDS: IPRATROPIUM 0.5 MG/2.5 ML NEBU INHALATION SCH ×4 (07:39→19:52)
[2021-03-20] MEDS: ENOXAPARIN 40 MG/0.4 ML SYRINGE SQ SCH (07:52)
[2021-03-20] MEDS: NICOTINE 14MG/24HR PATCH TRANSDERM SCH (07:52)
[2021-03-20] MEDS: PANTOPRAZOLE 40 MG/10 ML VIAL IV SCH (07:52)
[2021-03-20] MEDS: CITALOPRAM HYDROBROMIDE 20 MG TAB PO SCH (07:53)
[2021-03-20 09:34] LABS: Basophils % (A) 0 %; Eosinophils # (A) 0.1 k/uL (0-0.7); Eosinophils % (A) 1 %; HGB 13.9 gm/dL (11.4-16.0); Lymphocytes # (A) 0.9 k/uL (1.0-4.8); Lymphocytes % (A) 5 %; MCH 30.7 pg (25.0-35.0); MCHC 32.3 g/dL (31.0-37.0); MCV 95.2 fL (80.0-100.0); Mean Platelet Volume 7.1; Monocytes # (A) 0.4 k/uL (0-1.0); Monocytes % (A) 3 %; Neutrophils # (A) 15.7 k/uL (1.3-7.7); Neutrophils % (A) 91 %; Platelet Count 417 k/uL (150-450); RBC 4.51 m/uL (3.80-5.40); RDW 13.5 % (11.5-15.5); WBC 17.3 k/uL (3.8-10.6)
[2021-03-20] MEDS: POTASSIUM PHOSPHATE 10 MMOL in SODIUM CHLORIDE 0.9% 250 ML IV SCH ×2 (11:17→13:27)
--- NOTE | 2021-03-20 14:12 | P.PN ---
Subjective Progress Note Date: 03/20/21 CHIEF COMPLAINT: Gastric perforation HISTORY OF PRESENT ILLNESS: Patient is status post exploratory laparotomy, distal gastrectomy with gastrojejunostomy. Postop day #3. Patient is complaining of abdominal pain again this morning. It appears that she is going for long stretches without pain medications during the night. She will be receiving her IV pain medication this morning. She is complaining of headache. Her blood pressures have been elevated. She does have some mild swelling in both legs. Denies any shortness of breath. Denies any flatus. Doesn't some nausea no vomiting. NG tube and Bautista catheter were discontinued yesterday. Patient reports urinating without difficulty. Afebrile WBC 14.7 up to 17.3 hemoglobin 13.9 platelets 417 sodium 141 potassium 3.4 up to 3.7 creatinine 0.45 [address] Santos called patient's daughter and answered all of her questions. Patient seen and examined with Dr. santos PHYSICAL EXAM: VITAL SIGNS: Reviewed. GENERAL: Well-developed in no acute distress. HEENT: No sclera icterus. Extraocular movements grossly intact. Moist buccal mucosa. Head is atraumatic, normocephalic. ABDOMEN: Soft. Mild tenderness with palpation of the incision. Mildly distended. Abdominal incision with dry blood noted otherwise clean dry and intact. Has abdominal binder. NEUROLOGIC: Alert and oriented. Cranial nerves II through XII grossly intact. ASSESSMENT: 1. Perforated gastric ulcer with penetration into the lesser sac status post exploratory laparotomy, distal gastrectomy with gastrojejunostomy 2. Hypertension 3. Leukocytosis PLAN: -Advance diet to clear liquids -Okay for by mouth medications -Continue TPN for nutrition support -Continue IV fluids -Continue pain medication as needed -JODI hose ordered for lower extremity edema and keep legs elevated -Hypertension management per medicine service. Patient's pain may also be contributing to her high blood pressures. -Continue IV Protonix -Continue antibiotics -Encourage patient to increase activity -Encourage patient to use incentive spirometer -DVT prophylaxis Lovenox Physician Social Service Director note has been reviewed by physician. Signing provider agrees with the documented findings, assessment, and plan of care. Objective - Vital Signs Vital signs: Vital Signs Temp 98.0 F 03/20/21 07:53 Pulse 97 03/20/21 07:53 Resp 18 03/20/21 07:53 BP 181/79 03/20/21 07:53 Pulse Ox 92 L 03/20/21 07:53 Intake & Output 03/19/21 03/20/21 03/20/21 18:59 06:59 18:59 Output Total 350 Balance -350 Output: Urine 350 Uretheral (Bautista) 350 Other: Voiding Method Indwelling Catheter # Voids 3 - Labs CBC & Chem 7: 03/20/21 09:00 03/20/21 05:24 Labs: Abnormal Lab Results - Last 24 Hours (Table) 03/20/21 03/20/21 03/20/21 Range/Units 05:23 05:24 09:00 WBC 17.3 H (3.8-10.6) k/uL Neutrophils # 15.7 H (1.3-7.7) k/uL Lymphocytes # 0.9 L (1.0-4.8) k/uL Chloride 113 H (98-107) mmol/L BUN 18 H (7-17) mg/dL Creatinine 0.45 L (0.52-1.04) mg/dL Glucose 163 H (74-99) mg/dL Phosphorus 1.8 L (2.5-4.5) mg/dL Microbiology - Last 24 Hours (Table) 03/17/21 05:45 Stool Culture - Final Stool
[2021-03-20] MEDS: amLODIPine 10 MG TAB PO SCH (14:45)
[2021-03-20] MEDS ORDERED: LORazepam 2 MG/ML INJ IV PRN (17:34)
[2021-03-20] MEDS: LORazepam 2 MG/ML INJ IV PRN (17:42)
[2021-03-20] MEDS: traZODone HCL 50 MG TAB PO SCH (20:58)
--- NOTE | 2021-03-20 22:41 | P.PN ---
Subjective Progress Note Date: 03/20/21 - Reason for Consult Hypertension management - History of Present Illness 85-year-old the a pleasant female came in with compensative diffuse abdominal pain sharp in nature along with the nausea has been going on for couple days, patient denied any diarrhea. Patient doesn't have any fever chills doesn't have any leukocytosis patient has a CT of the abdomen which showed some a proximal to the stomach because of which patient was admitted to general surgery and patient is presently on metronidazole and levofloxacin. Concern for peptic ulcer disease and perforation. Patient pain significant improved. Patient blood pressure is bit elevated today. Patient will undergo upper GI endoscopy tomorro w. 03/16/2021 Patient is seen in follow up this morning and continues with abdominal pain. General surgery as attending plans on EGD today and patient is currently NPO. Patient denies any nausea or vomiting. Patient reports to passing gas and having bowel movements and denies blood in the stool. Patient is continued on IV ceftriaxone and flagyl for concern for possible perforation. No new labs today and will repeat in the am. 03/17/2021 Patient is seen and evaluated in follow-up and continues with abdominal pain. Patient underwent EGD yesterday which shows a large ulcer with tunneling and is scheduled to undergo partial gastrectomy with Dr. Alexander. Plans were for surgery on Tuesday although patient is having large amounts of bloody stools and will be going to surgery today. Patient was made nothing by mouth. Risks versus benefits were discussed with the patient and patient is willing to proceed with intervention. Patient is an intermediate risk given her long extensive history of continued tobacco abuse although given the new findings and urgency with bleeding patient should go for surgical intervention today. Patient denies any chest pain or shortness of breath. Patient is afebrile. No reports of nausea or vomiting and patient is nothing by mouth for the procedure. 03/18/2021 Patient is seen in follow up this morning and is status post exploratory laparotomy, distal gastrectomy with gastrojejunostomy and is being closely monitored. Patient is lethargic but easily arousable. Surgical dressing is dry and intact and patient continues with abdominal pain and binder is in place. Patient also continues with NG tube and is NPO requesting ice chips. Dietitian also consulted and patient to receive PICC line to initiate TPN. WBC increased to 16.1 most likely reactive and will monitor closely. Patient is afebrile and denies chest pain or shortness of breath. 03/19/2021 Patient is seen in follow-up today continues to have some abdominal pain although denies any worsening pain. Patient is continued nothing by mouth with NG tube and is receiving TPN. Patient denies any chest pain or shortness of breath. Patient states she does have a cough which is most likely chronic because she is continued ongoing nicotine use. Patient continues on IV ceftriaxone along with Flagyl and will continue. Patient is afebrile. Patient continues to be hypertensive and currently nothing by mouth so will continue with IV hydralazine and monitor closely. Patients potassium mildly low at 3.4 and does have potassium in the TPN and fluids although will replace and repeat labs recommended. 03/20/2021 Patient is seen this morning in follow up today and has had NG tube removed. Patient is more awake and alert today and continues with periods of confusion at times. Per RN, daughter reported to her that patient does drink almost daily and feels she is actively withdrawing. Will add CIWA and monitor closely. Patient also continues with dilaudid and recommend caution against excessive use. Patient denies any chest pain or shortness of breath and is currenly sitting up at the side of the bed on room air. IS at the bedside and encouraged the patient to continue using 10 times every hour while awake. No bowel sounds noted on exam and patient denies passing gas or bowel activity. Patient is being started on clear liquid diet and continues on TPN. Labs: WBC is 17.3, hemoglobin is 13.9, platelets are 417 Review of systems: CONSTITUTIONAL: No fever, no malaise, generalized fatigue. CARDIOVASCULAR: No chest pain, orthopnea, PND, no palpitations, no syncope. PULMONARY: No shortness of breath, no cough, no hemoptysis. GASTROINTESTINAL: As mentioned in HPI, no reports of gas or bowel movement NEUROLOGICAL: No headaches, no weakness, no numbness. GENITOURINARY: Denies any burning micturition, frequency, or urgency. MUSCULOSKELETAL/RHEUMATOLOGICAL: Denies any joint pain, swelling, or any muscle pain. Active Medications Albuterol/Ipratropium (Ipratropium-Albuterol 3 Ml Neb) 3 ml INHALATION RT-QID PRN PRN Reason: Shortness Of Breath Or Wheezing Amlodipine Besylate (Amlodipine 10 Mg Tab) 10 mg PO DAILY [facility] Citalopram Hydrobromide (Citalopram Hydrobromide 20 Mg Tab) 40 mg PO DAILY [facility] Last Admin: 03/20/21 07:53 Dose: 40 mg Documented by: Enoxaparin Sodium (Enoxaparin 40 Mg/0.4 Ml Syringe) 40 mg SQ DAILY [facility] Last Admin: 03/20/21 07:52 Dose: 40 mg Documented by: Hydralazine HCl (Hydralazine Hcl 20 Mg/Ml 1 Ml Vial) 10 mg IVP Q4HR PRN PRN Reason: Blood Pressure - High Last Admin: 03/20/21 12:36 Dose: 10 mg Documented by: Hydromorphone HCl (Hydromorphone 1 Mg/Ml 1 Ml Syringe) 1 mg IVP Q3HR PRN PRN Reason: Pain Last Admin: 03/20/21 09:17 Dose: 1 mg Documented by: Hydromorphone HCl (Hydromorphone 0.5 Mg/0.5 Ml Syringe) 0.5 mg IVP Q2HR PRN PRN Reason: Moderate Pain Last Admin: 03/19/21 21:05 Dose: 0.5 mg Documented by: Ceftriaxone Sodium 2 gm/ (Sodium Chloride) 50 mls @ 100 mls/hr IVPB Q12HR [facility] Last Admin: 03/20/21 07:52 Dose: 100 mls/hr Documented by: Metronidazole 500 mg/ IV (Solution) 100 mls @ 100 mls/hr IVPB Q6HR [facility] Last Admin: 03/20/21 11:18 Dose: 100 mls/hr Documented by: Parenteral Vitamin Supplement 10 ml/ Zinc/Copper/Manganese/Selenium 1 ml/ Potassium Phosphate 15 mmol/ Sodium Acetate 30 meq/ Magnesium Sulfate 1 gm/ Calcium Gluconate 1 gm/ Amino Acids/Dextrose 1,043 mls @ 65 mls/hr IV .BY DURATION [facility] Potassium Phosphate 15 mmol/Sodium Acetate 30 meq/Magnesium Sulfate 1 gm/Calcium Gluconate 1 gm/ Amino Acids/Dextrose 1,032 mls @ 65 mls/hr IV .BY DURATION [facility] Last Admin: 03/20/21 11:17 Dose: 65 mls/hr Documented by: Fat Emulsion Intravenous 500 (ml/ IV Solution) 500 mls @ 42 mls/hr IV Q7D [facility] Last Admin: 03/19/21 18:11 Dose: 42 mls/hr Documented by: Ipratropium [place] (Ipratropium 0.5 Mg/2.5 Ml Nebu) 0.5 mg INHALATION RT-QID [facility] Last Admin: 03/20/21 12:57 Dose: Not Given Documented by: Naloxone HCl (Naloxone 0.4 Mg/Ml 1 Ml Vial) 0.2 mg IV Q2M PRN PRN Reason: Opioid Reversal Nicotine (Nicotine 14mg/24hr Patch) 1 patch TRANSDERM DAILY [facility] Last Admin: 03/20/21 07:52 Dose: 1 patch Documented by: Ondansetron HCl (Ondansetron 4 Mg/2 Ml Vial) 4 mg IVP Q8HR PRN PRN Reason: Nausea And Vomiting Last Admin: 03/20/21 05:20 Dose: 4 mg Documented by: Pantoprazole Sodium (Pantoprazole 40 Mg/10 Ml Vial) 40 mg IV DAILY [facility] Last Admin: 03/20/21 07:52 Dose: 40 mg Documented by: Sodium Chloride (Sodium Chloride 0.9% Flush 10 Ml Syringe) 10 ml IV Q4HR PRN PRN Reason: PICC Line Sodium Chloride (Sodium Chloride 0.9% Flush 10 Ml Syringe) 10 ml IV WEEKLY [facility] Sodium Chloride (Sodium Chloride 0.9% Flush 10 Ml Syringe) 20 ml IV Q4HR PRN PRN Reason: PICC Line Trazodone HCl (Trazodone Hcl 50 Mg Tab) 50 mg PO HS [facility] Last Admin: 03/19/21 21:03 Dose: Not Given Documented by: PHYSICAL EXAMINATION: GENERAL: The patient is alert and oriented x3, not in any acute distress. much more awake today and sitting up at the side of the bed. Thin build, cachetic HEENT: Pupils are round and equally reacting to light. EOMI. No scleral icterus. No conjunctival pallor. Normocephalic, atraumatic. No pharyngeal erythema. No thyromegaly. CARDIOVASCULAR: S1 and S2 present. No murmurs, rubs, or gallops. PULMONARY: Chest is clear to auscultation, no wheezing or crackles. ABDOMEN: Soft, minimal diffuse tenderness, nondistended, absent bowel sounds. No palpable organomegaly. surgical dressing is dry and intact with minimal old blood noted since surgery. abdominal binder noted. MUSCULOSKELETAL: No joint swelling or deformity. EXTREMITIES: No cyanosis, clubbing, or pedal edema. NEUROLOGICAL: Gross neurological examination did not reveal any focal deficits. generalized weakness SKIN: No rashes. Assessment and plan: -Possible peptic ulcer disease with concerns of possible perforation: Continue present antibiotics rest of the management as per Gen. surgery. Patient is status post exploratory laparotomy, distal gastrectomy with gastrojejunostomy and continues with TPN and tolerating thus far, being started on CLD and NG tube removed -status post EGD showing large penetrating ulcer with large tunneling within the ulcer. Patient underwent distal gastrectomy yesterday -possible acute alcohol withdrawal with some mild tremons noted. Was just informed today from family that patient is a heavy daily drinker and possibly withdrawing. Will start CIWA protocol and monitor closely. -leukocytosis most likely reactive from recent surgery. will monitor and repeat labs -Hypertension, can now have oral and will add norvasc -COPD without any acute exacerbation continue with albuterol inhalational treatments -Continued nicotine use: Counseling was provided -moderate protein calorie malnutrition with a bmi of 17.9 -DVT prophylaxis: As per primary service -GI prophylaxis -Full code, no intubation Plan: Recommend to continue with current medication management. Continue IV hydration although patient was receiving a large amount of fluids and blood pressure continues to be elevated. Will add norvasc and continue IV hydralazine as needed. Will decrease fluid dosing. Family reported today that patient drinks daily and possibly withdrawing and will add CIWA and monitor closely. WBC continues to be elevated and will repeat am labs. Continue IV antibiotics. Patient is status post exploratory laparotomy, distal gastrectomy with gastrojejunostomy and being started on clear liquids and NG tube was removed. Continue TPN for now per surgery. Encouraged increased activity as tolerated. Patient is afebrile. Will repeat a.m. labs and continue to monitor closely. Will continue to follow along with surgery during hospitalization. Thank you for this consultation. Objective - Vital Signs Vital signs: Vital Signs Temp 98.0 F 03/20/21 07:53 Pulse 97 03/20/21 07:53 Resp 18 03/20/21 07:53 BP 181/79 03/20/21 07:53 Pulse Ox 92 L 03/20/21 07:53 Intake & Output 03/19/21 03/20/21 03/20/21 18:59 06:59 18:59 Output Total 350 Balance -350 Output: Urine 350 Uretheral (Bautista) 350 Other: Voiding Method Indwelling Catheter # Voids 3 - Labs CBC & Chem 7: 03/20/21 09:00 03/20/21 05:24 Labs: Abnormal Lab Results - Last 24 Hours (Table) 03/20/21 03/20/21 03/20/21 Range/Units 05:23 05:24 09:00 WBC 17.3 H (3.8-10.6) k/uL Neutrophils # 15.7 H (1.3-7.7) k/uL Lymphocytes # 0.9 L (1.0-4.8) k/uL Chloride 113 H (98-107) mmol/L BUN 18 H (7-17) mg/dL Creatinine 0.45 L (0.52-1.04) mg/dL Glucose 163 H (74-99) mg/dL Phosphorus 1.8 L (2.5-4.5) mg/dL Microbiology - Last 24 Hours (Table) 03/17/21 05:45 Stool Culture - Final Stool
[2021-03-21] MEDS: metroNIDAZOLE-NS PMX 500 MG in SALINE 1 100ML.BAG IVPB SCH ×4 (00:43→17:57)
[2021-03-21] MEDS: HYDROmorphone 1 MG/ML 1 ML SYRINGE IVP PRN ×3 (01:39→19:42)
[2021-03-21] MEDS: hydrALAZINE HCL 20 MG/ML 1 ML VIAL IVP PRN ×4 (04:50→19:41)
[2021-03-21 05:48] LABS: Basophils % (A) 0 %; Eosinophils # (A) 0.1 k/uL (0-0.7); Eosinophils % (A) 1 %; HCT 36.5 % (34.0-46.0); HGB 12.1 gm/dL (11.4-16.0); Lymphocytes # (A) 0.8 k/uL (1.0-4.8); Lymphocytes % (A) 6 %; MCH 31.8 pg (25.0-35.0); MCHC 33.2 g/dL (31.0-37.0); MCV 95.6 fL (80.0-100.0); Monocytes # (A) 0.4 k/uL (0-1.0); Monocytes % (A) 3 %; Neutrophils # (A) 11.8 k/uL (1.3-7.7); Neutrophils % (A) 90 %; Platelet Count 385 k/uL (150-450); RBC 3.82 m/uL (3.80-5.40); RDW 12.9 % (11.5-15.5); WBC 13.1 k/uL (3.8-10.6)
[2021-03-21 06:01] LABS: African American GFR (CKD) >90 (>60 ml/min/1.73 sqM); Anion Gap 2 mmol/L; Blood Urea Nitrogen 24 mg/dL (7-17); Calcium 8.5 mg/dL (8.4-10.2); Carbon Dioxide 28 mmol/L (22-30); Chloride 111 mmol/L (98-107); Glucose 138 mg/dL (74-99); Non-African American GFR(CKD) >90 (>60 ml/min/1.73 sqM); Potassium 3.5 mmol/L (3.5-5.1); Sodium 141 mmol/L (137-145)
[2021-03-21] MEDS: ENOXAPARIN 40 MG/0.4 ML SYRINGE SQ SCH (08:10)
[2021-03-21] MEDS: NICOTINE 14MG/24HR PATCH TRANSDERM SCH (08:10)
[2021-03-21] MEDS: CITALOPRAM HYDROBROMIDE 20 MG TAB PO SCH (08:11)
[2021-03-21] MEDS: amLODIPine 10 MG TAB PO SCH (08:11)
[2021-03-21] MEDS: IPRATROPIUM 0.5 MG/2.5 ML NEBU INHALATION SCH ×4 (08:12→20:15)
[2021-03-21 09:13] LABS: Phosphorus 2.3 mg/dL (2.4-5.1)
[2021-03-21] MEDS: PANTOPRAZOLE 40 MG/10 ML VIAL IV SCH (10:38)
[2021-03-21] MEDS: POTASSIUM PHOSPHATE IV SCH ×4 (12:23→15:01)
[2021-03-21] MEDS: WATER IV SCH ×4 (12:23→15:01)
[2021-03-21] MEDS: DEXTROSE 5% IV SCH ×4 (12:23→15:01)
--- NOTE | 2021-03-21 13:51 | P.PN ---
Subjective Progress Note Date: 03/21/21 CHIEF COMPLAINT: Perforated gastric ulcer HISTORY OF PRESENT ILLNESS: The patient is a 85-year-old female status post partial gastrectomy with gastrojejunostomy, 03/17/2021. She is on clear liquid diet. "I want to try some more food." She is on TPN. ROS: No fevers or chills. No new chest pain. PHYSICAL EXAM: VITAL SIGNS: Reviewed CONSTITUTIONAL: Well developed and in no acute distress. EYES: Conjuctivae without sclera icterus. Extraocular movements grossly intact. HEAD, EARS, NOSE, THROAT: Moist buccal mucosa. Head is atraumatic, normocephalic. No nasal drainage. RESPIRATORY: Non-labored respirations and equal bilateral excursions. CARDIOVASCULAR: Palpable 2+ radial pulses. ABDOMEN: Dressing clean dry and intact. MUSCULOSKELETAL: No gross deformity of the lower extremities noted. No clubbing. No cyanosis. SKIN: Good skin turgor. Well perfused. NEUROLOGIC: Cranial nerves II through XII grossly intact. No focal or lateralizing signs. PSYCH: Alert to person. CLINICAL LABS: Reviewed. WBC improving from over 17,000 to 13,000 leukocytosis. Hemoglobin normal 12.1. ASSESSMENT: 1. Perforated gastric ulcer PLAN: 1. Continue antibiotics 2. Monitor hemoglobin 3. Will advance diet. Objective - Vital Signs Vital signs: Vital Signs Temp 98.3 F 03/21/21 08:00 Pulse 107 H 03/21/21 08:00 Resp 18 03/21/21 08:00 BP 171/63 03/21/21 08:00 Pulse Ox 91 L 03/21/21 08:00 Intake & Output 03/20/21 03/21/21 03/21/21 18:59 06:59 18:59 Intake Total 934.917 480 Balance 934.917 480 Weight 43.091 kg Intake: Intake, IV Titration 934.917 Amount Potassium Phosphate 15 934.917 mmol Sodium Acetate 30 meq Magnesium Sulfate gm 1 gm Calcium Gluconate 1 gm In Amino Acid 5%-D15w 1,000 ml @ 65 mls/hr IV . BY DURATION [facility] Rx#: [id number] Oral 480 Other: Voiding Method Toilet # Voids 2 1 - Labs CBC & Chem 7: 03/21/21 05:28 03/21/21 05:28 Labs: Abnormal Lab Results - Last 24 Hours (Table) 03/21/21 03/21/21 03/21/21 Range/Units 05:28 05:28 05:28 WBC 13.1 H (3.8-10.6) k/uL Neutrophils # 11.8 H (1.3-7.7) k/uL Lymphocytes # 0.8 L (1.0-4.8) k/uL Chloride 111 H (98-107) mmol/L BUN 24 H (7-17) mg/dL Creatinine 0.43 L (0.52-1.04) mg/dL Glucose 138 H (74-99) mg/dL Phosphorus 2.3 L (2.4-5.1) mg/dL Microbiology - Last 24 Hours (Table) 03/17/21 05:45 Stool Culture - Final Stool
[2021-03-21] MEDS: HYDROmorphone 0.5 MG/0.5 ML SYRINGE IVP PRN (14:59)
[2021-03-21] MEDS: LORazepam 0.5 MG TAB PO PRN (16:32)
[2021-03-21] MEDS: traZODone HCL 50 MG TAB PO SCH (19:41)
[2021-03-22] MEDS: metroNIDAZOLE-NS PMX 500 MG in SALINE 1 100ML.BAG IVPB SCH ×4 (00:08→17:59)
[2021-03-22] MEDS: hydrALAZINE HCL 20 MG/ML 1 ML VIAL IVP PRN ×3 (02:14→19:36)
[2021-03-22] MEDS: LORazepam 2 MG/ML INJ IV PRN ×2 (02:24→12:45)
[2021-03-22 06:52] LABS: ALT 18 U/L (4-34); AST 36 U/L (14-36); African American GFR (CKD) >90 (>60 ml/min/1.73 sqM); Albumin 2.7 g/dL (3.5-5.0); Alkaline Phosphatase 43 U/L (38-126); Anion Gap 4 mmol/L; Blood Urea Nitrogen 28 mg/dL (7-17); Calcium 8.9 mg/dL (8.4-10.2); Carbon Dioxide 25 mmol/L (22-30); Chloride 108 mmol/L (98-107); Globulin 2.7 g/dL; Glucose 137 mg/dL (74-99); Non-African American GFR(CKD) >90 (>60 ml/min/1.73 sqM); Phosphorus 3.4 mg/dL (2.5-4.5); Potassium 3.9 mmol/L (3.5-5.1); Sodium 137 mmol/L (137-145); Total Bilirubin 0.3 mg/dL (0.2-1.3); Total Protein 5.4 g/dL (6.3-8.2)
[2021-03-22] MEDS: HYDROmorphone 1 MG/ML 1 ML SYRINGE IVP PRN ×2 (07:19→21:37)
[2021-03-22] MEDS: LORazepam 0.5 MG TAB PO PRN (07:19)
[2021-03-22] MEDS: IPRATROPIUM 0.5 MG/2.5 ML NEBU INHALATION SCH ×4 (08:06→19:05)
[2021-03-22] MEDS: amLODIPine 10 MG TAB PO SCH (08:07)
[2021-03-22] MEDS: NICOTINE 14MG/24HR PATCH TRANSDERM SCH (08:07)
[2021-03-22] MEDS: ENOXAPARIN 40 MG/0.4 ML SYRINGE SQ SCH (08:07)
[2021-03-22] MEDS: CITALOPRAM HYDROBROMIDE 20 MG TAB PO SCH (08:07)
[2021-03-22] MEDS: PANTOPRAZOLE 40 MG/10 ML VIAL IV SCH (08:55)
--- NOTE | 2021-03-22 15:09 | P.PN ---
Subjective Progress Note Date: 03/22/21 CHIEF COMPLAINT: Perforated gastric ulcer HISTORY OF PRESENT ILLNESS: The patient is a 85-year-old female status post partial gastrectomy with gastrojejunostomy, 03/17/2021. She is tolerating diet. She is resting comfortably. ROS: No fevers or chills. No new chest pain. PHYSICAL EXAM: VITAL SIGNS: Reviewed CONSTITUTIONAL: Well developed and in no acute distress. EYES: Conjuctivae without sclera icterus. Extraocular movements grossly intact. HEAD, EARS, NOSE, THROAT: Moist buccal mucosa. Head is atraumatic, normocephalic. No nasal drainage. RESPIRATORY: Non-labored respirations and equal bilateral excursions. CARDIOVASCULAR: Palpable 2+ radial pulses. ABDOMEN: Dressing clean dry and intact. MUSCULOSKELETAL: No gross deformity of the lower extremities noted. No clubbing. No cyanosis. SKIN: Good skin turgor. Well perfused. NEUROLOGIC: Cranial nerves II through XII grossly intact. No focal or lateralizing signs. PSYCH: Alert to person. CLINICAL LABS: Reviewed. Creatinine 0.48 ASSESSMENT: 1. Perforated gastric ulcer PLAN: 1. Continue liquid diet for now. 2. Wean TPN once tolerating regular diet. Objective - Vital Signs Vital signs: Vital Signs Temp 98.1 F 03/22/21 09:00 Pulse 107 H 03/22/21 12:53 Resp 18 03/22/21 09:00 BP 149/70 03/22/21 09:00 Pulse Ox 91 L 03/22/21 12:48 Intake & Output 03/21/21 03/22/21 03/22/21 18:59 06:59 18:59 Intake Total 1035.3333 Balance 1035.3333 Intake: Intake, IV Titration 1035.3333 Amount Potassium Phosphate 25 1035.3333 mmol Sodium Acetate 30 meq Magnesium Sulfate gm 1 gm Calcium Gluconate 1 gm In Amino Acid 5%-D15w 1,000 ml @ 65 mls/hr IV . BY DURATION [facility] Rx#: [id number] Other: # Voids 3 3 - Labs CBC & Chem 7: 03/21/21 05:28 03/22/21 05:49 Labs: Abnormal Lab Results - Last 24 Hours (Table) 03/22/21 Range/Units 05:49 Chloride 108 H (98-107) mmol/L BUN 28 H (7-17) mg/dL Creatinine 0.48 L (0.52-1.04) mg/dL Glucose 137 H (74-99) mg/dL Total Protein 5.4 L (6.3-8.2) g/dL Albumin 2.7 L (3.5-5.0) g/dL
[2021-03-22] MEDS: traZODone HCL 50 MG TAB PO SCH (19:36)
[2021-03-23] MEDS: metroNIDAZOLE-NS PMX 500 MG in SALINE 1 100ML.BAG IVPB SCH ×5 (00:22→23:32)
--- NOTE | 2021-03-23 01:05 | P.PN ---
Subjective Progress Note Date: 03/21/21 - History of Present Illness 85-year-old the a pleasant female came in with compensative diffuse abdominal pain sharp in nature along with the nausea has been going on for couple days, patient denied any diarrhea. Patient doesn't have any fever chills doesn't have any leukocytosis patient has a CT of the abdomen which showed some a proximal to the stomach because of which patient was admitted to general surgery and patient is presently on metronidazole and levofloxacin. Concern for peptic ulcer dise ase and perforation. Patient pain significant improved. Patient blood pressure is bit elevated today. Patient will undergo upper GI endoscopy tomorrow. 03/16/2021 Patient is seen in follow up this morning and continues with abdominal pain. General surgery as attending plans on EGD today and patient is currently NPO. Patient denies any nausea or vomiting. Patient reports to passing gas and having bowel movements and denies blood in the stool. Patient is continued on IV ceftriaxone and flagyl for concern for possible perforation. No new labs today and will repeat in the am. 03/17/2021 Patient is seen and evaluated in follow-up and continues with abdominal pain. Patient underwent EGD yesterday which shows a large ulcer with tunneling and is scheduled to undergo partial gastrectomy with Dr. Alexander. Plans were for surgery on Tuesday although patient is having large amounts of bloody stools and will be going to surgery today. Patient was made nothing by mouth. Risks versus benefits were discussed with the patient and patient is willing to proceed with intervention. Patient is an intermediate risk given her long extensive history of continued tobacco abuse although given the new findings and urgency with bleeding patient should go for surgical intervention today. Patien t denies any chest pain or shortness of breath. Patient is afebrile. No reports of nausea or vomiting and patient is nothing by mouth for the procedure. 03/18/2021 Patient is seen in follow up this morning and is status post exploratory laparotomy, distal gastrectomy with gastrojejunostomy and is being closely monitored. Patient is lethargic but easily arousable. Surgical dressing is dry and intact and patient continues with abdominal pain and binder is in place. Patient also continues with NG tube and is NPO requesting ice chips. Dietitian also consulted and patient to receive PICC line to initiate TPN. WBC increased to 16.1 most likely reactive and will monitor closely. Patient is afebrile and denies chest pain or shortness of breath. 03/19/2021 Patient is seen in follow-up today continues to have some abdominal pain although denies any worsening pain. Patient is continued nothing by mouth with NG tube and is receiving TPN. Patient denies any chest pain or shortness of breath. Patient states she does have a cough which is most likely chronic because she is continued ongoing nicotine use. Patient continues on IV ceftriaxone along with Flagyl and will continue. Patient is afebrile. Patient continues to be hypertensive and currently nothing by mouth so will continue wit h IV hydralazine and monitor closely. Patients potassium mildly low at 3.4 and does have potassium in the TPN and fluids although will replace and repeat labs recommended. 03/20/2021 Patient is seen this morning in follow up today and has had NG tube removed. Patient is more awake and alert today and continues with periods of confusion at times. Per RN, daughter reported to her that patient does drink almost daily and feels she is actively withdrawing. Will add CIWA and monitor closely. Patient also continues with dilaudid and recommend caution against excessive use. Patient denies any chest pain or shortness of breath and is currenly sitting up at the side of the bed on room air. IS at the bedside and encouraged the patient to continue using 10 times every hour while awake. No bowel sounds noted on exam and patient denies passing gas or bowel activity. Patient is being started on clear liquid diet and continues on TPN. 03/21/2021 Patient currently lying in the bed. Awake alert and oriented. Lethargic and drowsy. Status post partial gastrectomy with gastro jejunostomy on 03/17/2021 due to perforated gastric ulcer.. Patient has been afebrile. No complaints of chest pain or worsening shortness of breath. Patient is currently on TPN. Laboratory showed WBC 13.1 hemoglobin 12.1 and platelets 385 BUN 24 and creatinine 0.43 blood pressure is fairly controlled. We will add lis inopril. Current medications reviewed. Objective - Vital Signs Vital signs: Vital Signs Temp 97.9 F 03/21/21 14:00 Pulse 92 03/21/21 15:30 Resp 18 03/21/21 15:30 BP 160/61 03/21/21 15:30 Pulse Ox 93 L 03/21/21 15:30 Intake & Output 03/21/21 03/21/21 03/22/21 06:59 18:59 06:59 Intake Total 480 Balance 480 Intake: Oral 480 Other: Voiding Method Toilet # Voids 1 3 - Exam PHYSICAL EXAMINATION: GENERAL: The patient is alert and oriented x3, not in any acute distress. much more awake today and sitting up at the side of the bed. Thin build, cachetic HEENT: Pupils are round and equally reacting to light. EOMI. No scleral icterus. No conjunctival pallor. Normocephalic, atraumatic. No pharyngeal erythema. No thyromegaly. CARDIOVASCULAR: S1 and S2 present. No murmurs, rubs, or gallops. PULMONARY: Chest is clear to auscultation, no wheezing or crackles. ABDOMEN: Soft, minimal diffuse tenderness, nondistended, absent bowel sounds. No palpable organomegaly. surgical dressing is dry and intact with minimal old blood noted since surgery. abdominal binder noted. MUSCULOSKELETAL: No joint swelling or deformity. EXTREMITIES: No cyanosis, clubbing, or pedal edema. NEUROLOGICAL: Gross neurological examination did not reveal any focal deficits. generalized weakness SKIN: No rashes. - Labs CBC & Chem 7: 03/21/21 05:28 03/22/21 05:49 Labs: Abnormal Lab Results - Last 24 Hours (Table) 03/21/21 03/21/21 03/21/21 Range/Units 05:28 05:28 05:28 WBC 13.1 H (3.8-10.6) k/uL Neutrophils # 11.8 H (1.3-7.7) k/uL Lymphocytes # 0.8 L (1.0-4.8) k/uL Chloride 111 H (98-107) mmol/L BUN 24 H (7-17) mg/dL Creatinine 0.43 L (0.52-1.04) mg/dL Glucose 138 H (74-99) mg/dL Phosphorus 2.3 L (2.4-5.1) mg/dL Assessment and Plan Assessment: Assessment and plan: - Perforated gastric ulcer. Status post partial gastrectomy gastrojejunostomy on 03/17/2021. continues with TPN and tolerating thus far, being started on CLD and NG tube removed -status post EGD showing large penetrating ulcer with large tunneling within the ulcer. Patient underwent distal gastrectomy -possible acute alcohol withdrawal with some mild tremons noted. Was just informed today from family that patient is a heavy daily drinker and possibly withdrawing. Will start CIWA protocol and monitor closely. -leukocytosis most likely reactive from recent surgery. will monitor and repeat labs -Hypertension, can now have oral and added norvasc -COPD without any acute exacerbation continue with albuterol inhalational treatments -Continued nicotine use: Counseling was provided -moderate protein calorie malnutrition with a bmi of 17.9 -DVT prophylaxis: As per primary service -GI prophylaxis -Full code, no intubation Plan: Recommend to continue with current medication management. Continue IV hydration although patient was receiving a large amount of fluids and blood pressure continues to be elevated. Will add norvasc and continue IV hydralazine as needed. Will decrease fluid dosing. Family reported that patient drinks daily and possibly withdrawing and will add CIWA and monitor closely. WBC continues to be elevated and will repeat am labs. Continue IV antibiotics. Patient is status post exploratory laparotomy, distal gastrectomy with gastrojejunostomy and being started on clear liquids and NG tube was removed. Continue TPN for now per surgery. Encouraged increased activity as tolerated. Patient is afebrile. Will repeat a.m. labs and continue to monitor closely. Will continue to follow along with surgery during hospitalization. Time with Patient: Greater than 30
--- NOTE | 2021-03-23 01:11 | P.PN ---
Subjective Progress Note Date: 03/22/21 - History of Present Illness 85-year-old the a pleasant female came in with compensative diffuse abdominal pain sharp in nature along with the nausea has been going on for couple days, patient denied any diarrhea. Patient doesn't have any fever chills doesn't have any leukocytosis patient has a CT of the abdomen which showed some a proximal to the stomach because of which patient was admitted to general surgery and patient is presently on metronidazole and levofloxacin. Concern for peptic ulcer dise ase and perforation. Patient pain significant improved. Patient blood pressure is bit elevated today. Patient will undergo upper GI endoscopy tomorrow. 03/16/2021 Patient is seen in follow up this morning and continues with abdominal pain. General surgery as attending plans on EGD today and patient is currently NPO. Patient denies any nausea or vomiting. Patient reports to passing gas and having bowel movements and denies blood in the stool. Patient is continued on IV ceftriaxone and flagyl for concern for possible perforation. No new labs today and will repeat in the am. 03/17/2021 Patient is seen and evaluated in follow-up and continues with abdominal pain. Patient underwent EGD yesterday which shows a large ulcer with tunneling and is scheduled to undergo partial gastrectomy with Dr. Alexander. Plans were for surgery on Tuesday although patient is having large amounts of bloody stools and will be going to surgery today. Patient was made nothing by mouth. Risks versus benefits were discussed with the patient and patient is willing to proceed with intervention. Patient is an intermediate risk given her long extensive history of continued tobacco abuse although given the new findings and urgency with bleeding patient should go for surgical intervention today. Patien t denies any chest pain or shortness of breath. Patient is afebrile. No reports of nausea or vomiting and patient is nothing by mouth for the procedure. 03/18/2021 Patient is seen in follow up this morning and is status post exploratory laparotomy, distal gastrectomy with gastrojejunostomy and is being closely monitored. Patient is lethargic but easily arousable. Surgical dressing is dry and intact and patient continues with abdominal pain and binder is in place. Patient also continues with NG tube and is NPO requesting ice chips. Dietitian also consulted and patient to receive PICC line to initiate TPN. WBC increased to 16.1 most likely reactive and will monitor closely. Patient is afebrile and denies chest pain or shortness of breath. 03/19/2021 Patient is seen in follow-up today continues to have some abdominal pain although denies any worsening pain. Patient is continued nothing by mouth with NG tube and is receiving TPN. Patient denies any chest pain or shortness of breath. Patient states she does have a cough which is most likely chronic because she is continued ongoing nicotine use. Patient continues on IV ceftriaxone along with Flagyl and will continue. Patient is afebrile. Patient continues to be hypertensive and currently nothing by mouth so will continue wit h IV hydralazine and monitor closely. Patients potassium mildly low at 3.4 and does have potassium in the TPN and fluids although will replace and repeat labs recommended. 03/20/2021 Patient is seen this morning in follow up today and has had NG tube removed. Patient is more awake and alert today and continues with periods of confusion at times. Per RN, daughter reported to her that patient does drink almost daily and feels she is actively withdrawing. Will add CIWA and monitor closely. Patient also continues with dilaudid and recommend caution against excessive use. Patient denies any chest pain or shortness of breath and is currenly sitting up at the side of the bed on room air. IS at the bedside and encouraged the patient to continue using 10 times every hour while awake. No bowel sounds noted on exam and patient denies passing gas or bowel activity. Patient is being started on clear liquid diet and continues on TPN. 03/21/2021 Patient currently lying in the bed. Awake alert and oriented. Lethargic and drowsy. Status post partial gastrectomy with gastro jejunostomy on 03/17/2021 due to perforated gastric ulcer.. Patient has been afebrile. No complaints of chest pain or worsening shortness of breath. Patient is currently on TPN. Laboratory showed WBC 13.1 hemoglobin 12.1 and platelets 385 BUN 24 and creatinine 0.43 blood pressure is fairly controlled. We will add lis inopril. 03/22/2021 Patient is currently resting in bed. Awake and alert. Lethargic and sleepy. R emains on TPN. Continued on antibiotics above ceftriaxone and Flagyl. Blood pressure is still elevated with SBP in 170s. Patient will be continued on hydralazine IV and Norvasc. Lisinopril will be added. Patient has been afebrile. Currently requiring oxygen at 2 L via nasal cannula and saturating at 92%. Patient is also on full liquid diet. Lab data showed sodium 137 potassium 3.9 chloride 108 BUN 28 and creatinine 0.48 Patient has been afebrile. No nausea vomiting or diarrhea. No chest pain or shortness of breath. No cough or sputum production. Current medications reviewed. Current medications reviewed. Objective - Vital Signs Vital signs: Vital Signs Temp 98.1 F 03/22/21 09:00 Pulse 107 H 03/22/21 12:53 Resp 18 03/22/21 09:00 BP 149/70 03/22/21 09:00 Pulse Ox 91 L 03/22/21 12:48 Intake & Output 03/21/21 03/22/21 03/22/21 18:59 06:59 18:59 Intake Total 1035.3333 Balance 1035.3333 Intake: Intake, IV Titration 1035.3333 Amount Potassium Phosphate 25 1035.3333 mmol Sodium Acetate 30 meq Magnesium Sulfate gm 1 gm Calcium Gluconate 1 gm In Amino Acid 5%-D15w 1,000 ml @ 65 mls/hr IV . BY DURATION [facility] Rx#: [id number] Other: # Voids 3 3 - Exam PHYSICAL EXAMINATION: GENERAL: The patient is alert and oriented x3, not in any acute distress. much more awake today and sitting up at the side of the bed. Thin build, cachetic HEENT: Pupils are round and equally reacting to light. EOMI. No scleral icterus. No conjunctival pallor. Normocephalic, atraumatic. No pharyngeal erythema. No thyromegaly. CARDIOVASCULAR: S1 and S2 present. No murmurs, rubs, or gallops. PULMONARY: Chest is clear to auscultation, no wheezing or crackles. ABDOMEN: Soft, minimal diffuse tenderness, nondistended, absent bowel sounds. No palpable organomegaly. surgical dressing is dry and intact with minimal old blood noted since surgery. abdominal binder noted. MUSCULOSKELETAL: No joint swelling or deformity. EXTREMITIES: No cyanosis, clubbing, or pedal edema. NEUROLOGICAL: Gross neurological examination did not reveal any focal deficits. generalized weakness SKIN: No rashes. - Labs CBC & Chem 7: 03/21/21 05:28 03/22/21 05:49 Labs: Abnormal Lab Results - Last 24 Hours (Table) 03/22/21 Range/Units 05:49 Chloride 108 H (98-107) mmol/L BUN 28 H (7-17) mg/dL Creatinine 0.48 L (0.52-1.04) mg/dL Glucose 137 H (74-99) mg/dL Total Protein 5.4 L (6.3-8.2) g/dL Albumin 2.7 L (3.5-5.0) g/dL Assessment and Plan Assessment: Assessment and plan: - Perforated gastric ulcer. Status post partial gastrectomy gastrojejunostomy on 03/17/2021. continues with TPN and tolerating thus far, being started on CLD and NG tube removed -status post EGD showing large penetrating ulcer with large tunneling within the ulcer. Patient underwent distal gastrectomy -possible acute alcohol withdrawal with some mild tremons noted. Was just informed today from family that patient is a heavy daily drinker and possibly withdrawing. Will start CIWA protocol and monitor closely. -leukocytosis most likely reactive from recent surgery. will monitor and repeat labs -Hypertension, can now have oral and added norvasc -COPD without any acute exacerbation continue with albuterol inhalational treatments -Continued nicotine use: Counseling was provided -moderate protein calorie malnutrition with a bmi of 17.9 -DVT prophylaxis: As per primary service -GI prophylaxis -Full code, no intubation Plan: Recommend to continue with current medication management. Continue IV hydration although patient was receiving a large amount of fluids and blood pressure continues to be elevated. Will add norvasc and continue IV hydralazine as needed. Will decrease fluid dosing. Family reported that patient drinks daily and possibly withdrawing and will add CIWA and monitor closely. WBC continues to be elevated and will repeat am labs. Continue IV antibiotics. Patient is status post exploratory laparotomy, distal gastrectomy with gastroje junostomy and being started on clear liquids and NG tube was removed. Continue TPN for now per surgery. Encouraged increased activity as tolerated. Patient is afebrile. Will repeat a.m. labs and continue to monitor closely. Will continue to follow along with surgery during hospitalization. Time with Patient: Greater than 30
[2021-03-23 06:08] LABS: ALT 18 U/L (4-34); AST 36 U/L (14-36); African American GFR (CKD) >90 (>60 ml/min/1.73 sqM); Albumin 2.5 g/dL (3.5-5.0); Albumin/Globulin Ratio 0.9; Alkaline Phosphatase 38 U/L (38-126); Anion Gap 3 mmol/L; Blood Urea Nitrogen 29 mg/dL (7-17); Calcium 8.6 mg/dL (8.4-10.2); Carbon Dioxide 26 mmol/L (22-30); Chloride 108 mmol/L (98-107); Globulin 2.7 g/dL; Glucose 128 mg/dL (74-99); Non-African American GFR(CKD) >90 (>60 ml/min/1.73 sqM); Phosphorus 3.4 mg/dL (2.5-4.5); Sodium 137 mmol/L (137-145); Total Bilirubin 0.4 mg/dL (0.2-1.3); Total Protein 5.2 g/dL (6.3-8.2)
[2021-03-23] MEDS: IPRATROPIUM 0.5 MG/2.5 ML NEBU INHALATION SCH ×4 (09:08→20:29)
[2021-03-23] MEDS: CITALOPRAM HYDROBROMIDE 20 MG TAB PO SCH (09:27)
[2021-03-23] MEDS: ENOXAPARIN 40 MG/0.4 ML SYRINGE SQ SCH (09:27)
[2021-03-23] MEDS: amLODIPine 10 MG TAB PO SCH (09:27)
[2021-03-23] MEDS: lisinopriL 5 MG TAB PO SCH (09:27)
[2021-03-23] MEDS: NICOTINE 14MG/24HR PATCH TRANSDERM SCH (09:28)
[2021-03-23] MEDS: PANTOPRAZOLE 40 MG/10 ML VIAL IV SCH (09:28)
[2021-03-23 09:39] LABS: Basophils # (A) 0.05 X 10*3/uL (0.00-0.10); Basophils % (A) 0.3 %; Eosinophils # (A) 0.01 X 10*3/uL (0.04-0.35); Eosinophils % (A) 0.1 %; HCT 35.8 % (37.2-46.3); HGB 11.7 g/dL (12.0-15.0); Immature Grans, Automated 0.8 %; Lymphocytes # (A) 0.81 X 10*3/uL (0.90-5.00); Lymphocytes % (A) 4.5 %; MCH 31.2 pg (27.0-32.0); MCHC 32.7 g/dL (32.0-37.0); MCV 95.5 fL (80.0-97.0); Mean Platelet Volume 9.8 fL (9.5-12.2); Monocytes # (A) 0.81 X 10*3/uL (0.20-1.00); Monocytes % (A) 4.5 %; NRBC Per 100 WBC 0 /100 WBCS (0.0-0.0); Neutrophils # (A) 16.34 X 10*3/uL (1.80-7.70); Neutrophils % (A) 89.8 %; Platelet Count 319 X 10*3/uL (140-440); RBC 3.75 X 10*6/uL (4.10-5.20); RDW 13.7 % (11.5-14.5); WBC 18.17 X 10*3/uL (4.50-10.00)
[2021-03-23] MEDS ORDERED: FUROSEMIDE 10 MG/ML 4 ML VIAL IV STA (10:07)
[2021-03-23] MEDS: LORazepam 2 MG/ML INJ IV PRN ×2 (12:11→15:57)
--- NOTE | 2021-03-23 14:03 | XR ---
EXAMINATION TYPE: XR chest 1V portable DATE OF EXAM: 03/23/2021 Comparison: None Clinical History: 85 year-old female shortness of breath Findings: Left PICC tip at the lower SVC. The heart margins are obscured by adjacent pleural parenchymal opacit y. Small bilateral pleural effusions are present with patchy bibasilar opacities. Upper lung lucencie s. Impression: COPD. Small bilateral pleural effusions with prominent bibasilar atelectasis and/or consolidation.
--- NOTE | 2021-03-23 15:51 | P.PN ---
Subjective Progress Note Date: 03/23/21 CHIEF COMPLAINT: Gastric perforation HISTORY OF PRESENT ILLNESS: Patient is status post exploratory laparotomy, distal gastrectomy with gastrojejunostomy. Postop day #6. Patient is reporting improvement in her abdominal pain. She is having diarrhea and flatus. Denies any nausea or vomiting. Does report pain with coughing. She does have a congested cough with lower extremity edema. Medicine service has ordered a dose of IV Lasix for fluid overload. She is eating a few bites off of her full liq uid tray. Per nurse patient's family reports that she usually picks at her food at home. Afebrile. Heart rate 100. Blood pressure 180/77. Blood pressures have remained elevated. Medicine service following. WBC is up from 13.1 and 18.17 and hemoglobin 11.7 platelets 319 sodium 137 potassium 4.0 creatinine 0.45 albumin 2.5 Patient seen and examined with Dr. santos PHYSICAL EXAM: VITAL SIGNS: Reviewed. GENERAL: Well-developed in no acute distress. HEENT: No sclera icterus. Extraocular movements grossly intact. Moist buccal mucosa. Head is atraumatic, normocephalic. ABDOMEN: Soft. Mildly distended. Abdominal incision clean dry and intact NEUROLOGIC: Alert and oriented. Cranial nerves II through XII grossly intact. ASSESSMENT: 1. Perforated gastric ulcer with penetration into the lesser sac status post exploratory laparotomy, distal gastrectomy with gastrojejunostomy 2. Hypertension 3. Leukocytosis 4. Severe protein calorie malnutrition PLAN: -Continue full liquid diet -Start to titrate off the TPN -Add Ensure -Continue pain medication as needed -JODI hose ordered for lower extremity edema and keep legs elevated -Hypertension management per medicine service -Continue IV Protonix -Continue antibiotics -Encourage patient to increase activity -Encourage patient to use incentive spirometer -DVT prophylaxis Lovenox Physician Child Health Associate note has been reviewed by physician. Signing provider agrees with the documented findings, assessment, and plan of care. Objective - Vital Signs Vital signs: Vital Signs Temp 98.3 F 03/23/21 08:00 Pulse 100 03/23/21 09:17 Resp 18 03/23/21 08:00 BP 180/77 03/23/21 08:00 Pulse Ox 95 03/23/21 08:00 Intake & Output 03/22/21 03/23/21 03/23/21 18:59 06:59 18:59 Intake Total 1035.3333 1035.3333 Balance 1035.3333 1035.3333 Intake: Intake, IV Titration 1035.3333 1035.3333 Amount Potassium Phosphate 25 1035.3333 1035.3333 mmol Sodium Acetate 30 meq Magnesium Sulfate gm 1 gm Calcium Gluconate 1 gm In Amino Acid 5%-D15w 1,000 ml @ 65 mls/hr IV . BY DURATION [facility] Rx#: [id number] Other: Voiding Method Toilet # Voids 3 3 # Bowel Movements 1 4 - Labs CBC & Chem 7: 03/23/21 04:26 03/23/21 04:26 Labs: Abnormal Lab Results - Last 24 Hours (Table) 03/23/21 03/23/21 Range/Units 04:26 04:26 WBC 18.17 H (4.50-10.00) X 10*3/uL RBC 3.75 L (4.10-5.20) X 10*6/uL Hgb 11.7 L (12.0-15.0) g/dL Hct 35.8 L (37.2-46.3) % Immature Gran # 0.15 H (0.00-0.04) X 10*3/uL Neutrophils # 16.34 H (1.80-7.70) X 10*3/uL Lymphocytes # 0.81 L (0.90-5.00) X 10*3/uL Eosinophils # 0.01 L (0.04-0.35) X 10*3/uL Chloride 108 H (98-107) mmol/L BUN 29 H (7-17) mg/dL Creatinine 0.45 L (0.52-1.04) mg/dL Glucose 128 H (74-99) mg/dL Total Protein 5.2 L (6.3-8.2) g/dL Albumin 2.5 L (3.5-5.0) g/dL Microbiology - Last 24 Hours (Table) 03/17/21 05:45 Stool Culture - Final Stool
[2021-03-23] MEDS: FUROSEMIDE 10 MG/ML 2 ML VIAL IV SCH ×2 (15:57→18:35)
[2021-03-23] MEDS: HYDROmorphone 0.5 MG/0.5 ML SYRINGE IVP PRN (17:27)
[2021-03-23] MEDS: traZODone HCL 50 MG TAB PO SCH (19:40)
[2021-03-24] MEDS: LORazepam 0.5 MG TAB PO PRN ×2 (01:10→10:36)
[2021-03-24] MEDS: metroNIDAZOLE-NS PMX 500 MG in SALINE 1 100ML.BAG IVPB SCH ×3 (06:03→17:25)
[2021-03-24] MEDS: amLODIPine 10 MG TAB PO SCH (07:45)
[2021-03-24] MEDS: CITALOPRAM HYDROBROMIDE 20 MG TAB PO SCH (07:45)
[2021-03-24] MEDS: lisinopriL 5 MG TAB PO SCH (07:45)
[2021-03-24] MEDS: PANTOPRAZOLE 40 MG/10 ML VIAL IV SCH (07:45)
[2021-03-24] MEDS: ENOXAPARIN 40 MG/0.4 ML SYRINGE SQ SCH (07:46)
[2021-03-24] MEDS: NICOTINE 14MG/24HR PATCH TRANSDERM SCH (07:46)
[2021-03-24] MEDS: FUROSEMIDE 10 MG/ML 2 ML VIAL IV SCH ×2 (07:46→19:49)
[2021-03-24 09:00] LABS: Basophils % (A) 0 %; Eosinophils # (A) 0.1 k/uL (0-0.7); Eosinophils % (A) 1 %; HGB 13.6 gm/dL (11.4-16.0); Lymphocytes # (A) 0.8 k/uL (1.0-4.8); Lymphocytes % (A) 6 %; MCH 30.9 pg (25.0-35.0); MCHC 31.6 g/dL (31.0-37.0); MCV 97.8 fL (80.0-100.0); Mean Platelet Volume 7.3; Monocytes # (A) 0.5 k/uL (0-1.0); Monocytes % (A) 4 %; Neutrophils # (A) 11.6 k/uL (1.3-7.7); Neutrophils % (A) 88 %; Platelet Count 431 k/uL (150-450); RDW 13.4 % (11.5-15.5); WBC 13.2 k/uL (3.8-10.6)
[2021-03-24] MEDS: IPRATROPIUM 0.5 MG/2.5 ML NEBU INHALATION SCH ×4 (09:04→20:33)
[2021-03-24 09:15] LABS: African American GFR (CKD) >90 (>60 ml/min/1.73 sqM); Anion Gap 5 mmol/L; Blood Urea Nitrogen 26 mg/dL (7-17); Calcium 8.7 mg/dL (8.4-10.2); Carbon Dioxide 31 mmol/L (22-30); Chloride 102 mmol/L (98-107); Glucose 106 mg/dL (74-99); Non-African American GFR(CKD) >90 (>60 ml/min/1.73 sqM); Sodium 138 mmol/L (137-145)
[2021-03-24 09:29] LABS: Potassium 3.5 mmol/L (3.5-5.1)
--- NOTE | 2021-03-24 14:24 | P.PN ---
Subjective Progress Note Date: 03/24/21 CHIEF COMPLAINT: Gastric perforation HISTORY OF PRESENT ILLNESS: Patient is status post exploratory laparotomy, distal gastrectomy with gastrojejunostomy. Postop day #7. Patient reports her pain is controlled. She is having bowel movements and flatus. She did have some nausea this morning. Her TPN will be weaned off today. She's tolerating full liquid diet. Afebrile. BP showing improvement. WBC 18.17 down to 13.2 hemoglobin 13.6 platelets 431 Patient seen and examined with Dr. santos PHYSICAL EXAM: VITAL SIGNS: Reviewed. GENERAL: Well-developed in no acute distress. HEENT: No sclera icterus. Extraocular movements grossly intact. Moist buccal mucosa. Head is atraumatic, normocephalic. ABDOMEN: Soft. Mildly distended. Abdominal incision clean dry and intact NEUROLOGIC: Alert and oriented. Cranial nerves II through XII grossly intact. ASSESSMENT: 1. Perforated gastric ulcer with penetration into the lesser sac status post exploratory laparotomy, distal gastrectomy with gastrojejunostomy 2. Hypertension 3. Leukocytosis 4. Severe protein calorie malnutrition PLAN: -Advance diet to regular -Wean off TPN -Add [place] for oral pain medication -Continue pain medication as needed -JODI hose ordered for lower extremity edema and keep legs elevated -Hypertension management per medicine service -Continue IV Protonix -Continue antibiotics -Encourage patient to increase activity -Encourage patient to use incentive spirometer -DVT prophylaxis Lovenox Physician Transmission System Operator note has been reviewed by physician. Signing provider agrees with the documented findings, assessment, and plan of care. Objective - Vital Signs Vital signs: Vital Signs Temp 97.5 F L 03/24/21 08:03 Pulse 84 03/24/21 11:57 Resp 18 03/24/21 09:14 BP 146/86 03/24/21 08:03 Pulse Ox 93 L 03/24/21 09:04 Intake & Output 03/23/21 03/24/21 03/24/21 18:59 06:59 18:59 Intake Total 480 1035.3333 480 Balance 480 1035.3333 480 Weight 43.091 kg Intake: Intake, IV Titration 1035.3333 Amount Potassium Phosphate 25 1035.3333 mmol Sodium Acetate 30 meq Magnesium Sulfate gm 1 gm Calcium Gluconate 1 gm In Amino Acid 5%-D15w 1,000 ml @ 65 mls/hr IV . BY DURATION [facility] Rx#: [id number] Oral 480 480 Other: Voiding Method Toilet # Voids 3 5 - Labs CBC & Chem 7: 03/24/21 08:13 03/24/21 08:13 Labs: Abnormal Lab Results - Last 24 Hours (Table) 03/24/21 03/24/21 Range/Units 08:13 08:13 WBC 13.2 H (3.8-10.6) k/uL Neutrophils # 11.6 H (1.3-7.7) k/uL Lymphocytes # 0.8 L (1.0-4.8) k/uL Carbon Dioxide 31 H (22-30) mmol/L BUN 26 H (7-17) mg/dL Creatinine 0.47 L (0.52-1.04) mg/dL Glucose 106 H (74-99) mg/dL
--- NOTE | 2021-03-24 14:34 | P.PN ---
Subjective Progress Note Date: 03/23/21 - Reason for Consult Hypertension management - History of Present Illness 85-year-old the a pleasant female came in with compensative diffuse abdominal pain sharp in nature along with the nausea has been going on for couple days, patient denied any diarrhea. Patient doesn't have any fever chills doesn't have any leukocytosis patient has a CT of the abdomen which showed some a proximal to the stomach because of which patient was admitted to general surgery and patient is presently on metronidazole and levofloxacin. Concern for peptic ulcer disease and perforation. Patient pain significant improved. Patient blood pressure is bit elevated today. Patient will undergo upper GI endoscopy tomorro w. 03/16/2021 Patient is seen in follow up this morning and continues with abdominal pain. General surgery as attending plans on EGD today and patient is currently NPO. Patient denies any nausea or vomiting. Patient reports to passing gas and having bowel movements and denies blood in the stool. Patient is continued on IV ceftriaxone and flagyl for concern for possible perforation. No new labs today and will repeat in the am. 03/17/2021 Patient is seen and evaluated in follow-up and continues with abdominal pain. Patient underwent EGD yesterday which shows a large ulcer with tunneling and is scheduled to undergo partial gastrectomy with Dr. Alexander. Plans were for surgery on Tuesday although patient is having large amounts of bloody stools and will be going to surgery today. Patient was made nothing by mouth. Risks versus benefits were discussed with the patient and patient is willing to proceed with intervention. Patient is an intermediate risk given her long extensive history of continued tobacco abuse although given the new findings and urgency with bleeding patient should go for surgical intervention today. Patient denies any chest pain or shortness of breath. Patient is afebrile. No reports of nausea or vomiting and patient is nothing by mouth for the procedure. 03/18/2021 Patient is seen in follow up this morning and is status post exploratory laparotomy, distal gastrectomy with gastrojejunostomy and is being closely monitored. Patient is lethargic but easily arousable. Surgical dressing is dry and intact and patient continues with abdominal pain and binder is in place. Patient also continues with NG tube and is NPO requesting ice chips. Dietitian also consulted and patient to receive PICC line to initiate TPN. WBC increased to 16.1 most likely reactive and will monitor closely. Patient is afebrile and denies chest pain or shortness of breath. 03/19/2021 Patient is seen in follow-up today continues to have some abdominal pain although denies any worsening pain. Patient is continued nothing by mouth with NG tube and is receiving TPN. Patient denies any chest pain or shortness of breath. Patient states she does have a cough which is most likely chronic because she is continued ongoing nicotine use. Patient continues on IV ceftriaxone along with Flagyl and will continue. Patient is afebrile. Patient continues to be hypertensive and currently nothing by mouth so will continue with IV hydralazine and monitor closely. Patients potassium mildly low at 3.4 and does have potassium in the TPN and fluids although will replace and repeat labs recommended. 03/20/2021 Patient is seen this morning in follow up today and has had NG tube removed. Patient is more awake and alert today and continues with periods of confusion at times. Per RN, daughter reported to her that patient does drink almost daily and feels she is actively withdrawing. Will add CIWA and monitor closely. Patient also continues with dilaudid and recommend caution against excessive use. Patient denies any chest pain or shortness of breath and is currenly sitting up at the side of the bed on room air. IS at the bedside and encouraged the patient to continue using 10 times every hour while awake. No bowel sounds noted on exam and patient denies passing gas or bowel activity. Patient is being started on clear liquid diet and continues on TPN. 03/21/2021 Patient currently lying in the bed. Awake alert and oriented. Lethargic and drowsy. Status post partial gastrectomy with gastro jejunostomy on 03/17/2021 due to perforated gastric ulcer.. Patient has been afebrile. No complaints of chest pain or worsening shortness of breath. Patient is currently on TPN. Laboratory showed WBC 13.1 hemoglobin 12.1 and platelets 385 BUN 24 and creatinine 0.43 blood pressure is fairly controlled. We will add lisinopril. 03/22/2021 Patient is currently resting in bed. Awake and alert. Lethargic and sleepy. Remains on TPN. Continued on antibiotics above ceftriaxone and Flagyl. Blood pressure is still elevated with SBP in 170s. Patient will be continued on hydralazine IV and Norvasc. Lisinopril will be added. Patient has been afebrile. Currently requiring oxygen at 2 L via nasal cannula and saturating at 92%. Patient is also on full liquid diet. Lab data showed sodium 137 potassium 3.9 chloride 108 BUN 28 and creatinine 0.48 Patient has been afebrile. No nausea vomiting or diarrhea. No chest pain or shortness of breath. No cough or sputum production. 03/23/2021 Patient is seen in follow-up today and being followed closely. Continue to fol low with general surgery and patient is maintained on IV ceftriaxone along with Flagyl. Patient is on TPN although continuing to wean and diet has been started and tolerating thus far. Patient is having gas and bowel movements and patient states they are all loose stools which she appears to have chronically as she does have a history of colitis. Patient with lower extremity edema that is significant and most likely a component of volume overload as patient was receiving IV fluids along with TPN. Patient to be started on low-dose IV Lasix and will monitor intake and output along with electrolytes and kidney functions. Will repeat labs. White count 18.17 and patient is continued on ceftriaxone and Flagyl. Patient is afebrile. Patient denies any worsening abdominal pain. Labs: WBC is 18.17, hemoglobin is 11.7, platelets are 319, sodium is 137, potassium 4.0, BUN 29, creatinine 0.45, calcium 8.6, phosphorus 3.4, magnesium 2.0 Review of systems: CONSTITUTIONAL: No fever, no malaise, generalized fatigue. CARDIOVASCULAR: No chest pain, orthopnea, PND, no palpitations, no syncope. PULMONARY: No shortness of breath, no cough, no hemoptysis. GASTROINTESTINAL: As mentioned in HPI, no reports of gas or bowel movement NEUROLOGICAL: No headaches, no weakness, no numbness. GENITOURINARY: Denies any burning micturition, frequency, or urgency. MUSCULOSKELETAL/RHEUMATOLOGICAL: Denies any joint pain, swelling, or any muscle pain. Active Medications Albuterol/Ipratropium (Ipratropium-Albuterol 3 Ml Neb) 3 ml INHALATION RT-QID PRN PRN Reason: Shortness Of Breath Or Wheezing Last Admin: 03/23/21 09:08 Dose: 3 ml Documented by: Amlodipine Besylate (Amlodipine 10 Mg Tab) 10 mg PO DAILY [facility] Last Admin: 03/23/21 09:27 Dose: 10 mg Documented by: Citalopram Hydrobromide (Citalopram Hydrobromide 20 Mg Tab) 40 mg PO DAILY [facility] Last Admin: 03/23/21 09:27 Dose: 40 mg Documented by: Enoxaparin Sodium (Enoxaparin 40 Mg/0.4 Ml Syringe) 40 mg SQ DAILY [facility] Last Admin: 03/23/21 09:27 Dose: 40 mg Documented by: Furosemide (Furosemide 10 Mg/Ml 2 Ml Vial) 20 mg IV Q12HR [facility] Hydralazine HCl (Hydralazine Hcl 20 Mg/Ml 1 Ml Vial) 10 mg IVP Q4HR PRN PRN Reason: Blood Pressure - High Last Admin: 03/22/21 19:36 Dose: 10 mg Documented by: Hydromorphone HCl (Hydromorphone 1 Mg/Ml 1 Ml Syringe) 1 mg IVP Q3HR PRN PRN Reason: Pain Last Admin: 03/22/21 21:37 Dose: 1 mg Documented by: Hydromorphone HCl (Hydromorphone 0.5 Mg/0.5 Ml Syringe) 0.5 mg IVP Q2HR PRN PRN Reason: Moderate Pain Last Admin: 03/21/21 14:59 Dose: 0.5 mg Documented by: Ceftriaxone Sodium 2 gm/ (Sodium Chloride) 50 mls @ 100 mls/hr IVPB Q12HR [facility] Last Admin: 03/23/21 09:27 Dose: 100 mls/hr Documented by: Metronidazole 500 mg/ IV (Solution) 100 mls @ 100 mls/hr IVPB Q6HR [facility] Last Admin: 03/23/21 12:14 Dose: 100 mls/hr Documented by: Fat Emulsion Intravenous 500 (ml/ IV Solution) 500 mls @ 42 mls/hr IV Q7D [facility] Last Admin: 03/19/21 18:11 Dose: 42 mls/hr Documented by: Parenteral Vitamin Supplement 10 ml/ Zinc/Copper/Manganese/Selenium 1 ml/ Potassium Phosphate 25 mmol/ Sodium Acetate 30 meq/ Magnesium Sulfate 1 gm/ Calcium Gluconate 1 gm/ Amino Acids/Dextrose 1,046.3333 mls @ 65 mls/hr IV .BY DURATION [facility] Potassium Phosphate 25 mmol/Sodium Acetate 30 meq/Magnesium Sulfate 1 gm/Calcium Gluconate 1 gm/ Amino Acids/Dextrose 1,035.3333 mls @ 65 mls/hr IV .BY DURATION [facility] Last Admin: 03/23/21 02:15 Dose: 65 mls/hr Documented by: Ipratropium [place] (Ipratropium 0.5 Mg/2.5 Ml Nebu) 0.5 mg INHALATION RT-QID [facility] Last Admin: 03/23/21 12:43 Dose: Not Given Documented by: Lisinopril (Lisinopril 5 Mg Tab) 5 mg PO DAILY [facility] Last Admin: 03/23/21 09:27 Dose: 5 mg Documented by: Lorazepam (Lorazepam 2 Mg/Ml Inj) 1 mg IV Q2HR PRN PRN Reason: CIWA 8 or 9 Last Admin: 03/23/21 12:11 Dose: 1 mg Documented by: Lorazepam (Lorazepam 2 Mg/Ml Inj) 1 mg IV Q1HR PRN PRN Reason: CIWA 10 to 15 Last Admin: 03/22/21 12:45 Dose: 1 mg Documented by: Lorazepam (Lorazepam 0.5 Mg Tab) 0.5 mg PO Q8HR PRN PRN Reason: Anxiety Last Admin: 03/22/21 07:19 Dose: 0.5 mg Documented by: Naloxone HCl (Naloxone 0.4 Mg/Ml 1 Ml Vial) 0.2 mg IV Q2M PRN PRN Reason: Opioid Reversal Nicotine (Nicotine 14mg/24hr Patch) 1 patch TRANSDERM DAILY [facility] Last Admin: 03/23/21 09:28 Dose: 1 patch Documented by: Ondansetron HCl (Ondansetron 4 Mg/2 Ml Vial) 4 mg IVP Q8HR PRN PRN Reason: Nausea And Vomiting Last Admin: 03/20/21 05:20 Dose: 4 mg Documented by: Pantoprazole Sodium (Pantoprazole 40 Mg/10 Ml Vial) 40 mg IV DAILY [facility] Last Admin: 03/23/21 09:28 Dose: 40 mg Documented by: Sodium Chloride (Sodium Chloride 0.9% Flush 10 Ml Syringe) 10 ml IV Q4HR PRN PRN Reason: PICC Line Sodium Chloride (Sodium Chloride 0.9% Flush 10 Ml Syringe) 10 ml IV WEEKLY [facility] Sodium Chloride (Sodium Chloride 0.9% Flush 10 Ml Syringe) 20 ml IV Q4HR PRN PRN Reason: PICC Line Trazodone HCl (Trazodone Hcl 50 Mg Tab) 50 mg PO HS [facility] Last Admin: 03/22/21 19:36 Dose: 50 mg Documented by: PHYSICAL EXAMINATION: GENERAL: The patient is alert and oriented x3, not in any acute distress. much more awake today and sitting up at the side of the bed. Thin build, cachetic HEENT: Pupils are round and equally reacting to light. EOMI. No scleral icterus. No conjunctival pallor. Normocephalic, atraumatic. No pharyngeal erythema. No thyromegaly. CARDIOVASCULAR: S1 and S2 present. No murmurs, rubs, or gallops. PULMONARY: Chest is clear to auscultation, no wheezing or crackles. ABDOMEN: Soft, minimal diffuse tenderness, nondistended, absent bowel sounds. No palpable organomegaly. surgical dressing is dry and intact with minimal old blood noted since surgery. abdominal binder noted. MUSCULOSKELETAL: No joint swelling or deformity. EXTREMITIES: No cyanosis, clubbing, extensive bilateral lower extremity 2+ pitting edema noted on the feet that extends up through the thighs with some weeping noted. NEUROLOGICAL: Gross neurological examination did not reveal any focal deficits. generalized weakness SKIN: No rashes. Assessment and plan: - Perforated gastric ulcer. Status post partial gastrectomy gastrojejunostomy o n 03/17/2021. continues with TPN and tolerating thus far, being started on CLD and NG tube removed -status post EGD showing large penetrating ulcer with large tunneling within the ulcer. Patient underwent distal gastrectomy yesterday -possible acute alcohol withdrawal with some mild tremons noted. Was just informed today from family that patient is a heavy daily drinker and possibly withdrawing. Will start CIWA protocol and monitor closely. -leukocytosis most likely reactive from recent surgery. will monitor and repeat labs -Hypertension -COPD without any acute exacerbation continue with albuterol inhalational treatments -Continued nicotine use: Counseling was provided -moderate protein calorie malnutrition with a bmi of 17.9 -DVT prophylaxis: As per primary service -GI prophylaxis -Full code, no intubation Plan: Recommend to continue with current medication management. Continue IV hydration although patient was receiving a large amount of fluids and blood pressure continues to be elevated. Will continue with Norvasc and lisinopril for now and monitor blood pressure closely. Encouraged oral intake and continuing to wean from TPN and recommend Yasmany wraps from bilateral lower ext remities from the toes up to the knees and elevate lower extremity swelling rest. Will add low-dose IV Lasix and monitor kidney function to monitor electrolytes closely with repeat labs. Family reported that patient drinks daily and possibly withdrawing and will add CIWA and monitor closely. WBC continues to be elevated and will repeat am labs. Continue IV antibiotics. Patient is status post exploratory laparotomy, distal gastrectomy with gastrojejunostomy and being started on clear liquids and NG tube was removed. Continue TPN for now per surgery. Encouraged increased activity as tolerated. Patient is afebrile. Will repeat a.m. labs and continue to monitor closely. Will continue to follow along with surgery during hospitalization. Objective - Vital Signs Vital signs: Vital Signs Temp 98.5 F 03/23/21 03:38 Pulse 100 03/23/21 09:17 Resp 20 03/23/21 03:38 BP 168/75 03/23/21 03:38 Pulse Ox 96 03/23/21 03:38 Intake & Output 03/22/21 03/23/21 03/23/21 18:59 06:59 18:59 Intake Total 1035.3333 1035.3333 Balance 1035.3333 1035.3333 Intake: Intake, IV Titration 1035.3333 1035.3333 Amount Potassium Phosphate 25 1035.3333 1035.3333 mmol Sodium Acetate 30 meq Magnesium Sulfate gm 1 gm Calcium Gluconate 1 gm In Amino Acid 5%-D15w 1,000 ml @ 65 mls/hr IV . BY DURATION [facility] Rx#: [id number] Other: Voiding Method Toilet # Voids 3 3 # Bowel Movements 1 4 - Labs CBC & Chem 7: 03/24/21 08:13 03/24/21 08:13 Labs: Abnormal Lab Results - Last 24 Hours (Table) 03/23/21 Range/Units 04:26 Chloride 108 H (98-107) mmol/L BUN 29 H (7-17) mg/dL Creatinine 0.45 L (0.52-1.04) mg/dL Glucose 128 H (74-99) mg/dL Total Protein 5.2 L (6.3-8.2) g/dL Albumin 2.5 L (3.5-5.0) g/dL Microbiology - Last 24 Hours (Table) 03/17/21 05:45 Stool Culture - Final Stool
[2021-03-24] MEDS: HYDROcodone/APAP 5-325MG 1 EACH TAB PO PRN (19:49)
[2021-03-24] MEDS: traZODone HCL 50 MG TAB PO SCH (19:49)
--- NOTE | 2021-03-24 23:52 | P.PN ---
Subjective Progress Note Date: 03/24/21 - Reason for Consult Hypertension management - History of Present Illness 85-year-old the a pleasant female came in with compensative diffuse abdominal pain sharp in nature along with the nausea has been going on for couple days, patient denied any diarrhea. Patient doesn't have any fever chills doesn't have any leukocytosis patient has a CT of the abdomen which showed some a proximal to the stomach because of which patient was admitted to general surgery and patient is presently on metronidazole and levofloxacin. Concern for peptic ulcer disease and perforation. Patient pain significant improved. Patient blood pressure is bit elevated today. Patient will undergo upper GI endoscopy tomorro w. 03/16/2021 Patient is seen in follow up this morning and continues with abdominal pain. General surgery as attending plans on EGD today and patient is currently NPO. Patient denies any nausea or vomiting. Patient reports to passing gas and having bowel movements and denies blood in the stool. Patient is continued on IV ceftriaxone and flagyl for concern for possible perforation. No new labs today and will repeat in the am. 03/17/2021 Patient is seen and evaluated in follow-up and continues with abdominal pain. Patient underwent EGD yesterday which shows a large ulcer with tunneling and is scheduled to undergo partial gastrectomy with Dr. Alexander. Plans were for surgery on Tuesday although patient is having large amounts of bloody stools and will be going to surgery today. Patient was made nothing by mouth. Risks versus benefits were discussed with the patient and patient is willing to proceed with intervention. Patient is an intermediate risk given her long extensive history of continued tobacco abuse although given the new findings and urgency with bleeding patient should go for surgical intervention today. Patient denies any chest pain or shortness of breath. Patient is afebrile. No reports of nausea or vomiting and patient is nothing by mouth for the procedure. 03/18/2021 Patient is seen in follow up this morning and is status post exploratory laparotomy, distal gastrectomy with gastrojejunostomy and is being closely monitored. Patient is lethargic but easily arousable. Surgical dressing is dry and intact and patient continues with abdominal pain and binder is in place. Patient also continues with NG tube and is NPO requesting ice chips. Dietitian also consulted and patient to receive PICC line to initiate TPN. WBC increased to 16.1 most likely reactive and will monitor closely. Patient is afebrile and denies chest pain or shortness of breath. 03/19/2021 Patient is seen in follow-up today continues to have some abdominal pain although denies any worsening pain. Patient is continued nothing by mouth with NG tube and is receiving TPN. Patient denies any chest pain or shortness of breath. Patient states she does have a cough which is most likely chronic because she is continued ongoing nicotine use. Patient continues on IV ceftriaxone along with Flagyl and will continue. Patient is afebrile. Patient continues to be hypertensive and currently nothing by mouth so will continue with IV hydralazine and monitor closely. Patients potassium mildly low at 3.4 and does have potassium in the TPN and fluids although will replace and repeat labs recommended. 03/20/2021 Patient is seen this morning in follow up today and has had NG tube removed. Patient is more awake and alert today and continues with periods of confusion at times. Per RN, daughter reported to her that patient does drink almost daily and feels she is actively withdrawing. Will add CIWA and monitor closely. Patient also continues with dilaudid and recommend caution against excessive use. Patient denies any chest pain or shortness of breath and is currenly sitting up at the side of the bed on room air. IS at the bedside and encouraged the patient to continue using 10 times every hour while awake. No bowel sounds noted on exam and patient denies passing gas or bowel activity. Patient is being started on clear liquid diet and continues on TPN. 03/21/2021 Patient currently lying in the bed. Awake alert and oriented. Lethargic and drowsy. Status post partial gastrectomy with gastro jejunostomy on 03/17/2021 due to perforated gastric ulcer.. Patient has been afebrile. No complaints of chest pain or worsening shortness of breath. Patient is currently on TPN. Laboratory showed WBC 13.1 hemoglobin 12.1 and platelets 385 BUN 24 and creatinine 0.43 blood pressure is fairly controlled. We will add lisinopril. 03/22/2021 Patient is currently resting in bed. Awake and alert. Lethargic and sleepy. Remains on TPN. Continued on antibiotics above ceftriaxone and Flagyl. Blood pressure is still elevated with SBP in 170s. Patient will be continued on hydralazine IV and Norvasc. Lisinopril will be added. Patient has been afebrile. Currently requiring oxygen at 2 L via nasal cannula and saturating at 92%. Patient is also on full liquid diet. Lab data showed sodium 137 potassium 3.9 chloride 108 BUN 28 and creatinine 0.48 Patient has been afebrile. No nausea vomiting or diarrhea. No chest pain or shortness of breath. No cough or sputum production. 03/23/2021 Patient is seen in follow-up today and being followed closely. Continue to fol low with general surgery and patient is maintained on IV ceftriaxone along with Flagyl. Patient is on TPN although continuing to wean and diet has been started and tolerating thus far. Patient is having gas and bowel movements and patient states they are all loose stools which she appears to have chronically as she does have a history of colitis. Patient with lower extremity edema that is significant and most likely a component of volume overload as patient was receiving IV fluids along with TPN. Patient to be started on low-dose IV Lasix and will monitor intake and output along with electrolytes and kidney functions. Will repeat labs. White count 18.17 and patient is continued on ceftriaxone and Flagyl. Patient is afebrile. Patient denies any worsening abdominal pain. 03/24/2021 Patient is seen and evaluated this morning and denies any further abdominal discomfort and reports to having bowel movements that continue to be loose. Patient is urinating and diuresing well on IV Lasix as patient has continued bilateral lower extremity edema 2+ pitting and is having discomfort and pain of the legs. Will increase IV Lasix to 40 mg twice daily and monitor electrolytes and kidney functions closely. Patient is continued on antibiotics and recommend to continue. Monitor WBC closely. TPN being weaned. Labs: WBC is 13.2, hemoglobin is 13.6 , platelets are 431, sodium is 138, potassium 3.5, BUN is 26, creatinine is 0.47, calcium is 8.7 Review of systems: CONSTITUTIONAL: No fever, no malaise, generalized fatigue. CARDIOVASCULAR: No chest pain, orthopnea, PND, no palpitations, no syncope. PULMONARY: No shortness of breath, no cough, no hemoptysis. GASTROINTESTINAL: no reports of nausea or vomiting. patient is passing gas and having loose stools NEUROLOGICAL: No headaches, no weakness, no numbness. GENITOURINARY: Denies any burning micturition, frequency, or urgency. MUSCULOSKELETAL/RHEUMATOLOGICAL: Reports lower extremity swelling and bruising and painful feet Active Medications Hydrocodone Bitart/Acetaminophen (Hydrocodone/Apap 5-325mg 1 Each Tab) 1 each PO Q4HR PRN PRN Reason: Pain Albuterol/Ipratropium (Ipratropium-Albuterol 3 Ml Neb) 3 ml INHALATION RT-QID PRN PRN Reason: Shortness Of Breath Or Wheezing Last Admin: 03/23/21 09:08 Dose: 3 ml Documented by: Citalopram Hydrobromide (Citalopram Hydrobromide 20 Mg Tab) 40 mg PO DAILY [facility] Last Admin: 03/24/21 07:45 Dose: 40 mg Documented by: Enoxaparin Sodium (Enoxaparin 40 Mg/0.4 Ml Syringe) 40 mg SQ DAILY [facility] Last Admin: 03/24/21 07:46 Dose: 40 mg Documented by: Furosemide (Furosemide 10 Mg/Ml 2 Ml Vial) 40 mg IV Q12HR [facility] Hydralazine HCl (Hydralazine Hcl 20 Mg/Ml 1 Ml Vial) 10 mg IVP Q4HR PRN PRN Reason: Blood Pressure - High Last Admin: 03/22/21 19:36 Dose: 10 mg Documented by: Hydromorphone HCl (Hydromorphone 1 Mg/Ml 1 Ml Syringe) 1 mg IVP Q3HR PRN PRN Reason: Pain Last Admin: 03/22/21 21:37 Dose: 1 mg Documented by: Hydromorphone HCl (Hydromorphone 0.5 Mg/0.5 Ml Syringe) 0.5 mg IVP Q2HR PRN PRN Reason: Moderate Pain Last Admin: 03/23/21 17:27 Dose: 0.5 mg Documented by: Ceftriaxone Sodium 2 gm/ (Sodium Chloride) 50 mls @ 100 mls/hr IVPB Q12HR [facility] Last Admin: 03/24/21 07:46 Dose: 100 mls/hr Documented by: Metronidazole 500 mg/ IV (Solution) 100 mls @ 100 mls/hr IVPB Q6HR [facility] Last Admin: 03/24/21 12:21 Dose: 100 mls/hr Documented by: Ipratropium [place] (Ipratropium 0.5 Mg/2.5 Ml Nebu) 0.5 mg INHALATION RT-QID [facility] Last Admin: 03/24/21 11:48 Dose: 0.5 mg Documented by: Lisinopril (Lisinopril 5 Mg Tab) 5 mg PO DAILY [facility] Last Admin: 03/24/21 07:45 Dose: 5 mg Documented by: Lorazepam (Lorazepam 2 Mg/Ml Inj) 1 mg IV Q2HR PRN PRN Reason: CIWA 8 or 9 Last Admin: 03/23/21 15:57 Dose: 1 mg Documented by: Lorazepam (Lorazepam 2 Mg/Ml Inj) 1 mg IV Q1HR PRN PRN Reason: CIWA 10 to 15 Last Admin: 03/22/21 12:45 Dose: 1 mg Documented by: Lorazepam (Lorazepam 0.5 Mg Tab) 0.5 mg PO Q8HR PRN PRN Reason: Anxiety Last Admin: 03/24/21 10:36 Dose: 0.5 mg Documented by: Naloxone HCl (Naloxone 0.4 Mg/Ml 1 Ml Vial) 0.2 mg IV Q2M PRN PRN Reason: Opioid Reversal Nicotine (Nicotine 14mg/24hr Patch) 1 patch TRANSDERM DAILY [facility] Last Admin: 03/24/21 07:46 Dose: 1 patch Documented by: Ondansetron HCl (Ondansetron 4 Mg/2 Ml Vial) 4 mg IVP Q8HR PRN PRN Reason: Nausea And Vomiting Last Admin: 03/20/21 05:20 Dose: 4 mg Documented by: Pantoprazole Sodium (Pantoprazole 40 Mg/10 Ml Vial) 40 mg IV DAILY [facility] Last Admin: 03/24/21 07:45 Dose: 40 mg Documented by: Sodium Chloride (Sodium Chloride 0.9% Flush 10 Ml Syringe) 10 ml IV Q4HR PRN PRN Reason: PICC Line Sodium Chloride (Sodium Chloride 0.9% Flush 10 Ml Syringe) 10 ml IV WEEKLY [facility] Sodium Chloride (Sodium Chloride 0.9% Flush 10 Ml Syringe) 20 ml IV Q4HR PRN PRN Reason: PICC Line Trazodone HCl (Trazodone Hcl 50 Mg Tab) 50 mg PO HS [facility] Last Admin: 03/23/21 19:40 Dose: 50 mg Documented by: PHYSICAL EXAMINATION: GENERAL: The patient is alert and oriented x3, not in any acute distress. awake today and sitting up at the side of the bed. Thin build, cachetic HEENT: Pupils are round and equally reacting to light. EOMI. No scleral icterus. No conjunctival pallor. Normocephalic, atraumatic. No pharyngeal erythema. No thyromegaly. CARDIOVASCULAR: S1 and S2 present. No murmurs, rubs, or gallops. PULMONARY: Chest is clear to auscultation, no wheezing or crackles. ABDOMEN: Soft, minimal diffuse tenderness, nondistended, normoactive bowel sounds. No palpable organomegaly. abdominal binder noted. MUSCULOSKELETAL: No joint swelling or deformity. EXTREMITIES: No cyanosis, clubbing, extensive bilateral lower extremity 2+ pitting edema noted on the feet that extends up through the thighs with some weeping noted. NEUROLOGICAL: Gross neurological examination did not reveal any focal deficits. generalized weakness SKIN: No rashes. Assessment and plan: -Perforated gastric ulcer. Status post partial gastrectomy gastrojejunostomy on 03/17/2021. continues with TPN and being weaned and tolerating regular diet -status post EGD showing large penetrating ulcer with large tunneling within the ulcer. Patient underwent distal gastrectomy -possible acute alcohol withdrawal with some mild tremons noted. Maintained on CIWA as needed. Not actively withdrawing -leukocytosis most likely reactive from recent surgery. will monitor and repeat labs, trending down -Hypertension -COPD without any acute exacerbation continue with albuterol inhalational treatments -Continued nicotine use: Counseling was provided -moderate protein calorie malnutrition with a bmi of 17.9 -DVT prophylaxis: As per primary service -GI prophylaxis -Full code, no intubation Plan: Recommend to continue with current medication management. Continue lisinopril for now and monitor blood pressure closely. Encouraged oral intake and currently weaning from TPN and recommend Yasmany wraps from bilateral lower extremities from the toes up to the knees and elevate lower extremity swelling rest. Diuresed well on low-dose IV Lasix and will increase to 40mg BID IVP and monitor kidney function to monitor electrolytes closely with repeat labs. WBC continues to be elevated and will repeat am labs. Continue IV antibiotics. Patient is status post exploratory laparotomy, distal gastrectomy with gastrojejunostomy Encouraged increased activity as tolerated. Patient is afebrile. Will repeat a.m. labs and continue to monitor closely. Will continue to follow along with surgery during hospitalization. Objective - Vital Signs Vital signs: Vital Signs Temp 97.5 F L 03/24/21 08:03 Pulse 86 03/24/21 08:03 Resp 16 03/24/21 08:03 BP 146/86 03/24/21 08:03 Pulse Ox 96 03/24/21 08:03 Intake & Output 03/23/21 03/24/21 03/24/21 18:59 06:59 18:59 Intake Total 480 1035.3333 Balance 480 1035.3333 Weight 43.091 kg Intake: Intake, IV Titration 1035.3333 Amount Potassium Phosphate 25 1035.3333 mmol Sodium Acetate 30 meq Magnesium Sulfate gm 1 gm Calcium Gluconate 1 gm In Amino Acid 5%-D15w 1,000 ml @ 65 mls/hr IV . BY DURATION [facility] Rx#: [id number] Oral 480 Other: Voiding Method Toilet # Voids 3 5 - Labs CBC & Chem 7: 03/24/21 08:13 03/24/21 08:13 Labs: Abnormal Lab Results - Last 24 Hours (Table) 03/23/21 03/24/21 Range/Units 04:26 08:13 WBC 18.17 H 13.2 H (4.50-10.00) X 10*3/uL RBC 3.75 L (4.10-5.20) X 10*6/uL Hgb 11.7 L (12.0-15.0) g/dL Hct 35.8 L (37.2-46.3) % Immature Gran # 0.15 H (0.00-0.04) X 10*3/uL Neutrophils # 16.34 H 11.6 H (1.80-7.70) X 10*3/uL Lymphocytes # 0.81 L 0.8 L (0.90-5.00) X 10*3/uL Eosinophils # 0.01 L (0.04-0.35) X 10*3/uL Microbiology - Last 24 Hours (Table) 03/17/21 05:45 Stool Culture - Final Stool
[2021-03-25] MEDS: metroNIDAZOLE-NS PMX 500 MG in SALINE 1 100ML.BAG IVPB SCH ×5 (00:16→23:14)
[2021-03-25 06:18] LABS: Basophils % (A) 0 %; Eosinophils % (A) 0 %; HCT 36.9 % (34.0-46.0); Lymphocytes # (A) 1.2 k/uL (1.0-4.8); Lymphocytes % (A) 9 %; MCH 31.5 pg (25.0-35.0); MCHC 32.6 g/dL (31.0-37.0); MCV 96.7 fL (80.0-100.0); Mean Platelet Volume 7.6; Monocytes # (A) 0.7 k/uL (0-1.0); Monocytes % (A) 5 %; Neutrophils # (A) 11.2 k/uL (1.3-7.7); Neutrophils % (A) 85 %; Platelet Count 403 k/uL (150-450); RBC 3.82 m/uL (3.80-5.40); RDW 12.9 % (11.5-15.5); WBC 13.2 k/uL (3.8-10.6)
[2021-03-25 06:56] LABS: African American GFR (CKD) >90 (>60 ml/min/1.73 sqM); Anion Gap 4 mmol/L; Blood Urea Nitrogen 26 mg/dL (7-17); Calcium 8.5 mg/dL (8.4-10.2); Carbon Dioxide 33 mmol/L (22-30); Chloride 102 mmol/L (98-107); Glucose 77 mg/dL (74-99); Non-African American GFR(CKD) 85 (>60 ml/min/1.73 sqM); Potassium 3.7 mmol/L (3.5-5.1); Sodium 139 mmol/L (137-145)
[2021-03-25] MEDS: lisinopriL 5 MG TAB PO SCH (08:14)
[2021-03-25] MEDS: FUROSEMIDE 10 MG/ML 2 ML VIAL IV SCH (08:14)
[2021-03-25] MEDS: PANTOPRAZOLE 40 MG/10 ML VIAL IV SCH (08:14)
[2021-03-25] MEDS: CITALOPRAM HYDROBROMIDE 20 MG TAB PO SCH (08:14)
[2021-03-25] MEDS: ENOXAPARIN 40 MG/0.4 ML SYRINGE SQ SCH (08:14)
[2021-03-25] MEDS: NICOTINE 14MG/24HR PATCH TRANSDERM SCH (08:14)
[2021-03-25] MEDS: IPRATROPIUM 0.5 MG/2.5 ML NEBU INHALATION SCH ×4 (09:12→19:05)
[2021-03-25] MEDS: ONDANSETRON 4 MG/2 ML VIAL IVP PRN (10:51)
--- NOTE | 2021-03-25 11:09 | CDI ---
Documentation Clarification Form Date: 03/25/2021 10:22:49 AM From: Irene Rodriguez RN CCDS Admit Date: 03/13/2021 06:30:00 PM Patient Name: Chelsea Frederick Visit Number: [id number] Discharge Date: ATTENTION: The Clinical Documentation Specialists (CDI) and [facility] Coding Staff appreciate your assistance in clarifying documentation. Please respond to the clarification below the line at the bottom and electronically sign. The CDI & [facility] Coding staff will review the response and follow-up if needed. Please note: Queries are made part of the Legal Health Record. If you have any questions, please contact the author of this message via ITS. Dr. Lance Alexander Conflicting documentation has been found in the medical record. As attending physician, please provide clarification. Moderate protein calorie malnutrition, Medicine progress notes, 03/20 03/24. Severe protein calorie malnutrition, Surgical progress notes, 03/23 03/24. History/Risk Factors: 85-year-old female presents to the ED with diffuse abdominal pain, sharp in nature along with nausea for a few days. Patient admitted with possible peptic ulcer disease and concerns of perforation. Medical history: Bladder Cancer and Colitis. Medicine Consult, 03/15. Clinical Indicators: Nutritional Assessment 03/16 BMI: 17.9: Nutrition Assessment: Nutrition intake Fair; Percent consumed 50- 75%. Pt NPO. Physical findings: Underweight, Moderate temporalis, Tricep, clavicle muscle wasting. Nutrition Diagnosis: Nutrient Malnutrition, specific nutrient Acute, Severe. Diagnosis #1 Related to abdominal pain, N/V. As evidenced by consuming <50% of nutritional needs > 5 days, > 7.5% weight loss in 3 months. 03/17 Exploratory laparotomy with Distal gastrectomy with gastrojejunostomy. Post operative diagnosis Perforated gastric ulcer with penetration into the lesser sac. Treatment: 03/18 to 03/24 TPN; 03/23 to current Oral Supplement Ensure Breakfast and dinner. Please clarify which diagnosis is most appropriate: [ x ] Severe protein calorie malnutrition [ ] Moderate protein calorie malnutrition [ ] Other (please specify) [ ] Unable to determine (Template Last Revised: April 2020) MTDD
--- NOTE | 2021-03-25 15:03 | P.PN ---
Subjective Progress Note Date: 03/25/21 CHIEF COMPLAINT: Gastric perforation HISTORY OF PRESENT ILLNESS: Patient is status post exploratory laparotomy, distal gastrectomy with gastrojejunostomy. Postop day #8. Patient reports her pain is controlled. She continues to have diarrhea. She is having flatus. Denies any nausea or vomiting. Tolerating regular diet. Afebrile. WBC is 13.2 blood pressures continue to improve. Patient has been weaned off the TPN. Patient seen and examined with Dr. santos PHYSICAL EXAM: VITAL SIGNS: Reviewed. GENERAL: Well-developed in no acute distress. HEENT: No sclera icterus. Extraocular movements grossly intact. Moist buccal mucosa. Head is atraumatic, normocephalic. ABDOMEN: Soft. Mildly distended. Abdominal incision clean dry and intact NEUROLOGIC: Alert and oriented. Cranial nerves II through XII grossly intact. ASSESSMENT: 1. Perforated gastric ulcer with penetration into the lesser sac status post exploratory laparotomy, distal gastrectomy with gastrojejunostomy 2. Hypertension 3. Leukocytosis 4. Severe protein calorie malnutrition PLAN: -Case management to continue to work on discharge planning. Patient will likely require ECF placement. -Anticipating discharge soon -Continue regular diet -Continue pain medication as needed -Continue IV Protonix -Continue antibiotics -Encourage patient to increase activity -Encourage patient to use incentive spirometer -DVT prophylaxis Lovenox Physician [employer] Member note has been reviewed by physician. Signing provider agrees with the documented findings, assessment, and plan of care. Objective - Vital Signs Vital signs: Vital Signs Temp 98.4 F 03/25/21 08:00 Pulse 91 03/25/21 08:15 Resp 18 03/25/21 08:15 BP 144/65 03/25/21 08:00 Pulse Ox 88 L 03/25/21 08:00 Intake & Output 03/24/21 03/25/21 03/25/21 18:59 06:59 18:59 Intake Total 480 1392 Balance 480 1392 Intake: Intake, IV Titration 1112 Amount Mvi, Adult No.4 with Vit 762 K 10 ml Trace (Conc-1Ml/ Dose) 1 ml Potassium Phosphate 25 mmol Sodium Acetate 30 meq Magnesium Sulfate gm 1 gm Calcium Gluconate 1 gm In Amino Acid 5%-D15w 1,000 ml @ 65 mls/hr IV .BY DURATION [facility] Rx#:[id number] cefTRIAXone 2 gm In 50 Sodium Chloride 0.9% 50 ml @ 100 mls/hr IVPB Q12HR [facility] Rx#:[id number]-NS PMX 500 300 mg In Saline 1 100ml.bag @ 100 mls/hr IVPB Q6HR [facility] Rx#:[id number] Oral 480 280 Other: Voiding Method Bedside Commode Bedside Commode Diaper Diaper # Voids 6 # Bowel Movements 1 - Labs CBC & Chem 7: 03/25/21 05:03 03/25/21 05:03 Labs: Abnormal Lab Results - Last 24 Hours (Table) 03/25/21 03/25/21 Range/Units 05:03 05:03 WBC 13.2 H (3.8-10.6) k/uL Neutrophils # 11.2 H (1.3-7.7) k/uL Carbon Dioxide 33 H (22-30) mmol/L BUN 26 H (7-17) mg/dL
[2021-03-25] MEDS: FUROSEMIDE 10 MG/ML 4 ML VIAL IV SCH (15:49)
[2021-03-25] MEDS: traZODone HCL 50 MG TAB PO SCH (19:48)
[2021-03-25] MEDS: HYDROcodone/APAP 5-325MG 1 EACH TAB PO PRN (19:48)
--- NOTE | 2021-03-25 23:09 | P.PN ---
Subjective Progress Note Date: 03/25/21 - Reason for Consult Hypertension management - History of Present Illness 85-year-old the a pleasant female came in with compensative diffuse abdominal pain sharp in nature along with the nausea has been going on for couple days, patient denied any diarrhea. Patient doesn't have any fever chills doesn't have any leukocytosis patient has a CT of the abdomen which showed some a proximal to the stomach because of which patient was admitted to general surgery and patient is presently on metronidazole and levofloxacin. Concern for peptic ulcer disease and perforation. Patient pain significant improved. Patient blood pressure is bit elevated today. Patient will undergo upper GI endoscopy tomorro w. 03/16/2021 Patient is seen in follow up this morning and continues with abdominal pain. General surgery as attending plans on EGD today and patient is currently NPO. Patient denies any nausea or vomiting. Patient reports to passing gas and having bowel movements and denies blood in the stool. Patient is continued on IV ceftriaxone and flagyl for concern for possible perforation. No new labs today and will repeat in the am. 03/17/2021 Patient is seen and evaluated in follow-up and continues with abdominal pain. Patient underwent EGD yesterday which shows a large ulcer with tunneling and is scheduled to undergo partial gastrectomy with Dr. Alexander. Plans were for surgery on Tuesday although patient is having large amounts of bloody stools and will be going to surgery today. Patient was made nothing by mouth. Risks versus benefits were discussed with the patient and patient is willing to proceed with intervention. Patient is an intermediate risk given her long extensive history of continued tobacco abuse although given the new findings and urgency with bleeding patient should go for surgical intervention today. Patient denies any chest pain or shortness of breath. Patient is afebrile. No reports of nausea or vomiting and patient is nothing by mouth for the procedure. 03/18/2021 Patient is seen in follow up this morning and is status post exploratory laparotomy, distal gastrectomy with gastrojejunostomy and is being closely monitored. Patient is lethargic but easily arousable. Surgical dressing is dry and intact and patient continues with abdominal pain and binder is in place. Patient also continues with NG tube and is NPO requesting ice chips. Dietitian also consulted and patient to receive PICC line to initiate TPN. WBC increased to 16.1 most likely reactive and will monitor closely. Patient is afebrile and denies chest pain or shortness of breath. 03/19/2021 Patient is seen in follow-up today continues to have some abdominal pain although denies any worsening pain. Patient is continued nothing by mouth with NG tube and is receiving TPN. Patient denies any chest pain or shortness of breath. Patient states she does have a cough which is most likely chronic because she is continued ongoing nicotine use. Patient continues on IV ceftriaxone along with Flagyl and will continue. Patient is afebrile. Patient continues to be hypertensive and currently nothing by mouth so will continue with IV hydralazine and monitor closely. Patients potassium mildly low at 3.4 and does have potassium in the TPN and fluids although will replace and repeat labs recommended. 03/20/2021 Patient is seen this morning in follow up today and has had NG tube removed. Patient is more awake and alert today and continues with periods of confusion at times. Per RN, daughter reported to her that patient does drink almost daily and feels she is actively withdrawing. Will add CIWA and monitor closely. Patient also continues with dilaudid and recommend caution against excessive use. Patient denies any chest pain or shortness of breath and is currenly sitting up at the side of the bed on room air. IS at the bedside and encouraged the patient to continue using 10 times every hour while awake. No bowel sounds noted on exam and patient denies passing gas or bowel activity. Patient is being started on clear liquid diet and continues on TPN. 03/21/2021 Patient currently lying in the bed. Awake alert and oriented. Lethargic and drowsy. Status post partial gastrectomy with gastro jejunostomy on 03/17/2021 due to perforated gastric ulcer.. Patient has been afebrile. No complaints of chest pain or worsening shortness of breath. Patient is currently on TPN. Laboratory showed WBC 13.1 hemoglobin 12.1 and platelets 385 BUN 24 and creatinine 0.43 blood pressure is fairly controlled. We will add lisinopril. 03/22/2021 Patient is currently resting in bed. Awake and alert. Lethargic and sleepy. Remains on TPN. Continued on antibiotics above ceftriaxone and Flagyl. Blood pressure is still elevated with SBP in 170s. Patient will be continued on hydralazine IV and Norvasc. Lisinopril will be added. Patient has been afebrile. Currently requiring oxygen at 2 L via nasal cannula and saturating at 92%. Patient is also on full liquid diet. Lab data showed sodium 137 potassium 3.9 chloride 108 BUN 28 and creatinine 0.48 Patient has been afebrile. No nausea vomiting or diarrhea. No chest pain or shortness of breath. No cough or sputum production. 03/23/2021 Patient is seen in follow-up today and being followed closely. Continue to fol low with general surgery and patient is maintained on IV ceftriaxone along with Flagyl. Patient is on TPN although continuing to wean and diet has been started and tolerating thus far. Patient is having gas and bowel movements and patient states they are all loose stools which she appears to have chronically as she does have a history of colitis. Patient with lower extremity edema that is significant and most likely a component of volume overload as patient was receiving IV fluids along with TPN. Patient to be started on low-dose IV Lasix and will monitor intake and output along with electrolytes and kidney functions. Will repeat labs. White count 18.17 and patient is continued on ceftriaxone and Flagyl. Patient is afebrile. Patient denies any worsening abdominal pain. 03/24/2021 Patient is seen and evaluated this morning and denies any further abdominal discomfort and reports to having bowel movements that continue to be loose. Patient is urinating and diuresing well on IV Lasix as patient has continued bilateral lower extremity edema 2+ pitting and is having discomfort and pain of the legs. Will increase IV Lasix to 40 mg twice daily and monitor electrolytes and kidney functions closely. Patient is continued on antibiotics and recommend to continue. Monitor WBC closely. TPN being weaned. 03/25/2021 Patient is seen this morning lying in bed comfortably and easily arousable. Patient reports to not having a good nights sleep and has been urinating frequently. Patient requesting foss catheter and will attempt external device and discussed risks versus benefits of indwelling foss catheter and higher risk for infection. Patient continues to tolerate diet with no reports of nausea or vomiting noted. TPN has been discontinued. Patient bilateral lower extremity swelling significantly improved and will continue IV lasix and monitor closely. Will repeat am labs. WBC trending down. Patient continues on IV antibiotics. Labs: WBC is 13.2, hemoglobin is 12.0 , platelets are 403, sodium is 139, potassium 3.7, BUN is 26, creatinine is 0.59, calcium is 8.5 Review of systems: CONSTITUTIONAL: No fever, no malaise, generalized fatigue. CARDIOVASCULAR: No chest pain, orthopnea, PND, no palpitations, no syncope. PULMONARY: No shortness of breath, no cough, no hemoptysis. GASTROINTESTINAL: no reports of nausea or vomiting. patient is passing gas and having loose stools NEUROLOGICAL: No headaches, no weakness, no numbness. GENITOURINARY: Denies any burning micturition, frequency, or urgency. MUSCULOSKELETAL/RHEUMATOLOGICAL: Reports lower extremity swelling with some improvement Active Medications Hydrocodone Bitart/Acetaminophen (Hydrocodone/Apap 5-325mg 1 Each Tab) 1 each PO Q4HR PRN PRN Reason: Pain Last Admin: 03/25/21 19:48 Dose: 1 each Documented by: Albuterol/Ipratropium (Ipratropium-Albuterol 3 Ml Neb) 3 ml INHALATION RT-QID PRN PRN Reason: Shortness Of Breath Or Wheezing Last Admin: 03/23/21 09:08 Dose: 3 ml Documented by: Citalopram Hydrobromide (Citalopram Hydrobromide 20 Mg Tab) 40 mg PO DAILY [facility] Last Admin: 03/25/21 08:14 Dose: 40 mg Documented by: Enoxaparin Sodium (Enoxaparin 40 Mg/0.4 Ml Syringe) 40 mg SQ DAILY [facility] Last Admin: 03/25/21 08:14 Dose: 40 mg Documented by: Furosemide (Furosemide 10 Mg/Ml 4 Ml Vial) 40 mg IV BID@0900,1600 [facility] Last Admin: 03/25/21 15:49 Dose: 40 mg Documented by: Hydralazine HCl (Hydralazine Hcl 20 Mg/Ml 1 Ml Vial) 10 mg IVP Q4HR PRN PRN Reason: Blood Pressure - High Last Admin: 03/22/21 19:36 Dose: 10 mg Documented by: Hydromorphone HCl (Hydromorphone 1 Mg/Ml 1 Ml Syringe) 1 mg IVP Q3HR PRN PRN Reason: Pain Last Admin: 03/22/21 21:37 Dose: 1 mg Documented by: Hydromorphone HCl (Hydromorphone 0.5 Mg/0.5 Ml Syringe) 0.5 mg IVP Q2HR PRN PRN Reason: Moderate Pain Last Admin: 03/23/21 17:27 Dose: 0.5 mg Documented by: Ceftriaxone Sodium 2 gm/ (Sodium Chloride) 50 mls @ 100 mls/hr IVPB Q12HR [facility] Last Admin: 03/25/21 19:48 Dose: 100 mls/hr Documented by: Metronidazole 500 mg/ IV (Solution) 100 mls @ 100 mls/hr IVPB Q6HR [facility] Last Admin: 03/25/21 17:07 Dose: 100 mls/hr Documented by: Ipratropium Fif[place] (Ipratropium 0.5 Mg/2.5 Ml Nebu) 0.5 mg INHALATION RT-QID [facility] Last Admin: 03/25/21 19:05 Dose: 0.5 mg Documented by: Lisinopril (Lisinopril 5 Mg Tab) 5 mg PO DAILY [facility] Last Admin: 03/25/21 08:14 Dose: 5 mg Documented by: Lorazepam (Lorazepam 2 Mg/Ml Inj) 1 mg IV Q2HR PRN PRN Reason: CIWA 8 or 9 Last Admin: 03/23/21 15:57 Dose: 1 mg Documented by: Lorazepam (Lorazepam 2 Mg/Ml Inj) 1 mg IV Q1HR PRN PRN Reason: CIWA 10 to 15 Last Admin: 03/22/21 12:45 Dose: 1 mg Documented by: Lorazepam (Lorazepam 0.5 Mg Tab) 0.5 mg PO Q8HR PRN PRN Reason: Anxiety Last Admin: 03/24/21 10:36 Dose: 0.5 mg Documented by: Naloxone HCl (Naloxone 0.4 Mg/Ml 1 Ml Vial) 0.2 mg IV Q2M PRN PRN Reason: Opioid Reversal Nicotine (Nicotine 14mg/24hr Patch) 1 patch TRANSDERM DAILY [facility] Last Admin: 03/25/21 08:14 Dose: 1 patch Documented by: Ondansetron HCl (Ondansetron 4 Mg/2 Ml Vial) 4 mg IVP Q8HR PRN PRN Reason: Nausea And Vomiting Last Admin: 03/25/21 10:51 Dose: 4 mg Documented by: Pantoprazole Sodium (Pantoprazole 40 Mg/10 Ml Vial) 40 mg IV DAILY [facility] Last Admin: 03/25/21 08:14 Dose: 40 mg Documented by: Sodium Chloride (Sodium Chloride 0.9% Flush 10 Ml Syringe) 10 ml IV Q4HR PRN PRN Reason: PICC Line Sodium Chloride (Sodium Chloride 0.9% Flush 10 Ml Syringe) 10 ml IV WEEKLY [facility] Last Admin: 03/25/21 08:15 Dose: Not Given Documented by: Sodium Chloride (Sodium Chloride 0.9% Flush 10 Ml Syringe) 20 ml IV Q4HR PRN PRN Reason: PICC Line Trazodone HCl (Trazodone Hcl 50 Mg Tab) 50 mg PO HS [facility] Last Admin: 03/25/21 19:48 Dose: 50 mg Documented by: PHYSICAL EXAMINATION: GENERAL: The patient is alert and oriented x3, not in any acute distress. asl eep but easily arousable. Thin build, cachetic HEENT: Pupils are round and equally reacting to light. EOMI. No scleral icterus. No conjunctival pallor. Normocephalic, atraumatic. No pharyngeal erythema. No thyromegaly. CARDIOVASCULAR: S1 and S2 present. No murmurs, rubs, or gallops. PULMONARY: Chest is clear to auscultation, no wheezing or crackles. ABDOMEN: Soft, minimal diffuse tenderness, non-distended, normoactive bowel sounds. No palpable organomegaly. abdominal binder noted. MUSCULOSKELETAL: No joint swelling or deformity. EXTREMITIES: No cyanosis, clubbing, bilateral lower extremity edema noted on the feet that extends up through the thighs with significant improvement noted. NEUROLOGICAL: Gross neurological examination did not reveal any focal deficits. generalized weakness SKIN: No rashes. Assessment and plan: -Perforated gastric ulcer. Status post partial gastrectomy gastrojejunostomy on 03/17/2021. tolerating regular diet -status post EGD showing large penetrating ulcer with large tunneling within the ulcer. Patient underwent distal gastrectomy -possible acute alcohol withdrawal. Maintained on CIWA as needed. Not actively withdrawing -leukocytosis most likely reactive from recent surgery. will monitor and repeat labs, trending down -Hypertension -COPD without any acute exacerbation continue with albuterol inhalational treatments -Continued nicotine use: Counseling was provided -moderate protein calorie malnutrition with a bmi of 17.9 -DVT prophylaxis: As per primary service -GI prophylaxis -Full code, no intubation Plan: Recommend to continue with current medication management. Continue lisinopril for now and monitor blood pressure closely. Encouraged oral intake and has been weaned from TPN. Recommend Yasmany wraps from bilateral lower extremities from the toes up to the knees and elevate lower extremity swelling rest. REcommend to continue Lasix 40mg BID IVP and monitor kidney function to monitor electrolytes closely with repeat labs. WBC continues to be elevated and will repeat am labs. Continue IV antibiotics. Patient is status post exploratory laparotomy, distal gastrectomy with gastrojejunostomy. 13.2 again today. Patient is afebrile. Encouraged increased activity as tolerated. Incentive spirometer at the bedside and encouraged the patient to use at least 10 times every hour while awake. Will repeat a.m. labs and continue to monitor closely. Will continue to follow along with surgery during hospitalization. Social work and PT/OT following and possible ECF being planned. Objective - Vital Signs Vital signs: Vital Signs Temp 98.4 F 03/25/21 08:00 Pulse 91 03/25/21 08:00 Resp 18 03/25/21 08:00 BP 144/65 03/25/21 08:00 Pulse Ox 88 L 03/25/21 08:00 Intake & Output 03/24/21 03/25/21 03/25/21 18:59 06:59 18:59 Intake Total 480 1392 Balance 480 1392 Intake: Intake, IV Titration 1112 Amount Mvi, Adult No.4 with Vit 762 K 10 ml Trace (Conc-1Ml/ Dose) 1 ml Potassium Phosphate 25 mmol Sodium Acetate 30 meq Magnesium Sulfate gm 1 gm Calcium Gluconate 1 gm In Amino Acid 5%-D15w 1,000 ml @ 65 mls/hr IV .BY DURATION [facility] Rx#:[id number] cefTRIAXone 2 gm In 50 Sodium Chloride 0.9% 50 ml @ 100 mls/hr IVPB Q12HR [facility] Rx#:[id number] metroNIDAZOLE-NS PMX 500 300 mg In Saline 1 100ml.bag @ 100 mls/hr IVPB Q6HR [facility] Rx#:[id number] Oral 480 280 Other: Voiding Method Bedside Commode Diaper # Voids 6 # Bowel Movements 1 - Labs CBC & Chem 7: 03/25/21 05:03 03/25/21 05:03 Labs: Abnormal Lab Results - Last 24 Hours (Table) 03/24/21 03/25/21 03/25/21 Range/Units 08:13 05:03 05:03 WBC 13.2 H (3.8-10.6) k/uL Neutrophils # 11.2 H (1.3-7.7) k/uL Carbon Dioxide 31 H 33 H (22-30) mmol/L BUN 26 H 26 H (7-17) mg/dL Creatinine 0.47 L (0.52-1.04) mg/dL Glucose 106 H (74-99) mg/dL
[2021-03-26] MEDS: LORazepam 0.5 MG TAB PO PRN (01:08)
[2021-03-26] MEDS: metroNIDAZOLE-NS PMX 500 MG in SALINE 1 100ML.BAG IVPB SCH ×3 (05:46→17:37)
[2021-03-26 06:21] LABS: Basophils % (A) 0 %; Eosinophils # (A) 0.1 k/uL (0-0.7); Eosinophils % (A) 1 %; HGB 10.9 gm/dL (11.4-16.0); Lymphocytes # (A) 0.8 k/uL (1.0-4.8); Lymphocytes % (A) 8 %; MCV 96.9 fL (80.0-100.0); Mean Platelet Volume 7.5; Monocytes # (A) 0.7 k/uL (0-1.0); Monocytes % (A) 6 %; Neutrophils # (A) 8.7 k/uL (1.3-7.7); Neutrophils % (A) 84 %; Platelet Count 372 k/uL (150-450); RBC 3.41 m/uL (3.80-5.40); RDW 12.9 % (11.5-15.5); WBC 10.4 k/uL (3.8-10.6)
[2021-03-26 06:41] LABS: African American GFR (CKD) >90 (>60 ml/min/1.73 sqM); Anion Gap 0 mmol/L; Blood Urea Nitrogen 22 mg/dL (7-17); Calcium 7.9 mg/dL (8.4-10.2); Carbon Dioxide 32 mmol/L (22-30); Chloride 103 mmol/L (98-107); Glucose 75 mg/dL (74-99); Non-African American GFR(CKD) 84 (>60 ml/min/1.73 sqM); Sodium 135 mmol/L (137-145)
[2021-03-26 06:57] LABS: Potassium 2.7 mmol/L (3.5-5.1)
[2021-03-26] MEDS ORDERED: Potassium Replacement Protocol 1 EACH MISC MISCELLANE PRN (07:28)
[2021-03-26] MEDS: IPRATROPIUM 0.5 MG/2.5 ML NEBU INHALATION SCH ×4 (08:02→21:18)
[2021-03-26] MEDS: FUROSEMIDE 10 MG/ML 4 ML VIAL IV SCH ×2 (08:07→16:27)
[2021-03-26] MEDS: PANTOPRAZOLE 40 MG/10 ML VIAL IV SCH (08:07)
[2021-03-26] MEDS: HYDROcodone/APAP 5-325MG 1 EACH TAB PO PRN (08:11)
[2021-03-26] MEDS: ENOXAPARIN 40 MG/0.4 ML SYRINGE SQ SCH (08:43)
[2021-03-26] MEDS: NICOTINE 14MG/24HR PATCH TRANSDERM SCH (08:44)
[2021-03-26] MEDS: CITALOPRAM HYDROBROMIDE 20 MG TAB PO SCH (08:44)
[2021-03-26] MEDS: lisinopriL 5 MG TAB PO SCH (08:44)
[2021-03-26] MEDS: POTASSIUM CHLORIDE ER 20 MEQ TAB.ER PO SCH ×3 (08:44→09:59)
[2021-03-26] MEDS ORDERED: HYDROmorphone 1 MG/ML 1 ML SYRINGE IVP PRN (12:02)
--- NOTE | 2021-03-26 13:14 | P.PN ---
Subjective Progress Note Date: 03/26/21 CHIEF COMPLAINT: Gastric perforation HISTORY OF PRESENT ILLNESS: Patient is status post exploratory laparotomy, distal gastrectomy with gastrojejunostomy. Postop day #9. Patient reports her pain is controlled. She is sitting up at the side of bed. She is tolerating diet eating small amount of her meals. She is drinking her insurers. No diarrhea reported for today. Last bowel movement was yesterday. Denies any nausea vomiting. White count has normalized to 10.4 hemoglobin is 10.9 potassium is low at 2.7 and being replaced. Currently on regular diet. Patient is planning on being discharged home with home care. She has had some improvement in her lower extremity edema. Patient seen and examined with Dr. santos PHYSICAL EXAM: VITAL SIGNS: Reviewed. GENERAL: Well-developed in no acute distress. HEENT: No sclera icterus. Extraocular movements grossly intact. Moist buccal mucosa. Head is atraumatic, normocephalic. ABDOMEN: Soft. Mildly distended. Abdominal incision clean dry and intact NEUROLOGIC: Alert and oriented. Cranial nerves II through XII grossly intact. ASSESSMENT: 1. Perforated gastric ulcer with penetration into the lesser sac status post exploratory laparotomy, distal gastrectomy with gastrojejunostomy 2. Hypertension 3. Leukocytosis 4. Severe protein calorie malnutrition 5. Hypokalemia PLAN: -Possible discharge home tomorrow with home care -Continue to correct potassium. Discussed with medicine service. -Continue regular diet -Continue pain medication as needed -Continue IV Protonix -Continue antibiotics -Encourage patient to increase activity -Encourage patient to use incentive spirometer -DVT prophylaxis Lovenox Physician [facility] Staff note has been reviewed by physician. Signing provider agrees with the documented findings, assessment, and plan of care. Objective - Vital Signs Vital signs: Vital Signs Temp 98.8 F 03/26/21 07:57 Pulse 76 03/26/21 11:39 Resp 16 03/26/21 07:57 BP 135/76 03/26/21 07:57 Pulse Ox 91 L 03/26/21 07:57 Intake & Output 03/25/21 03/26/21 03/26/21 18:59 06:59 18:59 Intake Total 730 236 Balance 730 236 Intake: Intake, IV Titration 250 Amount cefTRIAXone 2 gm In 50 Sodium Chloride 0.9% 50 ml @ 100 mls/hr IVPB Q12HR [facility] Rx#:[id number] metroNIDAZOLE-NS PMX 500 200 mg In Saline 1 100ml.bag @ 100 mls/hr IVPB Q6HR [facility] Rx#:[id number] Oral 480 236 Other: Voiding Method Bedside Commode Bedside Commode Bedside Commode Diaper Diaper Diaper # Voids 1 2 - Labs CBC & Chem 7: 03/26/21 05:23 03/26/21 05:23 Labs: Abnormal Lab Results - Last 24 Hours (Table) 03/26/21 03/26/21 Range/Units 05:23 05:23 RBC 3.41 L (3.80-5.40) m/uL Hgb 10.9 L (11.4-16.0) gm/dL Hct 33.0 L (34.0-46.0) % Neutrophils # 8.7 H (1.3-7.7) k/uL Lymphocytes # 0.8 L (1.0-4.8) k/uL Sodium 135 L (137-145) mmol/L Potassium 2.7 L* (3.5-5.1) mmol/L Carbon Dioxide 32 H (22-30) mmol/L BUN 22 H (7-17) mg/dL Calcium 7.9 L (8.4-10.2) mg/dL
[2021-03-26] MEDS: traZODone HCL 50 MG TAB PO SCH (20:56)
[2021-03-27] MEDS ORDERED: POTASSIUM CHLORIDE ER 20 MEQ TAB.ER PO ONE (00:13)
--- NOTE | 2021-03-27 00:23 | P.PN ---
Subjective Progress Note Date: 03/26/21 - Reason for Consult Hypertension management - History of Present Illness 85-year-old the a pleasant female came in with compensative diffuse abdominal pain sharp in nature along with the nausea has been going on for couple days, patient denied any diarrhea. Patient doesn't have any fever chills doesn't have any leukocytosis patient has a CT of the abdomen which showed some a proximal to the stomach because of which patient was admitted to general surgery and patient is presently on metronidazole and levofloxacin. Concern for peptic ulcer disease and perforation. Patient pain significant improved. Patient blood pressure is bit elevated today. Patient will undergo upper GI endoscopy tomorro w. 03/16/2021 Patient is seen in follow up this morning and continues with abdominal pain. General surgery as attending plans on EGD today and patient is currently NPO. Patient denies any nausea or vomiting. Patient reports to passing gas and having bowel movements and denies blood in the stool. Patient is continued on IV ceftriaxone and flagyl for concern for possible perforation. No new labs today and will repeat in the am. 03/17/2021 Patient is seen and evaluated in follow-up and continues with abdominal pain. Patient underwent EGD yesterday which shows a large ulcer with tunneling and is scheduled to undergo partial gastrectomy with Dr. Alexander. Plans were for surgery on Tuesday although patient is having large amounts of bloody stools and will be going to surgery today. Patient was made nothing by mouth. Risks versus benefits were discussed with the patient and patient is willing to proceed with intervention. Patient is an intermediate risk given her long extensive history of continued tobacco abuse although given the new findings and urgency with bleeding patient should go for surgical intervention today. Patient denies any chest pain or shortness of breath. Patient is afebrile. No reports of nausea or vomiting and patient is nothing by mouth for the procedure. 03/18/2021 Patient is seen in follow up this morning and is status post exploratory laparotomy, distal gastrectomy with gastrojejunostomy and is being closely monitored. Patient is lethargic but easily arousable. Surgical dressing is dry and intact and patient continues with abdominal pain and binder is in place. Patient also continues with NG tube and is NPO requesting ice chips. Dietitian also consulted and patient to receive PICC line to initiate TPN. WBC increased to 16.1 most likely reactive and will monitor closely. Patient is afebrile and denies chest pain or shortness of breath. 03/19/2021 Patient is seen in follow-up today continues to have some abdominal pain although denies any worsening pain. Patient is continued nothing by mouth with NG tube and is receiving TPN. Patient denies any chest pain or shortness of breath. Patient states she does have a cough which is most likely chronic because she is continued ongoing nicotine use. Patient continues on IV ceftriaxone along with Flagyl and will continue. Patient is afebrile. Patient continues to be hypertensive and currently nothing by mouth so will continue with IV hydralazine and monitor closely. Patients potassium mildly low at 3.4 and does have potassium in the TPN and fluids although will replace and repeat labs recommended. 03/20/2021 Patient is seen this morning in follow up today and has had NG tube removed. Patient is more awake and alert today and continues with periods of confusion at times. Per RN, daughter reported to her that patient does drink almost daily and feels she is actively withdrawing. Will add CIWA and monitor closely. Patient also continues with dilaudid and recommend caution against excessive use. Patient denies any chest pain or shortness of breath and is currenly sitting up at the side of the bed on room air. IS at the bedside and encouraged the patient to continue using 10 times every hour while awake. No bowel sounds noted on exam and patient denies passing gas or bowel activity. Patient is being started on clear liquid diet and continues on TPN. 03/21/2021 Patient currently lying in the bed. Awake alert and oriented. Lethargic and drowsy. Status post partial gastrectomy with gastro jejunostomy on 03/17/2021 due to perforated gastric ulcer.. Patient has been afebrile. No complaints of chest pain or worsening shortness of breath. Patient is currently on TPN. Laboratory showed WBC 13.1 hemoglobin 12.1 and platelets 385 BUN 24 and creatinine 0.43 blood pressure is fairly controlled. We will add lisinopril. 03/22/2021 Patient is currently resting in bed. Awake and alert. Lethargic and sleepy. Remains on TPN. Continued on antibiotics above ceftriaxone and Flagyl. Blood pressure is still elevated with SBP in 170s. Patient will be continued on hydralazine IV and Norvasc. Lisinopril will be added. Patient has been afebrile. Currently requiring oxygen at 2 L via nasal cannula and saturating at 92%. Patient is also on full liquid diet. Lab data showed sodium 137 potassium 3.9 chloride 108 BUN 28 and creatinine 0.48 Patient has been afebrile. No nausea vomiting or diarrhea. No chest pain or shortness of breath. No cough or sputum production. 03/23/2021 Patient is seen in follow-up today and being followed closely. Continue to fol low with general surgery and patient is maintained on IV ceftriaxone along with Flagyl. Patient is on TPN although continuing to wean and diet has been started and tolerating thus far. Patient is having gas and bowel movements and patient states they are all loose stools which she appears to have chronically as she does have a history of colitis. Patient with lower extremity edema that is significant and most likely a component of volume overload as patient was receiving IV fluids along with TPN. Patient to be started on low-dose IV Lasix and will monitor intake and output along with electrolytes and kidney functions. Will repeat labs. White count 18.17 and patient is continued on ceftriaxone and Flagyl. Patient is afebrile. Patient denies any worsening abdominal pain. 03/24/2021 Patient is seen and evaluated this morning and denies any further abdominal discomfort and reports to having bowel movements that continue to be loose. Patient is urinating and diuresing well on IV Lasix as patient has continued bilateral lower extremity edema 2+ pitting and is having discomfort and pain of the legs. Will increase IV Lasix to 40 mg twice daily and monitor electrolytes and kidney functions closely. Patient is continued on antibiotics and recommend to continue. Monitor WBC closely. TPN being weaned. 03/25/2021 Patient is seen this morning lying in bed comfortably and easily arousable. Patient reports to not having a good nights sleep and has been urinating frequently. Patient requesting foss catheter and will attempt external device and discussed risks versus benefits of indwelling foss catheter and higher risk for infection. Patient continues to tolerate diet with no reports of nausea or vomiting noted. TPN has been discontinued. Patient bilateral lower extremity swelling significantly improved and will continue IV lasix and monitor closely. Will repeat am labs. WBC trending down. Patient continues on IV antibiotics. 03/26/2021 Patient evaluated this morning and sitting up at the side of the bed in no acute distress. Patient is tolerating diet and denies any abdominal pain. Patient maintained on IV lasix 40mg bid and will transition to oral lasix daily for a few days to assist with lower extremity edema. Swelling continues to improve. Patient needs encouragement to elevate lower extremities at rest. Potassium is low today at 2.7 and will replace and repeat am labs. WBC trending down as well. Patient is afebrile. Labs: WBC is 10.4, hemoglobin is 10.9 , platelets are 372, sodium is 135, potassium 2.7, BUN is 22, creatinine is 0.61, calcium is 7.9 Review of systems: CONSTITUTIONAL: No fever, no malaise, generalized fatigue. CARDIOVASCULAR: No chest pain, orthopnea, PND, no palpitations, no syncope. PULMONARY: No shortness of breath, no cough, no hemoptysis. GASTROINTESTINAL: no reports of nausea or vomiting. patient is passing gas and having loose stools NEUROLOGICAL: No headaches, no weakness, no numbness. GENITOURINARY: Denies any burning micturition, frequency, or urgency. MUSCULOSKELETAL/RHEUMATOLOGICAL: Reports lower extremity swelling with some improvement Active Medications Hydrocodone Bitart/Acetaminophen (Hydrocodone/Apap 5-325mg 1 Each Tab) 1 each PO Q4HR PRN PRN Reason: Pain Last Admin: 03/26/21 08:11 Dose: 1 each Documented by: Albuterol/Ipratropium (Ipratropium-Albuterol 3 Ml Neb) 3 ml INHALATION RT-QID PRN PRN Reason: Shortness Of Breath Or Wheezing Last Admin: 03/23/21 09:08 Dose: 3 ml Documented by: Citalopram Hydrobromide (Citalopram Hydrobromide 20 Mg Tab) 40 mg PO DAILY [facility] Last Admin: 03/26/21 08:44 Dose: 40 mg Documented by: Enoxaparin Sodium (Enoxaparin 40 Mg/0.4 Ml Syringe) 40 mg SQ DAILY [facility] Last Admin: 03/26/21 08:43 Dose: 40 mg Documented by: Furosemide (Furosemide 40 Mg Tab) 40 mg PO DAILY [facility] Hydralazine HCl (Hydralazine Hcl 20 Mg/Ml 1 Ml Vial) 10 mg IVP Q4HR PRN PRN Reason: Blood Pressure - High Last Admin: 03/22/21 19:36 Dose: 10 mg Documented by: Hydromorphone HCl (Hydromorphone 1 Mg/Ml 1 Ml Syringe) 1 mg IVP Q3HR PRN PRN Reason: Pain Last Admin: 03/22/21 21:37 Dose: 1 mg Documented by: Hydromorphone HCl (Hydromorphone 1 Mg/Ml 1 Ml Syringe) 0.5 mg IVP Q2HR PRN PRN Reason: Moderate Pain Ceftriaxone Sodium 2 gm/ (Sodium Chloride) 50 mls @ 100 mls/hr IVPB Q12HR [facility] Last Admin: 03/26/21 20:55 Dose: 100 mls/hr Documented by: Metronidazole 500 mg/ IV (Solution) 100 mls @ 100 mls/hr IVPB Q6HR [facility] Last Admin: 03/26/21 17:37 Dose: 100 mls/hr Documented by: Ipratropium [place] (Ipratropium 0.5 Mg/2.5 Ml Nebu) 0.5 mg INHALATION RT-QID [facility] Last Admin: 03/26/21 21:18 Dose: Not Given Documented by: Lisinopril (Lisinopril 5 Mg Tab) 5 mg PO DAILY [facility] Last Admin: 03/26/21 08:44 Dose: 5 mg Documented by: Lorazepam (Lorazepam 2 Mg/Ml Inj) 1 mg IV Q2HR PRN PRN Reason: CIWA 8 or 9 Last Admin: 03/23/21 15:57 Dose: 1 mg Documented by: Lorazepam (Lorazepam 2 Mg/Ml Inj) 1 mg IV Q1HR PRN PRN Reason: CIWA 10 to 15 Last Admin: 03/22/21 12:45 Dose: 1 mg Documented by: Lorazepam (Lorazepam 0.5 Mg Tab) 0.5 mg PO Q8HR PRN PRN Reason: Anxiety Last Admin: 03/26/21 01:08 Dose: 0.5 mg Documented by: Miscellaneous Information (Potassium Replacement Protocol 1 Each Misc) 1 each MISCELLANE DAILY PRN; Protocol PRN Reason: Per Protocol Naloxone HCl (Naloxone 0.4 Mg/Ml 1 Ml Vial) 0.2 mg IV Q2M PRN PRN Reason: Opioid Reversal Nicotine (Nicotine 14mg/24hr Patch) 1 patch TRANSDERM DAILY [facility] Last Admin: 03/26/21 08:44 Dose: 1 patch Documented by: Ondansetron HCl (Ondansetron 4 Mg/2 Ml Vial) 4 mg IVP Q8HR PRN PRN Reason: Nausea And Vomiting Last Admin: 03/25/21 10:51 Dose: 4 mg Documented by: Pantoprazole Sodium (Pantoprazole 40 Mg/10 Ml Vial) 40 mg IV DAILY [facility] Last Admin: 03/26/21 08:07 Dose: 40 mg Documented by: Potassium Chloride (Potassium Chloride Er 20 Meq Tab.Er) 40 meq PO ONCE STA Stop: 03/27/21 00:14 Sodium Chloride (Sodium Chloride 0.9% Flush 10 Ml Syringe) 10 ml IV Q4HR PRN PRN Reason: PICC Line Sodium Chloride (Sodium Chloride 0.9% Flush 10 Ml Syringe) 10 ml IV WEEKLY [facility] Last Admin: 03/25/21 08:15 Dose: Not Given Documented by: Sodium Chloride (Sodium Chloride 0.9% Flush 10 Ml Syringe) 20 ml IV Q4HR PRN PRN Reason: PICC Line Trazodone HCl (Trazodone Hcl 50 Mg Tab) 50 mg PO HS [facility] Last Admin: 03/26/21 20:56 Dose: 50 mg Documented by: PHYSICAL EXAMINATION: GENERAL: The patient is alert and oriented x3, not in any acute distress. Thin build, cachetic HEENT: Pupils are round and equally reacting to light. EOMI. No scleral icterus. No conjunctival pallor. Normocephalic, atraumatic. No pharyngeal erythema. No thyromegaly. CARDIOVASCULAR: S1 and S2 present. No murmurs, rubs, or gallops. PULMONARY: Chest is clear to auscultation, no wheezing or crackles. ABDOMEN: Soft, no tenderness, non-distended, normoactive bowel sounds. No palpable organomegaly. abdominal binder noted. MUSCULOSKELETAL: No joint swelling or deformity. EXTREMITIES: No cyanosis, clubbing, bilateral lower extremity edema noted on the feet that extends up through the thighs with significant improvement noted. NEUROLOGICAL: Gross neurological examination did not reveal any focal deficits. generalized weakness SKIN: No rashes. Assessment and plan: -Perforated gastric ulcer. Status post partial gastrectomy gastrojejunostomy on 03/17/2021. tolerating regular diet -status post EGD showing large penetrating ulcer with large tunneling within the ulcer. Patient underwent distal gastrectomy -possible acute alcohol withdrawal. Maintained on CIWA as needed. Not actively withdrawing -leukocytosis most likely reactive from recent surgery. improved -hypokalemia, 2.7 today and will replace and repeat labs -Hypertension -COPD without any acute exacerbation continue with albuterol inhalational treatments -Continued nicotine use: Counseling was provided -moderate protein calorie malnutrition with a bmi of 17.9 -DVT prophylaxis: As per primary service -GI prophylaxis -Full code, no intubation Plan: Recommend to continue with current medication management. Continue lisinopril and monitor blood pressure closely. Encouraged oral intake and has been tolerating regular diet. Recommend Yasmany wraps from bilateral lower extremities from the toes up to the knees and elevate lower extremity swelling rest. transition to oral lasix and may need a few days on discharge for the swelling which is improved. May need potassium supplements for a few days as well. Potassium rich diet encouraged Potassium found to be 2.7 today and replacing and repeat labs in am ordered. WBC improved. Continue IV antibiotics. Patient is status post exploratory laparotomy, distal gastrectomy with gastrojejunostomy. Patient is afebrile. Encouraged increased activity as tolerated. Incentive spirometer at the bedside and encouraged the patient to use at least 10 times every hour while awake. Will repeat a.m. labs and continue to monitor closely. Will continue to follow along with surgery during hospitalization. Social work and PT/OT following and patient will likely go home with home care. Objective - Vital Signs Vital signs: Vital Signs Temp 98.8 F 03/26/21 07:57 Pulse 82 03/26/21 08:17 Resp 16 03/26/21 07:57 BP 135/76 03/26/21 07:57 Pulse Ox 91 L 03/26/21 07:57 Intake & Output 03/25/21 03/26/21 03/26/21 18:59 06:59 18:59 Intake Total 730 236 Balance 730 236 Intake: Intake, IV Titration 250 Amount cefTRIAXone 2 gm In 50 Sodium Chloride 0.9% 50 ml @ 100 mls/hr IVPB Q12HR [facility] Rx#:[id number] metroNIDAZOLE-NS PMX 500 200 mg In Saline 1 100ml.bag @ 100 mls/hr IVPB Q6HR [facility] Rx#:[id number] Oral 480 236 Other: Voiding Method Bedside Commode Bedside Commode Bedside Commode Diaper Diaper Diaper # Voids 1 2 - Labs CBC & Chem 7: 03/26/21 05:23 03/26/21 05:23 Labs: Abnormal Lab Results - Last 24 Hours (Table) 03/26/21 03/26/21 Range/Units 05:23 05:23 RBC 3.41 L (3.80-5.40) m/uL Hgb 10.9 L (11.4-16.0) gm/dL Hct 33.0 L (34.0-46.0) % Neutrophils # 8.7 H (1.3-7.7) k/uL Lymphocytes # 0.8 L (1.0-4.8) k/uL Sodium 135 L (137-145) mmol/L Potassium 2.7 L* (3.5-5.1) mmol/L Carbon Dioxide 32 H (22-30) mmol/L BUN 22 H (7-17) mg/dL Calcium 7.9 L (8.4-10.2) mg/dL
[2021-03-27] MEDS ORDERED: POTASSIUM CHLORIDE ER 20 MEQ TAB.ER PO STA (00:25)
[2021-03-27] MEDS: metroNIDAZOLE-NS PMX 500 MG in SALINE 1 100ML.BAG IVPB SCH ×4 (00:31→17:33)
[2021-03-27] MEDS: LORazepam 0.5 MG TAB PO PRN (02:16)
[2021-03-27 06:06] LABS: Basophils % (A) 0 %; Eosinophils # (A) 0.1 k/uL (0-0.7); Eosinophils % (A) 1 %; HCT 34.9 % (34.0-46.0); HGB 11.6 gm/dL (11.4-16.0); Lymphocytes # (A) 0.8 k/uL (1.0-4.8); Lymphocytes % (A) 9 %; MCHC 33.2 g/dL (31.0-37.0); MCV 96.3 fL (80.0-100.0); Mean Platelet Volume 7.3; Monocytes # (A) 0.5 k/uL (0-1.0); Monocytes % (A) 5 %; Neutrophils # (A) 7.7 k/uL (1.3-7.7); Neutrophils % (A) 83 %; Platelet Count 399 k/uL (150-450); RBC 3.62 m/uL (3.80-5.40); RDW 13.7 % (11.5-15.5); WBC 9.3 k/uL (3.8-10.6)
[2021-03-27 06:16] LABS: African American GFR (CKD) >90 (>60 ml/min/1.73 sqM); Anion Gap 1 mmol/L; Blood Urea Nitrogen 21 mg/dL (7-17); Carbon Dioxide 32 mmol/L (22-30); Chloride 101 mmol/L (98-107); Glucose 80 mg/dL (74-99); Non-African American GFR(CKD) 82 (>60 ml/min/1.73 sqM); Potassium 3.5 mmol/L (3.5-5.1); Sodium 134 mmol/L (137-145)
[2021-03-27] MEDS: IPRATROPIUM 0.5 MG/2.5 ML NEBU INHALATION SCH ×4 (08:31→20:24)
[2021-03-27] MEDS ORDERED: FUROSEMIDE 40 MG TAB PO SCH (09:00)
[2021-03-27] MEDS: ENOXAPARIN 40 MG/0.4 ML SYRINGE SQ SCH (09:01)
[2021-03-27] MEDS: CITALOPRAM HYDROBROMIDE 20 MG TAB PO SCH (09:01)
[2021-03-27] MEDS: lisinopriL 5 MG TAB PO SCH (09:02)
[2021-03-27] MEDS: NICOTINE 14MG/24HR PATCH TRANSDERM SCH (09:02)
[2021-03-27] MEDS: PANTOPRAZOLE 40 MG/10 ML VIAL IV SCH (11:53)
--- NOTE | 2021-03-27 14:26 | P.DS ---
Providers Date of admission: 03/13/21 18:30 Expected date of discharge: 03/27/21 Attending physician: Lance Alexander Consults: 03/15/21 11:31 Consult Physician Routine Consulting Provider: Bj Gonzalez Consult Reason/Comments: medical management Do you want consulting provider notified?: Yes Primary care physician: Yina Mancuso [place] [facility] Course: Discharge diagnosis 1. Perforated gastric ulcer with penetration into the lesser sac status post exploratory laparotomy, distal gastrectomy with gastrojejunostomy 2. Hypertension 3. Leukocytosis 4. Severe protein calorie malnutrition 5. Hypokalemia 6. Daily alcohol use 7. Bilateral lower extremity edema followed by medicine service. Discharged with oral Lasix per medicine service Hospital course This 85-year-old female who was transferred to the hospital for complaints of epigastric pain. Apparently her CAT scan showed some inflammatory changes around stomach. Patient had a computed tomography scan of abdomen and pelvis done with oral and IV contrast and was suspicious for gastric ulcer. Patient had EGD on 03/16/2021 showing a large penetrating ulcer of the antrum with tunnel. Patient status post exploratory laparotomy, distal gastrectomy with gastrojejunostomy for perforated gastric ulcer with penetration into the lesser sac. Patient's pain is controlled. She is tolerating diet. She is up and ambulating. She's afebrile. Her pain is controlled. Incision site clean dry and intact. She is stable for discharge. Please refer to chart for any further details. Physician Door Trimmer note has been reviewed by physician. Signing provider agrees with the documented findings, assessment, and plan of care. Patient Condition at Discharge: Stable Plan - Discharge Summary Discharge Rx Participant: No New Discharge Prescriptions: New Potassium Chloride [Klor-Con 20] 20 meq PO DAILY #30 tab Furosemide [Lasix] 40 mg PO DAILY #30 tab Pantoprazole [Protonix] 40 mg PO AC-BRKFST #30 tab HYDROcodone/APAP 5-325MG [[place] 5-325] 1 tab PO Q6HR PRN 3 Days #12 tab PRN Reason: Pain lisinopriL [Zestril] 5 mg PO DAILY #30 tab Continue traZODone HCL 50 mg PO HS Budesonide [Budesonide EC] 3 mg PO DAILY Citalopram Hydrobromide [CeleXA] 40 mg PO DAILY Multivit-Min/Iron/Folic/Lutein [Centrum Silver Women Tablet] 1 tab PO DAILY Cholecalciferol [Vitamin D3 (25 Mcg = 1000 Iu)] 50 mcg PO DAILY Spiriva Respimat 1.25 Mcg/Act Inhaler 1 puff INHALATION RT-DAILY Cyanocobalamin (Vitamin B-12) [Vitamin B-12] 1,000 mcg PO DAILY Discharge Medication List Budesonide [Budesonide EC] 3 mg PO DAILY 03/13/21 [History] Cholecalciferol [Vitamin D3 (25 Mcg = 1000 Iu)] 50 mcg PO DAILY 03/13/21 [History] Citalopram Hydrobromide [CeleXA] 40 mg PO DAILY 03/13/21 [History] Cyanocobalamin (Vitamin B-12) [Vitamin B-12] 1,000 mcg PO DAILY 03/13/21 [History] Multivit-Min/Iron/Folic/Lutein [Centrum Silver Women Tablet] 1 tab PO DAILY 03/13/21 [History] Spiriva Respimat 1.25 Mcg/Act Inhaler 1 puff INHALATION RT-DAILY 03/13/21 [History] traZODone HCL 50 mg PO HS 03/13/21 [History] Furosemide [Lasix] 40 mg PO DAILY #30 tab 03/27/21 [Rx] HYDROcodone/APAP 5-325MG [[place] 5-325] 1 tab PO Q6HR PRN 3 Days #12 tab 03/27/21 [Rx] Pantoprazole [Protonix] 40 mg PO AC-BRKFST #30 tab 03/27/21 [Rx] Potassium Chloride [Klor-Con 20] 20 meq PO DAILY #30 tab 03/27/21 [Rx] lisinopriL [Zestril] 5 mg PO DAILY #30 tab 03/27/21 [Rx] Follow up Appointment(s)/Referral(s): [facility] [NON-STAFF] - As Needed Yina Mancuso DO [Primary Care Provider] - 1-2 days Lance Alexander MD [STAFF PHYSICIAN] - 1 Week Activity/Diet/Wound Care/Special Instructions: HOME MEDICATIONS IN PHARMACY - SECURITY RECEIPT IN CHART Discharge Disposition: HOME WITH HOME HEALTH SERVICES
[2021-03-27] MEDS: FUROSEMIDE 40 MG TAB PO SCH (15:57)
[2021-03-27] MEDS: traZODone HCL 50 MG TAB PO SCH (22:41)
[2021-03-28] MEDS: metroNIDAZOLE-NS PMX 500 MG in SALINE 1 100ML.BAG IVPB SCH ×5 (05:27→23:36)
[2021-03-28] MEDS: hydrALAZINE HCL 20 MG/ML 1 ML VIAL IVP PRN (05:38)
[2021-03-28] MEDS: IPRATROPIUM 0.5 MG/2.5 ML NEBU INHALATION SCH ×4 (08:05→19:11)
[2021-03-28] MEDS: CITALOPRAM HYDROBROMIDE 20 MG TAB PO SCH (09:06)
[2021-03-28] MEDS: lisinopriL 5 MG TAB PO SCH (09:06)
[2021-03-28] MEDS: ENOXAPARIN 40 MG/0.4 ML SYRINGE SQ SCH (09:06)
[2021-03-28] MEDS: FUROSEMIDE 40 MG TAB PO SCH ×2 (09:06→17:23)
[2021-03-28] MEDS: PANTOPRAZOLE 40 MG/10 ML VIAL IV SCH (09:06)
[2021-03-28 09:13] LABS: Basophils # (A) 0.03 X 10*3/uL (0.00-0.10); Basophils % (A) 0.4 %; Eosinophils # (A) 0.06 X 10*3/uL (0.04-0.35); Eosinophils % (A) 0.7 %; HCT 35.3 % (37.2-46.3); HGB 11.9 g/dL (12.0-15.0); Immature Grans, Automated 0.6 %; Lymphocytes # (A) 0.73 X 10*3/uL (0.90-5.00); Lymphocytes % (A) 8.7 %; MCH 30.6 pg (27.0-32.0); MCHC 33.7 g/dL (32.0-37.0); MCV 90.7 fL (80.0-97.0); Mean Platelet Volume 9.3 fL (9.5-12.2); Monocytes # (A) 1.01 X 10*3/uL (0.20-1.00); Monocytes % (A) 12.1 %; NRBC Per 100 WBC 0 /100 WBCS (0.0-0.0); Neutrophils % (A) 77.5 %; Platelet Count 362 X 10*3/uL (140-440); RBC 3.89 X 10*6/uL (4.10-5.20); RDW 13.5 % (11.5-14.5); WBC 8.38 X 10*3/uL (4.50-10.00)
[2021-03-28 09:21] LABS: Anion Gap 11.1 mmol/L (10.00-18.00); Blood Urea Nitrogen 13.2 mg/dL (9.0-27.0); Carbon Dioxide 27.9 mmol/L (20.0-27.5); Non-African American GFR(CKD) 83.7 (60.0-200.0); Potassium 3.2 mmol/L (3.5-5.5)
[2021-03-28] MEDS: NICOTINE 14MG/24HR PATCH TRANSDERM SCH (09:25)
--- NOTE | 2021-03-28 11:39 | P.PN ---
Subjective Progress Note Date: 03/28/21 Principal diagnosis: Perforated ulcer Patient doing somewhat better today. Yesterday she was going to be discharged however patient was having frequent loose stools with incontinence and significant lower extremity edema with serous drainage. No significant abdominal pain. Appetite improving. Still having loose stools today. Objective - Vital Signs Vital signs: Vital Signs Temp 98.3 F 03/28/21 05:18 Pulse 82 03/28/21 05:18 Resp 17 03/28/21 05:18 BP 164/80 03/28/21 05:18 Pulse Ox 95 03/28/21 05:18 Intake & Output 03/27/21 03/28/21 03/28/21 18:59 06:59 18:59 Intake Total 200 Balance 200 Intake: Intake, IV Titration 200 Amount metroNIDAZOLE-NS PMX 500 200 mg In Saline 1 100ml.bag @ 100 mls/hr IVPB Q6HR [facility] Rx#:[id number] Other: Voiding Method Bedside Commode Toilet Diaper # Voids 5 2 # Bowel Movements 4 1 - Exam Abdomen: Soft, nondistended, mild tenderness, incision clean and dry - Labs CBC & Chem 7: 03/28/21 05:11 03/28/21 05:11 Labs: Abnormal Lab Results - Last 24 Hours (Table) 03/28/21 03/28/21 Range/Units 05:11 05:11 RBC 3.89 L (4.10-5.20) X 10*6/uL Hgb 11.9 L (12.0-15.0) g/dL Hct 35.3 L (37.2-46.3) % MPV 9.3 L (9.5-12.2) fL Immature Gran # 0.05 H (0.00-0.04) X 10*3/uL Lymphocytes # 0.73 L (0.90-5.00) X 10*3/uL Monocytes # 1.01 H (0.20-1.00) X 10*3/uL Potassium 3.2 L (3.5-5.5) mmol/L Carbon Dioxide 27.9 H (20.0-27.5) mmol/L BUN/Creatinine Ratio 22.00 H (12.00-20.00) Ratio Calcium 8.0 L (8.7-10.3) mg/dL Assessment and Plan (1) Gastric perforation Narrative/Plan: Patient with loose stools and incontinence. Patient also with lower cavity swelling and spontaneous drainage from the legs. Agree with Yasmany wraps and continue diuretics. Patient will discuss this further with the hospital team. We will add Imodium for the patient's loose stools and incontinence issues. She was on budesonide as an outpatient for mild colitis. We will not resume that at this time given the potential impact on feeling. This was discussed with both t he patient and her granddaughter. Current Visit: Yes Status: Acute Code(s): K25.5 - CHRONIC OR UNSPECIFIED GASTRIC ULCER WITH PERFORATION SNOMED Code(s): 993484387
[2021-03-28] MEDS: LOPERAMIDE 2 MG CAP PO PRN ×3 (12:04→21:29)
[2021-03-28] MEDS ORDERED: POTASSIUM CHLORIDE ER 20 MEQ TAB.ER PO STA (12:42)
[2021-03-28] MEDS: traZODone HCL 50 MG TAB PO SCH (21:29)
[2021-03-29] MEDS: metroNIDAZOLE-NS PMX 500 MG in SALINE 1 100ML.BAG IVPB SCH ×4 (05:32→23:35)
[2021-03-29 09:10] LABS: Basophils # (A) 0.03 X 10*3/uL (0.00-0.10); Basophils % (A) 0.4 %; Eosinophils # (A) 0.08 X 10*3/uL (0.04-0.35); Eosinophils % (A) 1.2 %; HCT 33.2 % (37.2-46.3); HGB 11.4 g/dL (12.0-15.0); Immature Grans, Automated 0.4 %; Lymphocytes # (A) 1.22 X 10*3/uL (0.90-5.00); Lymphocytes % (A) 17.6 %; MCH 30.9 pg (27.0-32.0); MCHC 34.3 g/dL (32.0-37.0); Mean Platelet Volume 9.3 fL (9.5-12.2); Monocytes # (A) 0.81 X 10*3/uL (0.20-1.00); Monocytes % (A) 11.7 %; NRBC Per 100 WBC 0 /100 WBCS (0.0-0.0); Neutrophils # (A) 4.75 X 10*3/uL (1.80-7.70); Neutrophils % (A) 68.7 %; Platelet Count 338 X 10*3/uL (140-440); RBC 3.69 X 10*6/uL (4.10-5.20); RDW 13.4 % (11.5-14.5); WBC 6.92 X 10*3/uL (4.50-10.00)
[2021-03-29] MEDS: PANTOPRAZOLE 40 MG/10 ML VIAL IV SCH (09:10)
[2021-03-29] MEDS: FUROSEMIDE 40 MG TAB PO SCH ×2 (09:10→16:59)
[2021-03-29] MEDS: CITALOPRAM HYDROBROMIDE 20 MG TAB PO SCH (09:10)
[2021-03-29] MEDS: ENOXAPARIN 40 MG/0.4 ML SYRINGE SQ SCH (09:10)
[2021-03-29] MEDS: lisinopriL 5 MG TAB PO SCH (09:10)
[2021-03-29] MEDS: NICOTINE 14MG/24HR PATCH TRANSDERM SCH (09:11)
[2021-03-29 09:23] LABS: Anion Gap 11.2 mmol/L (10.00-18.00); Calcium 7.9 mg/dL (8.7-10.3); Carbon Dioxide 26.8 mmol/L (20.0-27.5); Non-African American GFR(CKD) 88.9 (60.0-200.0); Potassium 3.1 mmol/L (3.5-5.5)
[2021-03-29] MEDS ORDERED: Potassium Replacement Protocol 1 EACH MISC MISCELLANE PRN (09:57)
[2021-03-29] MEDS: IPRATROPIUM 0.5 MG/2.5 ML NEBU INHALATION SCH ×4 (11:19→19:27)
[2021-03-29] MEDS: POTASSIUM CHLORIDE ER 20 MEQ TAB.ER PO SCH (12:04)
--- NOTE | 2021-03-29 12:53 | P.PN ---
Subjective Progress Note Date: 03/29/21 Principal diagnosis: Perforated ulcer Patient doing better today. Diarrhea has improved. Still has leg swelling. White blood cell count normal. Tolerating diet. Objective - Vital Signs Vital signs: Vital Signs Temp 98.2 F 03/29/21 08:00 Pulse 86 03/29/21 08:00 Resp 16 03/29/21 08:00 BP 170/83 03/29/21 08:00 Pulse Ox 92 L 03/29/21 08:00 Intake & Output 03/28/21 03/29/21 03/29/21 18:59 06:59 18:59 Intake Total 296 Balance 296 Intake: Oral 296 Other: Voiding Method Toilet # Voids 2 3 # Bowel Movements 3 - Exam Abdomen: Soft, nondistended, nontender, incision clean and dry - Labs CBC & Chem 7: 03/29/21 04:41 03/29/21 04:41 Labs: Abnormal Lab Results - Last 24 Hours (Table) 03/29/21 03/29/21 Range/Units 04:41 04:41 RBC 3.69 L (4.10-5.20) X 10*6/uL Hgb 11.4 L (12.0-15.0) g/dL Hct 33.2 L (37.2-46.3) % MPV 9.3 L (9.5-12.2) fL Potassium 3.1 L (3.5-5.5) mmol/L Creatinine 0.5 L (0.6-1.5) mg/dL Calcium 7.9 L (8.7-10.3) mg/dL Assessment and Plan (1) Gastric perforation Narrative/Plan: Patient doing better at this time. Continue Imodium for diarrhea. Continue diuretics. Anticipate discharge tomorrow. Current Visit: Yes Status: Acute Code(s): K25.5 - CHRONIC OR UNSPECIFIED GASTRIC ULCER WITH PERFORATION SNOMED Code(s): 072722018
[2021-03-29] MEDS ORDERED: POTASSIUM CHLORIDE ER 20 MEQ TAB.ER PO SCH (14:00)
[2021-03-29] MEDS: traZODone HCL 50 MG TAB PO SCH (21:36)
--- NOTE | 2021-03-30 00:31 | P.PN ---
Subjective Progress Note Date: 03/27/21 - History of Present Illness 85-year-old the a pleasant female came in with compensative diffuse abdominal pain sharp in nature along with the nausea has been going on for couple days, patient denied any diarrhea. Patient doesn't have any fever chills doesn't have any leukocytosis patient has a CT of the abdomen which showed some a proximal to the stomach because of which patient was admitted to general surgery and patient is presently on metronidazole and levofloxacin. Concern for peptic ulcer dise ase and perforation. Patient pain significant improved. Patient blood pressure is bit elevated today. Patient will undergo upper GI endoscopy tomorrow. 03/16/2021 Patient is seen in follow up this morning and continues with abdominal pain. General surgery as attending plans on EGD today and patient is currently NPO. Patient denies any nausea or vomiting. Patient reports to passing gas and having bowel movements and denies blood in the stool. Patient is continued on IV ceftriaxone and flagyl for concern for possible perforation. No new labs today and will repeat in the am. 03/17/2021 Patient is seen and evaluated in follow-up and continues with abdominal pain. Patient underwent EGD yesterday which shows a large ulcer with tunneling and is scheduled to undergo partial gastrectomy with Dr. Alexander. Plans were for surgery on Tuesday although patient is having large amounts of bloody stools and will be going to surgery today. Patient was made nothing by mouth. Risks versus benefits were discussed with the patient and patient is willing to proceed with intervention. Patient is an intermediate risk given her long extensive history of continued tobacco abuse although given the new findings and urgency with bleeding patient should go for surgical intervention today. Patien t denies any chest pain or shortness of breath. Patient is afebrile. No reports of nausea or vomiting and patient is nothing by mouth for the procedure. 03/18/2021 Patient is seen in follow up this morning and is status post exploratory laparotomy, distal gastrectomy with gastrojejunostomy and is being closely monitored. Patient is lethargic but easily arousable. Surgical dressing is dry and intact and patient continues with abdominal pain and binder is in place. Patient also continues with NG tube and is NPO requesting ice chips. Dietitian also consulted and patient to receive PICC line to initiate TPN. WBC increased to 16.1 most likely reactive and will monitor closely. Patient is afebrile and denies chest pain or shortness of breath. 03/19/2021 Patient is seen in follow-up today continues to have some abdominal pain although denies any worsening pain. Patient is continued nothing by mouth with NG tube and is receiving TPN. Patient denies any chest pain or shortness of breath. Patient states she does have a cough which is most likely chronic because she is continued ongoing nicotine use. Patient continues on IV ceftriaxone along with Flagyl and will continue. Patient is afebrile. Patient continues to be hypertensive and currently nothing by mouth so will continue wit h IV hydralazine and monitor closely. Patients potassium mildly low at 3.4 and does have potassium in the TPN and fluids although will replace and repeat labs recommended. 03/20/2021 Patient is seen this morning in follow up today and has had NG tube removed. Patient is more awake and alert today and continues with periods of confusion at times. Per RN, daughter reported to her that patient does drink almost daily and feels she is actively withdrawing. Will add CIWA and monitor closely. Patient also continues with dilaudid and recommend caution against excessive use. Patient denies any chest pain or shortness of breath and is currenly sitting up at the side of the bed on room air. IS at the bedside and encouraged the patient to continue using 10 times every hour while awake. No bowel sounds noted on exam and patient denies passing gas or bowel activity. Patient is being started on clear liquid diet and continues on TPN. 03/21/2021 Patient currently lying in the bed. Awake alert and oriented. Lethargic and drowsy. Status post partial gastrectomy with gastro jejunostomy on 03/17/2021 due to perforated gastric ulcer.. Patient has been afebrile. No complaints of chest pain or worsening shortness of breath. Patient is currently on TPN. Laboratory showed WBC 13.1 hemoglobin 12.1 and platelets 385 BUN 24 and creatinine 0.43 blood pressure is fairly controlled. We will add lisinopril. 03/22/2021 Patient is currently resting in bed. Awake and alert. Lethargic and sleepy. Remains on TPN. Continued on antibiotics above ceftriaxone and Flagyl. Blood pressure is still elevated with SBP in 170s. Patient will be continued on hydralazine IV and Norvasc. Lisinopril will be added. Patient has been afebrile. Currently requiring oxygen at 2 L via nasal cannula and saturating at 92%. Patient is also on full liquid diet. Lab data showed sodium 137 potassium 3.9 chloride 108 BUN 28 and creatinine 0.48 Patient has been afebrile. No nausea vomiting or diarrhea. No chest pain or shortness of breath. No cough or sputum production. 03/23/2021 Patient is seen in follow-up today and being followed closely. Continue to follow with general surgery and patient is maintained on IV ceftriaxone along with Flagyl. Patient is on TPN although continuing to wean and diet has been started and tolerating thus far. Patient is having gas and bowel movements and patient states they are all loose stools which she appears to have chronically as she does have a history of colitis. Patient with lower extremity edema that is significant and most likely a component of volume overload as patient was receiving IV fluids along with TPN. Patient to be started on low-dose IV Lasix and will monitor intake and output along with electrolytes and kidney functions. Will repeat labs. White count 18.17 and patient is continued on ceftriaxone and Flagyl. Patient is afebrile. Patient denies any worsening abdominal pain. 03/24/2021 Patient is seen and evaluated this morning and denies any further abdominal discomfort and reports to having bowel movements that continue to be loose. Patient is urinating and diuresing well on IV Lasix as patient has continued bilateral lower extremity edema 2+ pitting and is having discomfort and pain of the legs. Will increase IV Lasix to 40 mg twice daily and monitor electrolytes and kidney functions closely. Patient is continued on antibiotics and recommend to continue. Monitor WBC closely. TPN being weaned. 03/25/2021 Patient is seen this morning lying in bed comfortably and easily arousable. Patient reports to not having a good nights sleep and has been urinating frequently. Patient requesting foss catheter and will attempt external device and discussed risks versus benefits of indwelling foss catheter and higher risk for infection. Patient continues to tolerate diet with no reports of nausea or vomiting noted. TPN has been discontinued. Patient bilateral lower extremity swelling significantly improved and will continue IV lasix and monitor closely. Will repeat am labs. WBC trending down. Patient continues on IV antibiotics. 03/26/2021 Patient evaluated this morning and sitting up at the side of the bed in no acute distress. Patient is tolerating diet and denies any abdominal pain. Patient maintained on IV lasix 40mg bid and will transition to oral lasix daily for a few days to assist with lower extremity edema. Swelling continues to improve. Patient needs encouragement to elevate lower extremities at rest. Potassium is low today at 2.7 and will replace and repeat am labs. WBC trending down as well. Patient is afebrile. Labs: WBC is 10.4, hemoglobin is 10.9 , platelets are 372, sodium is 135, potassium 2.7, BUN is 22, creatinine is 0.61, calcium is 7.9 03/27/2021 Patient is currently resting in the bed. Awake alert and oriented. Denies any complaints of abdominal pain. No nausea vomiting. Patient does have diarrhea and C. difficile toxin was sent. Otherwise patient is having bilateral severe leg swelling with bruising of serous drainage. Current Lasix changed to twice daily. Potassium is being replaced. Improved to 3.5 today. Patient has been afebrile. Continues to be antibiotics in the form of ceftriaxone and Flagyl. Patient is tolerating oral diet. Supposed to be discharged today but held due to bilateral lower extremity swelling. Review of systems: CONSTITUTIONAL: No fever, no malaise, generalized fatigue. CARDIOVASCULAR: No chest pain, orthopnea, PND, no palpitations, no syncope. PULMONARY: No shortness of breath, no cough, no hemoptysis. GASTROINTESTINAL: no reports of nausea or vomiting. patient is passing gas and having loose stools NEUROLOGICAL: No headaches, no weakness, no numbness. GENITOURINARY: Denies any burning micturition, frequency, or urgency. MUSCULOSKELETAL/RHEUMATOLOGICAL: Reports lower extremity swelling with some improvement Objective - Vital Signs Vital signs: Vital Signs Temp 97.8 F 03/27/21 08:00 Pulse 78 03/27/21 11:49 Resp 17 03/27/21 08:00 BP 153/77 03/27/21 08:00 Pulse Ox 95 03/27/21 08:33 Intake & Output 03/26/21 03/27/21 03/27/21 18:59 06:59 18:59 Intake Total 708 500 Balance 708 500 Weight 43.091 kg Intake: Intake, IV Titration 300 Amount cefTRIAXone 2 gm In 100 Sodium Chloride 0.9% 50 ml @ 100 mls/hr IVPB Q12HR [facility] Rx#:[id number] metroNIDAZOLE-NS PMX 500 200 mg In Saline 1 100ml.bag @ 100 mls/hr IVPB Q6HR [facility] Rx#:[id number] Oral 708 200 Other: Voiding Method Bedside Commode Bedside Commode Bedside Commode Diaper Diaper Diaper # Voids 3 2 # Bowel Movements 2 - Exam PHYSICAL EXAMINATION: GENERAL: The patient is alert and oriented x3, not in any acute distress. much more awake today and sitting up at the side of the bed. Thin build, cachetic HEENT: Pupils are round and equally reacting to light. EOMI. No scleral icterus. No conjunctival pallor. Normocephalic, atraumatic. No pharyngeal erythema. No thyromegaly. CARDIOVASCULAR: S1 and S2 present. No murmurs, rubs, or gallops. PULMONARY: Chest is clear to auscultation, no wheezing or crackles. ABDOMEN: Soft, minimal diffuse tenderness, nondistended, absent bowel sounds. No palpable organomegaly. surgical dressing is dry and intact with minimal old blood noted since surgery. abdominal binder noted. MUSCULOSKELETAL: No joint swelling or deformity. EXTREMITIES: No cyanosis, clubbing, 3+ pedal edema. NEUROLOGICAL: Gross neurological examination did not reveal any focal deficits. generalized weakness SKIN: No rashes. - Labs CBC & Chem 7: 03/29/21 04:41 03/29/21 04:41 Labs: Abnormal Lab Results - Last 24 Hours (Table) 03/27/21 03/27/21 Range/Units 05:29 05:29 RBC 3.62 L (3.80-5.40) m/uL Lymphocytes # 0.8 L (1.0-4.8) k/uL Sodium 134 L (137-145) mmol/L Carbon Dioxide 32 H (22-30) mmol/L BUN 21 H (7-17) mg/dL Calcium 8.0 L (8.4-10.2) mg/dL Assessment and Plan Assessment: Assessment and plan: -Bilateral lower extremity swelling. Likely due to dependent edema and Fluid load. -Perforated gastric ulcer. Status post partial gastrectomy gastrojejunostomy on 03/17/2021. tolerating regular diet -status post EGD showing large penetrating ulcer with large tunneling within the ulcer. Patient underwent distal gastrectomy -possible acute alcohol withdrawal. Maintained on CIWA as needed. Not actively withdrawing -leukocytosis most likely reactive from recent surgery. improved -hypokalemia, 2.7 today and will replace and repeat labs -Hypertension -COPD without any acute exacerbation continue with albuterol inhalational treatments -Continued nicotine use: Counseling was provided -moderate protein calorie malnutrition with a bmi of 17.9 -DVT prophylaxis: As per primary service -GI prophylaxis -Full code, no intubation Plan: Recommend to continue with current medication management. Continue lisinopril and monitor blood pressure closely. Encouraged oral intake and has been tolerating regular diet. Recommend Yasmany wraps from bilateral lower extremities from the toes up to the knees and elevate lower extremity swelling rest. transition to oral lasix and may need a few days on discharge for the swelling which is improved. May need potassium supplements for a few days as well. Potassium rich diet encouraged Potassium found to be 3.5 today and replacing and repeat labs in am ordered.c/w lasix. WBC improved. Continue IV antibiotics. Patient is status post exploratory laparotomy, distal gastrectomy with gastrojejunostomy. Patient is afebrile. Encouraged increased activity as tolerated. Incentive spirometer at the bedside and encouraged the patient to use at least 10 times every hour while awake. Will repeat a.m. labs and continue to monitor closely. Will continue to follow along with surgery during hospitalization. Social work and PT/OT following and patient will likely go home with home care. Time with Patient: Greater than 30
--- NOTE | 2021-03-30 00:33 | P.PN ---
Subjective Progress Note Date: 03/28/21 - History of Present Illness 85-year-old the a pleasant female came in with compensative diffuse abdominal pain sharp in nature along with the nausea has been going on for couple days, patient denied any diarrhea. Patient doesn't have any fever chills doesn't have any leukocytosis patient has a CT of the abdomen which showed some a proximal to the stomach because of which patient was admitted to general surgery and patient is presently on metronidazole and levofloxacin. Concern for peptic ulcer dise ase and perforation. Patient pain significant improved. Patient blood pressure is bit elevated today. Patient will undergo upper GI endoscopy tomorrow. 03/16/2021 Patient is seen in follow up this morning and continues with abdominal pain. General surgery as attending plans on EGD today and patient is currently NPO. Patient denies any nausea or vomiting. Patient reports to passing gas and having bowel movements and denies blood in the stool. Patient is continued on IV ceftriaxone and flagyl for concern for possible perforation. No new labs today and will repeat in the am. 03/17/2021 Patient is seen and evaluated in follow-up and continues with abdominal pain. Patient underwent EGD yesterday which shows a large ulcer with tunneling and is scheduled to undergo partial gastrectomy with Dr. Alexander. Plans were for surgery on Tuesday although patient is having large amounts of bloody stools and will be going to surgery today. Patient was made nothing by mouth. Risks versus benefits were discussed with the patient and patient is willing to proceed with intervention. Patient is an intermediate risk given her long extensive history of continued tobacco abuse although given the new findings and urgency with bleeding patient should go for surgical intervention today. Patien t denies any chest pain or shortness of breath. Patient is afebrile. No reports of nausea or vomiting and patient is nothing by mouth for the procedure. 03/18/2021 Patient is seen in follow up this morning and is status post exploratory laparotomy, distal gastrectomy with gastrojejunostomy and is being closely monitored. Patient is lethargic but easily arousable. Surgical dressing is dry and intact and patient continues with abdominal pain and binder is in place. Patient also continues with NG tube and is NPO requesting ice chips. Dietitian also consulted and patient to receive PICC line to initiate TPN. WBC increased to 16.1 most likely reactive and will monitor closely. Patient is afebrile and denies chest pain or shortness of breath. 03/19/2021 Patient is seen in follow-up today continues to have some abdominal pain although denies any worsening pain. Patient is continued nothing by mouth with NG tube and is receiving TPN. Patient denies any chest pain or shortness of breath. Patient states she does have a cough which is most likely chronic because she is continued ongoing nicotine use. Patient continues on IV ceftriaxone along with Flagyl and will continue. Patient is afebrile. Patient continues to be hypertensive and currently nothing by mouth so will continue wit h IV hydralazine and monitor closely. Patients potassium mildly low at 3.4 and does have potassium in the TPN and fluids although will replace and repeat labs recommended. 03/20/2021 Patient is seen this morning in follow up today and has had NG tube removed. Patient is more awake and alert today and continues with periods of confusion at times. Per RN, daughter reported to her that patient does drink almost daily and feels she is actively withdrawing. Will add CIWA and monitor closely. Patient also continues with dilaudid and recommend caution against excessive use. Patient denies any chest pain or shortness of breath and is currenly sitting up at the side of the bed on room air. IS at the bedside and encouraged the patient to continue using 10 times every hour while awake. No bowel sounds noted on exam and patient denies passing gas or bowel activity. Patient is being started on clear liquid diet and continues on TPN. 03/21/2021 Patient currently lying in the bed. Awake alert and oriented. Lethargic and drowsy. Status post partial gastrectomy with gastro jejunostomy on 03/17/2021 due to perforated gastric ulcer.. Patient has been afebrile. No complaints of chest pain or worsening shortness of breath. Patient is currently on TPN. Laboratory showed WBC 13.1 hemoglobin 12.1 and platelets 385 BUN 24 and creatinine 0.43 blood pressure is fairly controlled. We will add lisinopril. 03/22/2021 Patient is currently resting in bed. Awake and alert. Lethargic and sleepy. Remains on TPN. Continued on antibiotics above ceftriaxone and Flagyl. Blood pressure is still elevated with SBP in 170s. Patient will be continued on hydralazine IV and Norvasc. Lisinopril will be added. Patient has been afebrile. Currently requiring oxygen at 2 L via nasal cannula and saturating at 92%. Patient is also on full liquid diet. Lab data showed sodium 137 potassium 3.9 chloride 108 BUN 28 and creatinine 0.48 Patient has been afebrile. No nausea vomiting or diarrhea. No chest pain or shortness of breath. No cough or sputum production. 03/23/2021 Patient is seen in follow-up today and being followed closely. Continue to follow with general surgery and patient is maintained on IV ceftriaxone along with Flagyl. Patient is on TPN although continuing to wean and diet has been started and tolerating thus far. Patient is having gas and bowel movements and patient states they are all loose stools which she appears to have chronically as she does have a history of colitis. Patient with lower extremity edema that is significant and most likely a component of volume overload as patient was receiving IV fluids along with TPN. Patient to be started on low-dose IV Lasix and will monitor intake and output along with electrolytes and kidney functions. Will repeat labs. White count 18.17 and patient is continued on ceftriaxone and Flagyl. Patient is afebrile. Patient denies any worsening abdominal pain. 03/24/2021 Patient is seen and evaluated this morning and denies any further abdominal discomfort and reports to having bowel movements that continue to be loose. Patient is urinating and diuresing well on IV Lasix as patient has continued bilateral lower extremity edema 2+ pitting and is having discomfort and pain of the legs. Will increase IV Lasix to 40 mg twice daily and monitor electrolytes and kidney functions closely. Patient is continued on antibiotics and recommend to continue. Monitor WBC closely. TPN being weaned. 03/25/2021 Patient is seen this morning lying in bed comfortably and easily arousable. Patient reports to not having a good nights sleep and has been urinating frequently. Patient requesting foss catheter and will attempt external device and discussed risks versus benefits of indwelling foss catheter and higher risk for infection. Patient continues to tolerate diet with no reports of nausea or vomiting noted. TPN has been discontinued. Patient bilateral lower extremity swelling significantly improved and will continue IV lasix and monitor closely. Will repeat am labs. WBC trending down. Patient continues on IV antibiotics. 03/26/2021 Patient evaluated this morning and sitting up at the side of the bed in no acute distress. Patient is tolerating diet and denies any abdominal pain. Patient maintained on IV lasix 40mg bid and will transition to oral lasix daily for a few days to assist with lower extremity edema. Swelling continues to improve. Patient needs encouragement to elevate lower extremities at rest. Potassium is low today at 2.7 and will replace and repeat am labs. WBC trending down as well. Patient is afebrile. Labs: WBC is 10.4, hemoglobin is 10.9 , platelets are 372, sodium is 135, potassium 2.7, BUN is 22, creatinine is 0.61, calcium is 7.9 03/27/2021 Patient is currently resting in the bed. Awake alert and oriented. Denies any complaints of abdominal pain. No nausea vomiting. Patient does have diarrhea and C. difficile toxin was sent. Otherwise patient is having bilateral severe leg swelling with bruising of serous drainage. Current Lasix changed to twice daily. Potassium is being replaced. Improved to 3.5 today. Patient has been afebrile. Continues to be antibiotics in the form of ceftriaxone and Flagyl. Patient is tolerating oral diet. Supposed to be discharged today but held due to bilateral lower extremity swelling. 03/28/2021 Patient is currently resting in bed. Still having significant leg swelling. Continued on IV Lasix 40 g twice daily. Potassium level is 3.2 today. Which is being replaced. Otherwise patient is still having diarrhea. Ceftriaxone will be discontinued and continue with Flagyl at this time. C. difficile toxin is negative. Patient has been afebrile. No complaints of chest pain or shortness of air. No nausea vomiting abdominal pain or diarrhea. Patient is tolerating oral diet. Follow-up CBC and BMP tomorrow. Review of systems: CONSTITUTIONAL: No fever, no malaise, generalized fatigue. CARDIOVASCULAR: No chest pain, orthopnea, PND, no palpitations, no syncope. PULMONARY: No shortness of breath, no cough, no hemoptysis. GASTROINTESTINAL: no reports of nausea or vomiting. patient is passing gas and having loose stools NEUROLOGICAL: No headaches, no weakness, no numbness. GENITOURINARY: Denies any burning micturition, frequency, or urgency. MUSCULOSKELETAL/RHEUMATOLOGICAL: Reports lower extremity swelling with some improvement Objective - Vital Signs Vital signs: Vital Signs Temp 98 F 03/28/21 14:00 Pulse 91 03/28/21 15:06 Resp 16 03/28/21 14:00 BP 148/74 03/28/21 14:00 Pulse Ox 96 03/28/21 14:00 Intake & Output 03/27/21 03/28/21 03/28/21 18:59 06:59 18:59 Intake Total 200 Balance 200 Intake: Intake, IV Titration 200 Amount metroNIDAZOLE-NS PMX 500 200 mg In Saline 1 100ml.bag @ 100 mls/hr IVPB Q6HR [facility] Rx#:[id number] Other: Voiding Method Bedside Commode Toilet Diaper # Voids 5 2 # Bowel Movements 4 1 - Exam PHYSICAL EXAMINATION: GENERAL: The patient is alert and oriented x3, not in any acute distress. much more awake today and sitting up at the side of the bed. Thin build, cachetic HEENT: Pupils are round and equally reacting to light. EOMI. No scleral icterus. No conjunctival pallor. Normocephalic, atraumatic. No pharyngeal erythema. No thyromegaly. CARDIOVASCULAR: S1 and S2 present. No murmurs, rubs, or gallops. PULMONARY: Chest is clear to auscultation, no wheezing or crackles. ABDOMEN: Soft, minimal diffuse tenderness, nondistended, absent bowel sounds. No palpable organomegaly. surgical dressing is dry and intact with minimal old blood noted since surgery. abdominal binder noted. MUSCULOSKELETAL: No joint swelling or deformity. EXTREMITIES: No cyanosis, clubbing, 3+ pedal edema. NEUROLOGICAL: Gross neurological examination did not reveal any focal deficits. generalized weakness SKIN: No rashes. - Labs CBC & Chem 7: 03/29/21 04:41 03/29/21 04:41 Labs: Abnormal Lab Results - Last 24 Hours (Table) 03/28/21 03/28/21 Range/Units 05:11 05:11 RBC 3.89 L (4.10-5.20) X 10*6/uL Hgb 11.9 L (12.0-15.0) g/dL Hct 35.3 L (37.2-46.3) % MPV 9.3 L (9.5-12.2) fL Immature Gran # 0.05 H (0.00-0.04) X 10*3/uL Lymphocytes # 0.73 L (0.90-5.00) X 10*3/uL Monocytes # 1.01 H (0.20-1.00) X 10*3/uL Potassium 3.2 L (3.5-5.5) mmol/L Carbon Dioxide 27.9 H (20.0-27.5) mmol/L BUN/Creatinine Ratio 22.00 H (12.00-20.00) Ratio Calcium 8.0 L (8.7-10.3) mg/dL Assessment and Plan Assessment: Assessment and plan: -Bilateral lower extremity swelling. Likely due to dependent edema and Fluid goldy d. -Perforated gastric ulcer. Status post partial gastrectomy gastrojejunostomy on 03/17/2021. tolerating regular diet -status post EGD showing large penetrating ulcer with large tunneling within the ulcer. Patient underwent distal gastrectomy -possible acute alcohol withdrawal. Maintained on CIWA as needed. Not actively withdrawing -leukocytosis most likely reactive from recent surgery. improved -hypokalemia, 2.7 today and will replace and repeat labs -Hypertension -COPD without any acute exacerbation continue with albuterol inhalational treatments -Continued nicotine use: Counseling was provided -moderate protein calorie malnutrition with a bmi of 17.9 -DVT prophylaxis: As per primary service -GI prophylaxis -Full code, no intubation Plan: Recommend to continue with current medication management. Continue lisinopril and monitor blood pressure closely. Encouraged oral intake and has been tolerating regular diet. Recommend Yasmany wraps from bilateral lower extremities from the toes up to the knees and elevate lower extremity swelling rest. transition to oral lasix and may need a few days on discharge for the swelling which is improved. May need potassium supplements for a few days as well. Potassium rich diet encouraged Potassium found to be 3.5 today and replacing and repeat labs in am ordered.c/w lasix. WBC improved. Continue IV antibiotics. Patient is status post exploratory laparotomy, distal gastrectomy with gastrojejunostomy. Patient is afebrile. Encouraged increased activity as tolerated. Incentive spirometer at the bedside and encouraged the patient to use at least 10 times every hour while awake. Will repeat a.m. labs and continue to monitor closely. Will continue to follow along with surgery during hospitalization. Social work and PT/OT following and patient will likely go home with home care. Time with Patient: Greater than 30
--- NOTE | 2021-03-30 00:34 | P.PN ---
Subjective Progress Note Date: 03/29/21 - History of Present Illness 85-year-old the a pleasant female came in with compensative diffuse abdominal pain sharp in nature along with the nausea has been going on for couple days, patient denied any diarrhea. Patient doesn't have any fever chills doesn't have any leukocytosis patient has a CT of the abdomen which showed some a proximal to the stomach because of which patient was admitted to general surgery and patient is presently on metronidazole and levofloxacin. Concern for peptic ulcer dise ase and perforation. Patient pain significant improved. Patient blood pressure is bit elevated today. Patient will undergo upper GI endoscopy tomorrow. 03/16/2021 Patient is seen in follow up this morning and continues with abdominal pain. General surgery as attending plans on EGD today and patient is currently NPO. Patient denies any nausea or vomiting. Patient reports to passing gas and having bowel movements and denies blood in the stool. Patient is continued on IV ceftriaxone and flagyl for concern for possible perforation. No new labs today and will repeat in the am. 03/17/2021 Patient is seen and evaluated in follow-up and continues with abdominal pain. Patient underwent EGD yesterday which shows a large ulcer with tunneling and is scheduled to undergo partial gastrectomy with Dr. Alexander. Plans were for surgery on Tuesday although patient is having large amounts of bloody stools and will be going to surgery today. Patient was made nothing by mouth. Risks versus benefits were discussed with the patient and patient is willing to proceed with intervention. Patient is an intermediate risk given her long extensive history of continued tobacco abuse although given the new findings and urgency with bleeding patient should go for surgical intervention today. Patien t denies any chest pain or shortness of breath. Patient is afebrile. No reports of nausea or vomiting and patient is nothing by mouth for the procedure. 03/18/2021 Patient is seen in follow up this morning and is status post exploratory laparotomy, distal gastrectomy with gastrojejunostomy and is being closely monitored. Patient is lethargic but easily arousable. Surgical dressing is dry and intact and patient continues with abdominal pain and binder is in place. Patient also continues with NG tube and is NPO requesting ice chips. Dietitian also consulted and patient to receive PICC line to initiate TPN. WBC increased to 16.1 most likely reactive and will monitor closely. Patient is afebrile and denies chest pain or shortness of breath. 03/19/2021 Patient is seen in follow-up today continues to have some abdominal pain although denies any worsening pain. Patient is continued nothing by mouth with NG tube and is receiving TPN. Patient denies any chest pain or shortness of breath. Patient states she does have a cough which is most likely chronic because she is continued ongoing nicotine use. Patient continues on IV ceftriaxone along with Flagyl and will continue. Patient is afebrile. Patient continues to be hypertensive and currently nothing by mouth so will continue wit h IV hydralazine and monitor closely. Patients potassium mildly low at 3.4 and does have potassium in the TPN and fluids although will replace and repeat labs recommended. 03/20/2021 Patient is seen this morning in follow up today and has had NG tube removed. Patient is more awake and alert today and continues with periods of confusion at times. Per RN, daughter reported to her that patient does drink almost daily and feels she is actively withdrawing. Will add CIWA and monitor closely. Patient also continues with dilaudid and recommend caution against excessive use. Patient denies any chest pain or shortness of breath and is currenly sitting up at the side of the bed on room air. IS at the bedside and encouraged the patient to continue using 10 times every hour while awake. No bowel sounds noted on exam and patient denies passing gas or bowel activity. Patient is being started on clear liquid diet and continues on TPN. 03/21/2021 Patient currently lying in the bed. Awake alert and oriented. Lethargic and drowsy. Status post partial gastrectomy with gastro jejunostomy on 03/17/2021 due to perforated gastric ulcer.. Patient has been afebrile. No complaints of chest pain or worsening shortness of breath. Patient is currently on TPN. Laboratory showed WBC 13.1 hemoglobin 12.1 and platelets 385 BUN 24 and creatinine 0.43 blood pressure is fairly controlled. We will add lisinopril. 03/22/2021 Patient is currently resting in bed. Awake and alert. Lethargic and sleepy. Remains on TPN. Continued on antibiotics above ceftriaxone and Flagyl. Blood pressure is still elevated with SBP in 170s. Patient will be continued on hydralazine IV and Norvasc. Lisinopril will be added. Patient has been afebrile. Currently requiring oxygen at 2 L via nasal cannula and saturating at 92%. Patient is also on full liquid diet. Lab data showed sodium 137 potassium 3.9 chloride 108 BUN 28 and creatinine 0.48 Patient has been afebrile. No nausea vomiting or diarrhea. No chest pain or shortness of breath. No cough or sputum production. 03/23/2021 Patient is seen in follow-up today and being followed closely. Continue to follow with general surgery and patient is maintained on IV ceftriaxone along with Flagyl. Patient is on TPN although continuing to wean and diet has been started and tolerating thus far. Patient is having gas and bowel movements and patient states they are all loose stools which she appears to have chronically as she does have a history of colitis. Patient with lower extremity edema that is significant and most likely a component of volume overload as patient was receiving IV fluids along with TPN. Patient to be started on low-dose IV Lasix and will monitor intake and output along with electrolytes and kidney functions. Will repeat labs. White count 18.17 and patient is continued on ceftriaxone and Flagyl. Patient is afebrile. Patient denies any worsening abdominal pain. 03/24/2021 Patient is seen and evaluated this morning and denies any further abdominal discomfort and reports to having bowel movements that continue to be loose. Patient is urinating and diuresing well on IV Lasix as patient has continued bilateral lower extremity edema 2+ pitting and is having discomfort and pain of the legs. Will increase IV Lasix to 40 mg twice daily and monitor electrolytes and kidney functions closely. Patient is continued on antibiotics and recommend to continue. Monitor WBC closely. TPN being weaned. 03/25/2021 Patient is seen this morning lying in bed comfortably and easily arousable. Patient reports to not having a good nights sleep and has been urinating frequently. Patient requesting foss catheter and will attempt external device and discussed risks versus benefits of indwelling foss catheter and higher risk for infection. Patient continues to tolerate diet with no reports of nausea or vomiting noted. TPN has been discontinued. Patient bilateral lower extremity swelling significantly improved and will continue IV lasix and monitor closely. Will repeat am labs. WBC trending down. Patient continues on IV antibiotics. 03/26/2021 Patient evaluated this morning and sitting up at the side of the bed in no acute distress. Patient is tolerating diet and denies any abdominal pain. Patient maintained on IV lasix 40mg bid and will transition to oral lasix daily for a few days to assist with lower extremity edema. Swelling continues to improve. Patient needs encouragement to elevate lower extremities at rest. Potassium is low today at 2.7 and will replace and repeat am labs. WBC trending down as well. Patient is afebrile. Labs: WBC is 10.4, hemoglobin is 10.9 , platelets are 372, sodium is 135, potassium 2.7, BUN is 22, creatinine is 0.61, calcium is 7.9 03/27/2021 Patient is currently resting in the bed. Awake alert and oriented. Denies any complaints of abdominal pain. No nausea vomiting. Patient does have diarrhea and C. difficile toxin was sent. Otherwise patient is having bilateral severe leg swelling with bruising of serous drainage. Current Lasix changed to twice daily. Potassium is being replaced. Improved to 3.5 today. Patient has been afebrile. Continues to be antibiotics in the form of ceftriaxone and Flagyl. Patient is tolerating oral diet. Supposed to be discharged today but held due to bilateral lower extremity swelling. 03/28/2021 Patient is currently resting in bed. Still having significant leg swelling. Continued on IV Lasix 40 g twice daily. Potassium level is 3.2 today. Which is being replaced. Otherwise patient is still having diarrhea. Ceftriaxone will be discontinued and continue with Flagyl at this time. C. difficile toxin is negative. Patient has been afebrile. No complaints of chest pain or shortness of air. No nausea vomiting abdominal pain or diarrhea. Patient is tolerating oral diet. Follow-up CBC and BMP tomorrow. 03/29/2021 Patient is currently resting in the bed. No complaints of chest pain or shortness of. Bilateral leg swelling is improving. Potassium is 3.1 which is being replaced. Diarrhea has improved as well. C. difficile toxin is negative. Continue with Flagyl and ceftriaxone has been discontinued. Laboratory showed WBC 6.9 hemoglobin 11.4 and platelets 338 Sodium 138 potassium 3.1 chloride 100 bicarb is 26.8 BUN 10 and creatinine 0.5 and calcium 7.9. Anticipate discharge in the next 24 hours to home with home physical therapy. Review of systems: CONSTITUTIONAL: No fever, no malaise, generalized fatigue. CARDIOVASCULAR: No chest pain, orthopnea, PND, no palpitations, no syncope. PULMONARY: No shortness of breath, no cough, no hemoptysis. GASTROINTESTINAL: no reports of nausea or vomiting. patient is passing gas and having loose stools NEUROLOGICAL: No headaches, no weakness, no numbness. GENITOURINARY: Denies any burning micturition, frequency, or urgency. MUSCULOSKELETAL/RHEUMATOLOGICAL: Reports lower extremity swelling with some improvement Objective - Vital Signs Vital signs: Vital Signs Temp 98.0 F 03/29/21 19:00 Pulse 84 03/29/21 19:27 Resp 19 03/29/21 19:24 BP 132/85 03/29/21 19:00 Pulse Ox 100 03/29/21 19:00 Intake & Output 03/29/21 03/29/21 03/30/21 06:59 18:59 06:59 Intake Total 296 Balance 296 Intake: Oral 296 Other: Voiding Method Toilet Toilet # Voids 3 3 # Bowel Movements 3 - Exam PHYSICAL EXAMINATION: GENERAL: The patient is alert and oriented x3, not in any acute distress. much more awake today and sitting up at the side of the bed. Thin build, cachetic HEENT: Pupils are round and equally reacting to light. EOMI. No scleral icterus. No conjunctival pallor. Normocephalic, atraumatic. No pharyngeal erythema. No thyromegaly. CARDIOVASCULAR: S1 and S2 present. No murmurs, rubs, or gallops. PULMONARY: Chest is clear to auscultation, no wheezing or crackles. ABDOMEN: Soft, minimal diffuse tenderness, nondistended, absent bowel sounds. No palpable organomegaly. surgical dressing is dry and intact with minimal old blood noted since surgery. abdominal binder noted. MUSCULOSKELETAL: No joint swelling or deformity. EXTREMITIES: No cyanosis, clubbing, 3+ pedal edema. NEUROLOGICAL: Gross neurological examination did not reveal any focal deficits. generalized weakness SKIN: No rashes. - Labs CBC & Chem 7: 03/29/21 04:41 03/29/21 04:41 Labs: Abnormal Lab Results - Last 24 Hours (Table) 03/29/21 03/29/21 Range/Units 04:41 04:41 RBC 3.69 L (4.10-5.20) X 10*6/uL Hgb 11.4 L (12.0-15.0) g/dL Hct 33.2 L (37.2-46.3) % MPV 9.3 L (9.5-12.2) fL Potassium 3.1 L (3.5-5.5) mmol/L Creatinine 0.5 L (0.6-1.5) mg/dL Calcium 7.9 L (8.7-10.3) mg/dL Assessment and Plan Assessment: Assessment and plan: -Bilateral lower extremity swelling. Likely due to dependent edema and Fluid load. -Perforated gastric ulcer. Status post partial gastrectomy gastrojejunostomy on 03/17/2021. tolerating regular diet -status post EGD showing large penetrating ulcer with large tunneling within the ulcer. Patient underwent distal gastrectomy -possible acute alcohol withdrawal. Maintained on CIWA as needed. Not actively withdrawing -leukocytosis most likely reactive from recent surgery. improved -hypokalemia, 2.7 today and will replace and repeat labs -Hypertension -COPD without any acute exacerbation continue with albuterol inhalational treatments -Continued nicotine use: Counseling was provided -moderate protein calorie malnutrition with a bmi of 17.9 -DVT prophylaxis: As per primary service -GI prophylaxis -Full code, no intubation Plan: Recommend to continue with current medication management. Continue lisinopril and monitor blood pressure closely. Encouraged oral intake and has been tolerating regular diet. Recommend Yasmany wraps from bilateral lower extremities from the toes up to the knees and elevate lower extremity swelling rest. transition to oral lasix and may need a few days on discharge for the swelling which is improved. May need potassium supplements for a few days as well. Potassium rich diet encouraged Potassium found to be 3.5 today and replacing and repeat labs in am ordered.c/w lasix. WBC improved. Continue IV antibiotics. Patient is status post exploratory laparotomy, distal gastrectomy with gastrojejunostomy. Patient is afebrile. Encouraged increased activity as tolerated. Incentive spirometer at the bedside and encouraged the patient to use at least 10 times every hour while awake. Wi ll repeat a.m. labs and continue to monitor closely. Will continue to follow along with surgery during hospitalization. Social work and PT/OT following and patient will likely go home with home care.
[2021-03-30] MEDS: metroNIDAZOLE-NS PMX 500 MG in SALINE 1 100ML.BAG IVPB SCH ×2 (05:59→12:01)
[2021-03-30 07:31] VITALS: BP 174/87; RESP 18; TEMP 98.9
[2021-03-30] MEDS: CITALOPRAM HYDROBROMIDE 20 MG TAB PO SCH (07:39)
[2021-03-30] MEDS: FUROSEMIDE 40 MG TAB PO SCH (07:39)
[2021-03-30] MEDS: NICOTINE 14MG/24HR PATCH TRANSDERM SCH (07:39)
[2021-03-30] MEDS: PANTOPRAZOLE 40 MG/10 ML VIAL IV SCH (07:39)
[2021-03-30] MEDS: ENOXAPARIN 40 MG/0.4 ML SYRINGE SQ SCH (07:39)
[2021-03-30] MEDS: IPRATROPIUM 0.5 MG/2.5 ML NEBU INHALATION SCH ×2 (08:42→12:59)
[2021-03-30 08:44] VITALS: PULSE 92
--- NOTE | 2021-03-30 08:50 | CDI ---
Documentation Clarification Form Date: 03/30/2021 08:11:16 AM From: Irene Rodriguez Admit Date: 03/13/2021 06:30:00 PM Patient Name: Chelsea Frederick Visit Number: [id number] Discharge Date: ATTENTION: The Clinical Documentation Specialists (CDI) and [facility] Coding Staff appreciate your assistance in clarifying documentation. Please respond to the clarification below the line at the bottom and electronically sign. The CDI & [facility] Coding staff will review the response and follow-up if needed. Please note: Queries are made part of the Legal Health Record. If you have any questions, please contact the author of this message via ITS. Dr. Sanjay West There is a documentation of volume overload 03/29, Medicine progress notes. Additional clarification is requested. History/Risk Factors:85-year-old female presented to [facility] ED with diffuse abdominal pain sharp in nature with nausea for a couple of days. Medical History: COPD and HTN. 03/15, Medicine consult. Clinical Indicators: Patient admitting diagnosis: Perforated gastric ulcer. 03/29, Medicine progress note: Patient with lower extremity edema that is significant and most likely a component of volume overload as patient was receiving IV fluids along with TPN. VS/Pulse OX: 03/23 B/P 180/77; HR 109; Temp 98.3 oral F; RR 18; SpO2 95% 2L nc Echocardiogram Results: 03/17 EF 55-60% Mild aortic regurgitation, Trace to mild mitral regurgitation, Mild tricuspid regurgitation present. Mild pulmonary hypertension. Small pleural effusion. Chest X Ray:03/23 COPD. Small bilateral pleural effusions with prominent bibasilar atelectasis and / or consolidation. CT Abd Pelvis: 03/15 Periportal Halo can be seen in such entities as congestive heart failure. Treatment: 03/23 Lasix 40mg IV x 1; 03/23 03/24 Lasix 20mg IV Q12HR; 03/24 -2 Lasix 40mg IV Q12HR; 03/25 2/3 Lasix 40mg IV BID; 03/27 -/ dc Lasix 40mg PO Daily; 03/27 current Lasix 40mg PO BID. Stef davenport. 03/30 to current Lisinopril 10mg PO Daily. In your professional opinion, can you please clarify volume overload? [ ] Acute Diastolic Heart Failure (preserved EF) [ x ] CHF ruled out [ ] Other, please specify [ ] Unable to determine (Template Last Revised: March 2020) MTDD
[2021-03-30] MEDS ORDERED: lisinopriL 10 MG TAB PO SCH (09:00)
[2021-03-30 09:08] LABS: Anion Gap 8.5 mmol/L (10.00-18.00); Blood Urea Nitrogen 9.6 mg/dL (9.0-27.0); Carbon Dioxide 26.5 mmol/L (20.0-27.5); Non-African American GFR(CKD) 83.7 (60.0-200.0); Potassium 3.9 mmol/L (3.5-5.5)
[2021-03-30] MEDS: ONDANSETRON 4 MG/2 ML VIAL IVP PRN (09:35)
[2021-03-30 12:05] LABS: Basophils # (A) 0.04 X 10*3/uL (0.00-0.10); Basophils % (A) 0.5 %; Eosinophils # (A) 0.06 X 10*3/uL (0.04-0.35); Eosinophils % (A) 0.7 %; HCT 33.1 % (37.2-46.3); HGB 11.2 g/dL (12.0-15.0); Immature Grans, Automated 0.6 %; Lymphocytes # (A) 1.31 X 10*3/uL (0.90-5.00); Lymphocytes % (A) 16.2 %; MCH 30.5 pg (27.0-32.0); MCHC 33.8 g/dL (32.0-37.0); MCV 90.2 fL (80.0-97.0); Mean Platelet Volume 9.2 fL (9.5-12.2); Monocytes # (A) 0.86 X 10*3/uL (0.20-1.00); Monocytes % (A) 10.6 %; NRBC Per 100 WBC 0 /100 WBCS (0.0-0.0); Neutrophils # (A) 5.79 X 10*3/uL (1.80-7.70); Neutrophils % (A) 71.4 %; Platelet Count 308 X 10*3/uL (140-440); RBC 3.67 X 10*6/uL (4.10-5.20); RDW 13.8 % (11.5-14.5); WBC 8.11 X 10*3/uL (4.50-10.00)
--- NOTE | 2021-03-30 13:34 | P.DS ---
Providers Date of admission: 03/13/21 18:30 Expected date of discharge: 03/30/21 Attending physician: Lance Alexander Consults: 03/15/21 11:31 Consult Physician Routine Consulting Provider: Bj Gonzalez Consult Reason/Comments: medical management Do you want consulting provider notified?: Yes Primary care physician: Yina Mancuso [facility] Course: Discharge diagnosis 1. Perforated gastric ulcer with penetration into the lesser sac status post exploratory laparotomy, distal gastrectomy with gastrojejunostomy 2. Hypertension 3. Leukocytosis 4. Severe protein calorie malnutrition 5. Hypokalemia 6. Daily alcohol use 7. Bilateral lower extremity edema followed by medicine service. Discharged with oral Lasix per medicine service Hospital course This 85-year-old female who was transferred to the hospital for complaints of epigastric pain. Apparently her CAT scan showed some inflammatory changes around stomach. Patient had a computed tomography scan of abdomen and pelvis done with oral and IV contrast and was suspicious for gastric ulcer. Patient had EGD on 03/16/2021 showing a large penetrating ulcer of the antrum with tunnel. Patient status post exploratory laparotomy, distal gastrectomy with gastrojejunostomy for perforated gastric ulcer with penetration into the lesser sac. Patient's pain is controlled. She is tolerating diet. She is up and ambulating. She's afebrile. Her pain is controlled. Incision site clean dry and intact. Patient's discharge was held on Tuesday due to diarrhea and bilateral lower extremity edema. Patient received Imodium. Diarrhea is improved. And her lower extremity edema has also improved. Patient is been cleared by medicine service for discharge. She is stable for discharge. Please refer to chart for any further details. Physician Business Process Lead note has been reviewed by physician. Signing provider agrees with the documented findings, assessment, and plan of care. Patient Condition at Discharge: Stable Plan - Discharge Summary Discharge Rx Participant: No New Discharge Prescriptions: New Pantoprazole [Protonix] 40 mg PO AC-BRKFST #30 tab HYDROcodone/APAP 5-325MG [Holcomb 5-325] 1 tab PO Q6HR PRN 3 Days #12 tab PRN Reason: Pain Albuterol Inhaler [Ventolin Hfa Inhaler] 2 puff INHALATION RT-QID 30 Days #8 gm lisinopriL [Zestril] 10 mg PO DAILY 30 Days #30 tab Loperamide [Imodium] 4 mg PO QID PRN #30 cap PRN Reason: Diarrhea Furosemide [Lasix] 40 mg PO BID@0900,1600 30 Days #60 tab Budesonide-Formot 160-4.5 Mcg [Symbicort 160-4.5 Mcg Inhaler] 2 puff INHALATION BID 30 Days #10.2 gm Potassium Chloride [Potassium Chloride ER] 20 meq PO DAILY 30 Days #60 tab diphenhydrAMINE & Zinc Cream [Benadryl Cream] 1 applic TOPICAL BID #28 gm Continue traZODone HCL 50 mg PO HS Citalopram Hydrobromide [CeleXA] 40 mg PO DAILY Budesonide [Budesonide EC] 3 mg PO DAILY 30 Days #30 cap Multivit-Min/Iron/Folic/Lutein [Centrum Silver Women Tablet] 1 tab PO DAILY #30 tab Cholecalciferol [Vitamin D3 (25 Mcg = 1000 Iu)] 50 mcg PO DAILY Spiriva Respimat 1.25 Mcg/Act Inhaler 1 puff INHALATION RT-DAILY Cyanocobalamin (Vitamin B-12) [Vitamin B-12] 1,000 mcg PO DAILY Discharge Medication List Cholecalciferol [Vitamin D3 (25 Mcg = 1000 Iu)] 50 mcg PO DAILY 03/13/21 [History] Citalopram Hydrobromide [CeleXA] 40 mg PO DAILY 03/13/21 [History] Cyanocobalamin (Vitamin B-12) [Vitamin B-12] 1,000 mcg PO DAILY 03/13/21 [History] Spiriva Respimat 1.25 Mcg/Act Inhaler 1 puff INHALATION RT-DAILY 03/13/21 [History] traZODone HCL 50 mg PO HS 03/13/21 [History] HYDROcodone/APAP 5-325MG [Holcomb 5-325] 1 tab PO Q6HR PRN 3 Days #12 tab 03/27/21 [Rx] Pantoprazole [Protonix] 40 mg PO AC-BRKFST #30 tab 03/27/21 [Rx] Albuterol Inhaler [Ventolin Hfa Inhaler] 2 puff INHALATION RT-QID 30 Days #8 gm 03/30/21 [Rx] Budesonide [Budesonide EC] 3 mg PO DAILY 30 Days #30 cap 03/30/21 [Rx] Budesonide-Formot 160-4.5 Mcg [Symbicort 160-4.5 Mcg Inhaler] 2 puff INHALATION BID 30 Days #10.2 gm 03/30/21 [Rx] Furosemide [Lasix] 40 mg PO BID@0900,1600 30 Days #60 tab 03/30/21 [Rx] Loperamide [Imodium] 4 mg PO QID PRN #30 cap 03/30/21 [Rx] Multivit-Min/Iron/Folic/Lutein [Centrum Silver Women Tablet] 1 tab PO DAILY #30 tab 03/30/21 [Rx] Potassium Chloride [Potassium Chloride ER] 20 meq PO DAILY 30 Days #60 tab 03/30/21 [Rx] diphenhydrAMINE & Zinc Cream [Benadryl Cream] 1 applic TOPICAL BID #28 gm 03/30/21 [Rx] lisinopriL [Zestril] 10 mg PO DAILY 30 Days #30 tab 03/30/21 [Rx] Follow up Appointment(s)/Referral(s): [facility]Home Care [NON-STAFF] - As Needed Yina Mancuso DO [Primary Care Provider] - 03/30/21 11:15 am Lance Alexander MD [STAFF PHYSICIAN] - 1 Week (officed closed at this time patient to call and schedule appointment after D/C ) Patient Instructions/Handouts: Gastrectomy (DC) Activity/Diet/Wound Care/Special Instructions: HOME MEDICATIONS IN PHARMACY - SECURITY RECEIPT IN CHART No driving while taking Holcomb No lifting over 10 pounds You may shower. No soaking or tub baths for 2 weeks Very light activity until you are reevaluated at your follow up appointment with your surgeon Continue taking Lasix twice daily along with potassium supplements daily and use Yasmany wraps or compression stockings to lower extremities and elevate lower extremities while at rest Continue with albuterol inhaler as needed and continue with Symbicort inhaler twice daily Follow-up with primary care provider on discharge Follow-up with surgery as discussed for follow-up appointment along with staple removal Continue Imodium as needed for loose stools and hold if having constipation Discharge Disposition: HOME WITH HOME HEALTH SERVICES
--- NOTE | 2021-03-31 00:49 | P.PN ---
Subjective Progress Note Date: 03/30/21 - Reason for Consult Hypertension management - History of Present Illness 85-year-old the a pleasant female came in with compensative diffuse abdominal pain sharp in nature along with the nausea has been going on for couple days, patient denied any diarrhea. Patient doesn't have any fever chills doesn't have any leukocytosis patient has a CT of the abdomen which showed some a proximal to the stomach because of which patient was admitted to general surgery and patient is presently on metronidazole and levofloxacin. Concern for peptic ulcer disease and perforation. Patient pain significant improved. Patient blood pressure is bit elevated today. Patient will undergo upper GI endoscopy tomorro w. 03/16/2021 Patient is seen in follow up this morning and continues with abdominal pain. General surgery as attending plans on EGD today and patient is currently NPO. Patient denies any nausea or vomiting. Patient reports to passing gas and having bowel movements and denies blood in the stool. Patient is continued on IV ceftriaxone and flagyl for concern for possible perforation. No new labs today and will repeat in the am. 03/17/2021 Patient is seen and evaluated in follow-up and continues with abdominal pain. Patient underwent EGD yesterday which shows a large ulcer with tunneling and is scheduled to undergo partial gastrectomy with Dr. Alexander. Plans were for surgery on Tuesday although patient is having large amounts of bloody stools and will be going to surgery today. Patient was made nothing by mouth. Risks versus benefits were discussed with the patient and patient is willing to proceed with intervention. Patient is an intermediate risk given her long extensive history of continued tobacco abuse although given the new findings and urgency with bleeding patient should go for surgical intervention today. Patient denies any chest pain or shortness of breath. Patient is afebrile. No reports of nausea or vomiting and patient is nothing by mouth for the procedure. 03/18/2021 Patient is seen in follow up this morning and is status post exploratory laparotomy, distal gastrectomy with gastrojejunostomy and is being closely monitored. Patient is lethargic but easily arousable. Surgical dressing is dry and intact and patient continues with abdominal pain and binder is in place. Patient also continues with NG tube and is NPO requesting ice chips. Dietitian also consulted and patient to receive PICC line to initiate TPN. WBC increased to 16.1 most likely reactive and will monitor closely. Patient is afebrile and denies chest pain or shortness of breath. 03/19/2021 Patient is seen in follow-up today continues to have some abdominal pain although denies any worsening pain. Patient is continued nothing by mouth with NG tube and is receiving TPN. Patient denies any chest pain or shortness of breath. Patient states she does have a cough which is most likely chronic because she is continued ongoing nicotine use. Patient continues on IV ceftriaxone along with Flagyl and will continue. Patient is afebrile. Patient continues to be hypertensive and currently nothing by mouth so will continue with IV hydralazine and monitor closely. Patients potassium mildly low at 3.4 and does have potassium in the TPN and fluids although will replace and repeat labs recommended. 03/20/2021 Patient is seen this morning in follow up today and has had NG tube removed. Patient is more awake and alert today and continues with periods of confusion at times. Per RN, daughter reported to her that patient does drink almost daily and feels she is actively withdrawing. Will add CIWA and monitor closely. Patient also continues with dilaudid and recommend caution against excessive use. Patient denies any chest pain or shortness of breath and is currenly sitting up at the side of the bed on room air. IS at the bedside and encouraged the patient to continue using 10 times every hour while awake. No bowel sounds noted on exam and patient denies passing gas or bowel activity. Patient is being started on clear liquid diet and continues on TPN. 03/21/2021 Patient currently lying in the bed. Awake alert and oriented. Lethargic and drowsy. Status post partial gastrectomy with gastro jejunostomy on 03/17/2021 due to perforated gastric ulcer.. Patient has been afebrile. No complaints of chest pain or worsening shortness of breath. Patient is currently on TPN. Laboratory showed WBC 13.1 hemoglobin 12.1 and platelets 385 BUN 24 and creatinine 0.43 blood pressure is fairly controlled. We will add lisinopril. 03/22/2021 Patient is currently resting in bed. Awake and alert. Lethargic and sleepy. Remains on TPN. Continued on antibiotics above ceftriaxone and Flagyl. Blood pressure is still elevated with SBP in 170s. Patient will be continued on hydralazine IV and Norvasc. Lisinopril will be added. Patient has been afebrile. Currently requiring oxygen at 2 L via nasal cannula and saturating at 92%. Patient is also on full liquid diet. Lab data showed sodium 137 potassium 3.9 chloride 108 BUN 28 and creatinine 0.48 Patient has been afebrile. No nausea vomiting or diarrhea. No chest pain or shortness of breath. No cough or sputum production. 03/23/2021 Patient is seen in follow-up today and being followed closely. Continue to fol low with general surgery and patient is maintained on IV ceftriaxone along with Flagyl. Patient is on TPN although continuing to wean and diet has been started and tolerating thus far. Patient is having gas and bowel movements and patient states they are all loose stools which she appears to have chronically as she does have a history of colitis. Patient with lower extremity edema that is significant and most likely a component of volume overload as patient was receiving IV fluids along with TPN. Patient to be started on low-dose IV Lasix and will monitor intake and output along with electrolytes and kidney functions. Will repeat labs. White count 18.17 and patient is continued on ceftriaxone and Flagyl. Patient is afebrile. Patient denies any worsening abdominal pain. 03/24/2021 Patient is seen and evaluated this morning and denies any further abdominal discomfort and reports to having bowel movements that continue to be loose. Patient is urinating and diuresing well on IV Lasix as patient has continued bilateral lower extremity edema 2+ pitting and is having discomfort and pain of the legs. Will increase IV Lasix to 40 mg twice daily and monitor electrolytes and kidney functions closely. Patient is continued on antibiotics and recommend to continue. Monitor WBC closely. TPN being weaned. 03/25/2021 Patient is seen this morning lying in bed comfortably and easily arousable. Patient reports to not having a good nights sleep and has been urinating frequently. Patient requesting foss catheter and will attempt external device and discussed risks versus benefits of indwelling foss catheter and higher risk for infection. Patient continues to tolerate diet with no reports of nausea or vomiting noted. TPN has been discontinued. Patient bilateral lower extremity swelling significantly improved and will continue IV lasix and monitor closely. Will repeat am labs. WBC trending down. Patient continues on IV antibiotics. 03/26/2021 Patient evaluated this morning and sitting up at the side of the bed in no acute distress. Patient is tolerating diet and denies any abdominal pain. Patient maintained on IV lasix 40mg bid and will transition to oral lasix daily for a few days to assist with lower extremity edema. Swelling continues to improve. Patient needs encouragement to elevate lower extremities at rest. Potassium is low today at 2.7 and will replace and repeat am labs. WBC trending down as well. Patient is afebrile. 03/27/2021 Patient is currently resting in the bed. Awake alert and oriented. Denies any complaints of abdominal pain. No nausea vomiting. Patient does have diarrhea and C. difficile toxin was sent. Otherwise patient is having bilateral severe leg swelling with bruising of serous drainage. Current Lasix changed to twice daily. Potassium is being replaced. Improved to 3.5 today. Patient has been afebrile. Continues to be antibiotics in the form of ceftriaxone and Flagyl. Patient is tolerating oral diet. Supposed to be discharged today but held due to bilateral lower extremity swelling. 03/28/2021 Patient is currently resting in bed. Still having significant leg swelling. Continued on IV Lasix 40 g twice daily. Potassium level is 3.2 today. Which is being replaced. Otherwise patient is still having diarrhea. Ceftriaxone will be discontinued and continue with Flagyl at this time. C. difficile toxin is negative. Patient has been afebrile. No complaints of chest pain or shortness of air. No nausea vomiting abdominal pain or diarrhea. Patient is tolerating oral diet. Follow-up CBC and BMP tomorrow. 03/29/2021 Patient is currently resting in the bed. No complaints of chest pain or shortness of. Bilateral leg swelling is improving. Potassium is 3.1 which is being replaced. Diarrhea has improved as well. C. difficile toxin is negative. Continue with Flagyl and ceftriaxone has been discontinued. Laboratory showed WBC 6.9 hemoglobin 11.4 and platelets 338 Sodium 138 potassium 3.1 chloride 100 bicarb is 26.8 BUN 10 and creatinine 0.5 and calcium 7.9. Anticipate discharge in the next 24 hours to home with home physical therapy. 03/30/2021 Patient is seen and evaluated today currently sitting up at the side of the bed stating she is being discharged today and is ready to go home. Patient reports less frequent episodes of diarrhea and is tolerating Imodium. Patient is tolerating diet with no reports of abdominal pain. Patient has some concerns about follow-up appointments that are scheduled out here as she will be going to stay with her family that live quite a bit a ways. Patient will continue on oral Lasix twice daily along with potassium supplement and recommend and encourage follow-up labs and to continue with compression stockings and/or Yasmany wraps from the toes up to the knees and elevating while at rest. Patient needs encouragement often to elevate lower extremities and avoid itching and scratching as you can see on exam with multiple scabs from scratching noted. Wi ll add Benadryl and again encouraged the patient to avoid scratching. Labs: WBC is 8.11, hemoglobin is 11.2 , platelets are 308, sodium is 138, potassium 3.9, BUN is 26.5, creatinine is 0.6, calcium is 8.0 Review of systems: CONSTITUTIONAL: No fever, no malaise, no reports of fatigue. CARDIOVASCULAR: No chest pain, orthopnea, PND, no palpitations, no syncope. PULMONARY: No shortness of breath, no cough, no hemoptysis. GASTROINTESTINAL: no reports of nausea or vomiting. patient is passing gas and having loose stools although less frequent NEUROLOGICAL: No headaches, no weakness, no numbness. GENITOURINARY: Denies any burning micturition, frequency, or urgency. MUSCULOSKELETAL/RHEUMATOLOGICAL: Reports lower extremity swelling with some improvement All medications were reviewed. PHYSICAL EXAMINATION: GENERAL: The patient is alert and oriented x3, not in any acute distress. Thin build, cachetic HEENT: Pupils are round and equally reacting to light. EOMI. No scleral icterus. No conjunctival pallor. Normocephalic, atraumatic. No pharyngeal erythema. No thyromegaly. CARDIOVASCULAR: S1 and S2 present. No murmurs, rubs, or gallops. PULMONARY: Chest is clear to auscultation, no wheezing or crackles. ABDOMEN: Soft, no tenderness, non-distended, normoactive bowel sounds. No palpable organomegaly. abdominal binder noted. MUSCULOSKELETAL: No joint swelling or deformity. EXTREMITIES: No cyanosis, clubbing, bilateral lower extremity edema noted on the feet that extends up through the thighs with significant improvement noted. NEUROLOGICAL: Gross neurological examination did not reveal any focal deficits. generalized weakness SKIN: No rashes. multiple areas of scratching and scabs noted of the lower extremities with no obvious surrounding redness or cellulitis noted Assessment and plan: -Perforated gastric ulcer. Status post partial gastrectomy gastrojejunostomy on 03/17/2021. tolerating regular diet -status post EGD showing large penetrating ulcer with large tunneling within the ulcer. Patient underwent distal gastrectomy -possible acute alcohol withdrawal. Maintained on CIWA as needed. Not actively withdrawing -leukocytosis most likely reactive from recent surgery. improved -hypokalemia, improved -Hypertension -COPD without any acute exacerbation continue with albuterol inhalational treatments -Continued nicotine use: Counseling was provided -moderate protein calorie malnutrition with a bmi of 17.9 -DVT prophylaxis: As per primary service -GI prophylaxis -Full code, no intubation Plan: Recommend to continue with current medication management. Continue lisinopril and monitor blood pressure closely. Encouraged oral intake and has been tolerating regular diet. Recommend Yasmany wraps from bilateral lower extremities from the toes up to the knees and elevate lower extremity swelling rest. Continue lasix 40 bid and potassium supplements. WBC improved. Patient is status post exploratory laparotomy, distal gastrectomy with gastrojejunostomy. Patient is afebrile. Continue imodium as needed for loose stools. Patient reports some improvement and prescription provided. Encouraged increased activity as tolerated. Incentive spirometer at the bedside and encouraged the patient to use at least 10 times every hour while awake. Patient is scheduled to be discharged by surgery today and will be going to stay with family until feeling more stable. Objective - Vital Signs Vital signs: Vital Signs Temp 98.9 F 03/30/21 07:30 Pulse 92 03/30/21 08:53 Resp 18 03/30/21 07:30 BP 174/87 03/30/21 07:30 Pulse Ox 92 L 03/30/21 07:30 Intake & Output 03/29/21 03/30/21 03/30/21 18:59 06:59 18:59 Intake Total 296 Balance 296 Intake: Oral 296 Other: Voiding Method Toilet # Voids 3 3 # Bowel Movements 1 - Labs CBC & Chem 7: 03/30/21 04:49 03/30/21 04:49 Labs: Abnormal Lab Results - Last 24 Hours (Table) 03/30/21 Range/Units 04:49 Anion Gap 8.50 L (10.00-18.00) mmol/L Calcium 8.0 L (8.7-10.3) mg/dL
== END 2021-03-30 15:54 | disposition home health service (06) | DRG 326 ==
LOC: EC 18:01 → 4SSUR 18:30
PROVIDERS: ADMIT Surgery; ATTEND Surgery
PROC: 0DB68ZX Excision of Stomach, Via Natural or Artificial Opening Endoscopic, Diagnostic (ICD-10-PCS; 2021-03-16)
PROC: 0DB60ZZ Excision of Stomach, Open Approach (ICD-10-PCS; 2021-03-17)
PROC: 0D160ZA Bypass Stomach to Jejunum, Open Approach (ICD-10-PCS; principal; 2021-03-17 15:40)
PROC: 02HV33Z Insertion of Infusion Device into Superior Vena Cava, Percutaneous Approach (ICD-10-PCS; 2021-03-18)
DX: K25.5 Chronic or unspecified gastric ulcer with perforation (principal); E43 Unspecified severe protein-calorie malnutrition; Z68.1 Body mass index [BMI] 19.9 or less, adult; E87.6 Hypokalemia; E87.70 Fluid overload, unspecified; F17.200 Nicotine dependence, unspecified, uncomplicated; F32.A Depression, unspecified; I10 Essential (primary) hypertension; J44.9 Chronic obstructive pulmonary disease, unspecified; K52.9 Noninfective gastroenteritis and colitis, unspecified; R32 Unspecified urinary incontinence; Z79.899 Other long term (current) drug therapy; Z85.51 Personal history of malignant neoplasm of bladder
CPT/HCPCS: 36573; 43239; 71045; 74177; 80048; 80053; 82272; 82330; 83735; 84100; 84478; 85025; 85610; 87045; 87046; 87324; 88305; 88307; 93005; 93306; 94640; 94760; 99285